=== PATIENT | male | born 1955 | race Caucasian/White ===

== ENCOUNTER → 2020-10-07 10:25 | Outpatient (CLI) | payer MEDICARE, MEDICAID, SELFPAY ==
--- NOTE | 2020-10-07 10:57 | EKG12_ITS ---
Test Reason : PRE OP Blood Pressure : / mmHG Vent. Rate : 069 BPM Atrial Rate : 069 BPM P-R Int : 198 ms QRS Dur : 078 ms QT Int : 382 ms P-R-T Axes : 086 017 048 degrees QTc Int : 409 ms Normal sinus rhythm Low voltage QRS Septal infarct , age undetermined Abnormal ECG Confirmed by LUIS ENRIQUE BLACKMON, STEPHANIE ([id number]), editorial cartoonist ISAC CADE ([id number]) on 10/08/2020 12:23:44 PM Referred By: [facility] Confirmed By:STEPHANIE DUDLEY MD
[2020-10-07 11:44] LABS: Absolute Lymphocyte Count 1.78 X10^3/uL (0.83-4.51); Absolute Neutrophil Count 5.6 X10^3/uL (2.0-7.7); Basophil# 0.03 X10^3/uL; Basophil% 0.4 % (0-1); Eosinophils% 1.2 % (0-5); Hematocrit 47.5 % (40-54); Hemoglobin 16.6 g/dL (13.0-16.5); Lymphocyte # 1.78 X10^3/ul (0.83-4.51); Lymphocyte % 21.5 % (19-41); Mean Corp Hgb Conc 34.9 g/dL (32-36); Mean Corpuscular Hgb 31.4 pg (27.0-32.0); Mean Platelet Vol. 10.4 fl (6.2-12.0); Monocyte# 0.73 X10^3/uL; Monocyte% 8.8 % (0-10); NRBC Flagged by Analyzer 0 % (0-5); Neutrophil % 67.7 % (47-70); Platelet Count 284 K/mm3 (150-450); RBC Distribution Width CV 12.6 % (11.6-14.6); RBC Distribution Width SD 41.2 fl (35.1-43.9); Red Blood Count 5.28 M/mm3 (4.6-6.2); White Blood Count 8.3 K/mm3 (4.4-11.0)
[2020-10-07 12:20] LABS: AST(SGOT) 21 U/L (15-37); Alanine Aminotransfer ALT/SGPT 33 U/L (16-61); Albumin, Serum 3.8 g/dL (3.2-5.0); Alkaline Phosphatase 101 U/L (45-117); Anion Gap 7 (5-15); BUN 19 mg/dL (7-18); BUN/Creat Ratio 16.5 RATIO (10-20); Calcium,Total 9.6 mg/dL (8.5-10.1); Chloride 103 mmol/L (98-107); Creatinine, Serum 1.15 mg/dL (0.70-1.30); EST Glomerular Filtration Rate 68 mL/min (>60); Est Glom Filt Rate - Afr Amer 82 mL/min (>60); Glucose 147 mg/dL (74-106); Potassium 4.3 mmol/L (3.5-5.1); Protein, Total 7.8 g/dL (6.4-8.2); Sodium Level 138 mmol/L (136-145)
== END ==
DX: I10 Essential (primary) hypertension (principal); E08.3293 Diabetes mellitus due to underlying condition with mild nonproliferative diabetic retinopathy without macular edema, bilateral; E78.2 Mixed hyperlipidemia
CPT/HCPCS: 36415; 80053; 85025; 93005

== ENCOUNTER → 2020-11-03 10:41 | Outpatient (CLI) | payer MEDICARE, SELFPAY ==
[2020-10-21 14:28] VITALS: BMI 34.8
--- NOTE | 2020-11-03 10:42 | ECHOCS_ITS ---
Reason For Study: PRE-OP Procedure This was a 2D Doppler, Color Flow transthoracic echocardiogram. The study was technically difficult. Contrast injection was performed. Exam performed in department. Left Ventricle Normal LV size. Left ventricular systolic function is normal. The estimated ejection fraction is 65 %. No evidence for diastolic dysfunction. No regional wall motion abnormalities noted. Right Ventricle Normal RV size. Normal systolic function. Atria Normal left atrium. Normal right atrium. No doppler evidence for ASD. Mitral Valve There is no mitral annular calcification. Normal mitral valve. Trivial mitral valve insufficiency. Tricuspid Valve Normal tricuspid valve. Trivial tricuspid valve insufficiency. Unable to estimate RV systolic pressure/pulmonary artery pressure due to technically difficult study. Aortic Valve Trisinus/trileaflet aortic valve. Mild focal aortic valve calcification. Pulmonic Valve The pulmonic valve is not well visualized. Trivial pulmonic valve insufficiency. Great Vessels Normal sized aortic root. Pericardium/Pleural No pericardial effusion. Medication 22 gauge I.V. with prn adaptor inserted into right arm. Diluted definity 3ml given slow IV push to enhance endocardial definition. MMode/2D Measurements & Calculations LVIDd: 4.9 cm IVSd: 0.90 cm Ao root diam: 3.3 cm LVIDs: 3.4 cm LVPWd: 0.90 cm RVDd: 3.3 cm FS: 31.0 % LAV(MOD-bp): 36.5 ml LVAd ap4: 38.6 cm2 SV(MOD-sp4): 88.6 ml LAV(MOD-bp) Indexed: 17.0 ml/m2 LVLd ap4: 8.5 cm LAV(MOD-sp2): 37.8 ml EDV(MOD-sp4): 141.8 ml LAV(MOD-sp4): 33.1 ml EDV(sp4-el): 149.4 ml LVAs ap4: 21.3 cm2 LVLs ap4: 7.0 cm ESV(MOD-sp4): 53.2 ml ESV(sp4-el): 55.3 ml EF(MOD-sp4): 62.5 % EF(sp4-el): 62.9 % SV(sp4-el): 94.0 ml LA A4 area: 14.3 cm2 LA dimension(2D): 3.9 cm RA A4 area: 11.0 cm2 Time Measurements MV dec time: 0.23 sec Doppler Measurements & Calculations MV E max scott: 106.9 cm/sec Lat Peak E' Scott: 13.3 cm/sec Med Peak E' Scott: 10.7 cm/sec MV A max scott: 96.7 cm/sec E/E' lat: 8.1 E/E' med: 10.0 MV E/A: 1.1 Ao V2 max: 136.3 cm/sec LV V1 max: 99.2 cm/sec PA V2 max: 114.0 cm/sec Ao max P.4 mmHg LV V1 max P.9 mmHg ECHO/Echo Complete W/ Contrast Interpretation Summary The study was technically difficult. Contrast injection was performed. Left ventricular systolic function is normal. The estimated ejection fraction is 65 %. Trivial mitral valve insufficiency. Trivial tricuspid valve insufficiency. Mild focal aortic valve calcification. Trivial pulmonic valve insufficiency. Unable to estimate RV systolic pressure/pulmonary artery pressure due to techni low difficult study. No evidence for diastolic dysfunction. Ordering Physician: Gerry Gaffney Referring Physician: GURINDER HASKINS Performed By: Chelle Peralta RDCS
== END ==
PROVIDERS: Referring Provider Internal Medicine Cardiovascular Disease; Visit Provider Internal Medicine Cardiovascular Disease
DX: R94.31 Abnormal electrocardiogram [ECG] [EKG] (principal)
CPT/HCPCS: 93306; Q9957; A4216; C8929; J3490

== ENCOUNTER 2021-10-05 11:28 | Emergency (ER) | payer MEDICARE, SELFPAY ==
[2021-10-05 11:29] VITALS: BP 155/75; PULSE 91; RESP 16; TEMP 37.1; O2SAT 97; BMI 31.8
[2021-10-05 11:39] VITALS: BP 155/75; PULSE 91; RESP 16; TEMP 37.1; O2SAT 97
[2021-10-05 11:56] LABS: Bedside Glucose 128 mg/dL (74-106)
--- NOTE | 2021-10-05 13:03 | EDS_ITS ---
HPI History of Present Illness HPI Narrative: Patient presents with pain to his right foot that has been getting worse over the past couple weeks. Patient states he was seen at the [facility] clinic today and was referred to the emergency department for further evaluation. Patient states his pain is constant and aching. Patient states it is worse with ambulation. Patient states it is better with rest. Patient denies any paresthesias or weakness. Patient denies any trauma or injury. Chief Complaint: Cellulitis Informant: patient Onset/Context/Timing Onset: Weeks (2) Context: Gradual Onset Timing: Continuous Quality of Pain: Aching Location: Right foot Worsened by: Ambulation Relieved by: Rest Associated Symptoms Associated Symptoms: Negative for Parasthesia, Weakness or Loss of Funtion PFSH [facility] Medical History Abnormal electrocardiogram Essential hypertension Pre-op evaluation Pure hypercholesterolemia Type 2 diabetes mellitus Home Medications amlodipine 5 mg tablet 5 mg PO DAILY 10/13/20 [History Last Taken Unknown] bimatoprost 0.01 % eye drops (Lumigan) 1 drp ophthalmic (eye) QPM #2.5 mL 10/13/20 [Rx Last Taken Unknown] brimonidine 0.2 %-timolol 0.5 % eye drops (Combigan) 1 drp ophthalmic (eye) TID #5 mL 10/13/20 [Rx Last Taken Unknown] glipizide 10 mg tablet 10 mg PO BID #1 TAB 10/13/20 [Rx Last Taken Unknown] losartan 50 mg tablet 50 mg PO DAILY #1 TAB 10/13/20 [Rx Last Taken Unknown] omega-3 fatty acids 1,000 mg capsule (Fish Oil Concentrate) 1,000 mg PO DAILY #1 cap 10/13/20 [Rx Last Taken Unknown] cephalexin 500 mg capsule 500 mg PO Q6 #40 CAPSULES 10/05/21 [Rx Last Taken Unknown] Allergy/AdvReac Type Severity Reaction Status Date / Time No Known Allergies Allergy Verified 10/05/21 11:29 Family History Mother Diabetes Surgical History History of bilateral cataract extraction Status post laser trabeculoplasty of eye Social History Smoking Status: Former smoker alcohol intake: never substance use type: does not use caffeine: No ROS ROS ED Constitutional Constitutional ED: Denies chills or fever(s) Eyes Eyes: Denies blurry vision or change in vision ENT ENT ED: Denies rhinorrhea or sore throat Cardiovascular Cardiovascular: Denies chest pain or palpitations Respiratory/Chest Respiratory/Chest: Denies cough or dyspnea Gastrointestinal Gastrointestinal: Denies nausea or vomiting Genitourinary Genitourinary ED: Denies dysuria or hematuria Musculoskeletal Musculoskeletal: Denies back pain or neck pain Integumentary Denies abscess or rash Neurologic Neurologic: Denies headache(s) or weakness Allergic/Immunologic Allergic/Immunologic ED: Denies mouth swelling or urticaria EXAM Physical Exam Const Vital Signs: 10/05/21 11:29 10/05/21 11:39 10/05/21 14:04 Temperature 98.7 F 98.7 F Temperature Source Temporal Temporal Pulse Rate 91 91 81 Respiratory Rate 16 16 15 Blood Pressure 155/75 H 155/75 H 146/76 H Blood Pressure Mean 101 99 Pulse Ox 97 97 97 Oxygen Delivery Method Room Air Room Air Room Air Positive well nourished and well developed General Appearance ED: well developed and NAD HEENT Reports moist mucous membranes Neck full ROM Extremity Extremity Narrative: There is tenderness over the lateral aspect of the right foot. There is a grade 2 ulceration on the plantar aspect of the distal fifth metatarsal area. There is no active bleeding. There is some mild surrounding erythema. There is no discharge or drainage. Sensation was intact to light touch in all digits. Capillary refill was less than 2 seconds in all digits. There is good range of motion. There is no bony crepitance or step-off. There is no deformity noted. Neuro oriented x3, CN's II-XII intact bilaterally, moves all extremities and no sensory deficits noted Sensorium / Orientation: alert Motor Exam: strength 5/5 throughout Psych mental status grossly normal MDM MDM MDM Narrative Medical decision making narrative: X-rays of the right foot were obtained. There are 3 views. On my interpretation, there is no acute fracture or evidence of osteomyelitis. There are some degenerative changes noted. Radiologist also interpreted the x-rays and agrees. CBC was within normal limits. Comprehensive metabolic profile was within normal limits. Patient was given a dose of Ancef here. Patient was given a prescription for Keflex. Patient was given a dressing for his wound. Patient was instructed to follow-up with his primary care physician in 5 to 7 days. Patient was also given a referral for podiatry for follow-up and was agreeable with the plan. All questions were answered. Lab Data Attestation: I reviewed the patient's lab results. Labs: Laboratory Results - last 24 hr 10/05/21 10/05/21 10/05/21 11:51 13:22 13:22 WBC 9.6 RBC 5.20 Hgb 15.8 Hct 45.8 MCV 88.1 MCH 30.4 MCHC 34.5 RDW Std Deviation 41.1 RDW Coeff of Mariella 12.7 Plt Count 287 MPV 9.6 Immature Gran % (Auto) 0.400 Neut % (Auto) 81.0 H Lymph % (Auto) 10.9 L [place] % (Auto) 7.3 Eos % (Auto) 0.2 Baso % (Auto) 0.2 Absolute Neuts (auto) 7.8 H Absolute Lymphs (auto) 1.05 Nucleated RBC % 0 Sodium 138 Potassium 4.0 Chloride 103 Carbon Dioxide 27.0 Anion Gap 8 BUN 16 Creatinine 1.13 Estim Creat Clear Calc 64.30 Est GFR (MDRD) Af Amer 83 Est GFR (MDRD) Non-Af 69 BUN/Creatinine Ratio 14.2 Glucose 112 H Calcium 9.6 Total Bilirubin 1.20 H AST 18 ALT 19 Alkaline Phosphatase 94 Total Protein 7.7 Albumin 3.5 Globulin 4.2 Albumin/Globulin Ratio 0.8 L POC Glucose 128 H Radiography Diagnostic Testing: Clinical Impression(s) from Imaging Studies Foot X-Ray 10/05/21 13:49 IMPRESSION: Degenerative changes of the tarsal articulations. Electronically Signed: Kishore Elias MD at 14:20 EDT , Discharge Plan Triage Chief Complaint: Cellulitis ED Provider: Thai Duran Dx/Rx/DC Orders Clinical Impression: Open wound of right foot, Cellulitis of right foot Instructions: ED Cellulitis Prescriptions: New cephalexin [cephalexin] 500 mg capsule 500 mg PO Q6 Qty: 40 0RF No Action amlodipine 5 mg tablet 5 mg PO DAILY Combigan 0.2-0.5 % drops 1 drp ophthalmic (eye) TID Qty: 5 0RF omega-3 fatty acids [Fish Oil Concentrate] 1,000 mg capsule 1,000 mg PO DAILY Qty: 1 0RF glipizide 10 mg tablet 10 mg PO BID Qty: 1 0RF losartan 50 mg tablet 50 mg PO DAILY Qty: 1 0RF Lumigan 0.01 % drops 1 drp ophthalmic (eye) QPM Qty: 2.5 0RF Primary Care Provider: [facility],Salena Escudero Referrals: Clem Jarquin DPM [STAFF PHYSICIAN] - 5-7 Days [facility]ud[facility] [Primary Care Provider] - 5-7 Days Disposition Disposition: Home, Self Care
[2021-10-05 13:29] LABS: Absolute Lymphocyte Count 1.05 X10^3/uL (0.83-4.51); Absolute Neutrophil Count 7.8 X10^3/uL (2.0-7.7); Basophil# 0.02 X10^3/uL; Basophil% 0.2 % (0-1); Eosinophil# 0.02 X10^3/uL; Eosinophils% 0.2 % (0-5); Hematocrit 45.8 % (40-54); Hemoglobin 15.8 g/dL (13.0-16.5); Lymphocyte # 1.05 X10^3/ul (0.83-4.51); Lymphocyte % 10.9 % (19-41); Mean Corp Hgb Conc 34.5 g/dL (32-36); Mean Corpuscular Hgb 30.4 pg (27.0-32.0); Mean Corpuscular Volume 88.1 fL (80-94); Mean Platelet Vol. 9.6 fl (6.2-12.0); Monocyte% 7.3 % (0-10); NRBC Flagged by Analyzer 0 % (0-5); Neutrophil # 7.78 X10^3/uL (2.7-7.7); Platelet Count 287 K/mm3 (150-450); RBC Distribution Width CV 12.7 % (11.6-14.6); RBC Distribution Width SD 41.1 fl (35.1-43.9); White Blood Count 9.6 K/mm3 (4.4-11.0)
[2021-10-05 13:44] LABS: ALB/GLOB Ratio 0.8 RATIO (0.9-2.4); AST(SGOT) 18 U/L (15-37); Alanine Aminotransfer ALT/SGPT 19 U/L (16-61); Albumin, Serum 3.5 g/dL (3.2-5.0); Alkaline Phosphatase 94 U/L (45-117); Anion Gap 8 (5-15); BUN 16 mg/dL (7-18); BUN/Creat Ratio 14.2 RATIO (10-20); Calcium,Total 9.6 mg/dL (8.5-10.1); Chloride 103 mmol/L (98-107); Creatinine, Serum 1.13 mg/dL (0.70-1.30); EST Glomerular Filtration Rate 69 mL/min (>60); Est Glom Filt Rate - Afr Amer 83 mL/min (>60); Globulin 4.2 g/dL (2.2-4.2); Glucose 112 mg/dL (74-106); Protein, Total 7.7 g/dL (6.4-8.2); Sodium Level 138 mmol/L (136-145)
--- NOTE | 2021-10-05 13:49 | RAD_ITS ---
EXAM: XR RIGHT FOOT COMPLETE, 3 OR MORE VIEWS CLINICAL INDICATION: Injury/Pain Technologist Notes WOUND ON RIGHT FOOT WITH SWELLING. TECHNIQUE: Frontal, lateral and oblique views of the right foot. This report was created using Abril report generation technology. COMPARISON: None. FINDINGS: BONES/JOINTS: Degenerative changes of the tarsal articulations. There is a calcaneal spur. There is an enthesophyte involving the posterior superior calcaneus at the site of insertion of the Achilles tendon. No acute fracture. No subluxation. Normal alignment. No sclerotic or destructive changes observed. SOFT TISSUES: Unremarkable. No soft tissue swelling or gas. No radiopaque foreign body. VASCULATURE: There are atherosclerotic vascular calcifications. RAD/Foot min 3 Views IMPRESSION: Degenerative changes of the tarsal articulations. Electronically Signed: Kishore Elias MD at 14:20 EDT Reading Location ID and State: [facility] / [place] , Service support ,
[2021-10-05] MEDS: Cefazolin 1 GM/50 ML BAG IV (13:51)
[2021-10-05 14:04] VITALS: BP 146/76; PULSE 81; RESP 15; O2SAT 97
[2021-10-05 15:05] VITALS: BP 141/78; O2SAT 97
== END 2021-10-05 15:16 | disposition home or self-care (01) ==
PROVIDERS: Emergency Provider Emergency Medicine; Visit Provider Emergency Medicine
DX: S91.301A Unspecified open wound, right foot, initial encounter (principal); L03.115 Cellulitis of right lower limb; Z87.891 Personal history of nicotine dependence; X58.XXXA Exposure to other specified factors, initial encounter
CPT/HCPCS: 73630; 80053; 82962; 85025; 87070; 87077; 87186; 87205; 96365; 99283; J7030; A4216

== ENCOUNTER 2022-12-28 06:21 | Day surgery (SDC) | payer MEDICARE, MEDICAID, SELFPAY ==
--- NOTE | 2022-12-28 | IMM_PTH ---
PATIENT: KRYSTA BRUNSON LOC: EN U#:[id number] AGE/SX: 67/M ROOM: RE12/28/[address]: Dr. Lindsey Ritchie MD : 1955 BED: DIS: 12/28/2022 SPEC #: [id number] RECD: 12/29/22 14:19 STATUS: LIZZY REQ #: [id number] DARRON: 12/28/22 00:[address]: Lindsey Ritchie DEPT: IMMUNOHISTOCHEMISTRY RECD BY: Taylor Parr ENTERED: 12/29/22 14:21 SP TYPE: IMMUNO OTHR DR: [facility] Tissues: B - Rectum, NOS Procedures: MSH2 (add) MLH-1 (add) MSH6 (add) Anti-PMS2 (add) HER2 DUSTIN (add) P53 (add) MOC-31 (add) KI-67 (initial) PHYSICIAN [facility] INSTIT[facility] [address] [address] SPECIMEN INFORMATION: Tissue Source: B - Rectum mass biopsy Clinical Info: Diarrhea, bright red blood per rectum Specimen Number: [id number] CPT code: 89709, 30132 x7 METHODOLOGY: Deparaffinized sections of prefer/formalin-fixed tissue or PAP/DQ stained slides are incubated with monoclonal/polyclonal antibodies/oligonucleotide probes. Localization is made via biotin free immunoperoxidase method. Appropriate controls are performed and reacted as expected. Results on target cell population are indicated in the following table: RESULTS: ANTIBODY / CLONE RESULT Block B Her-2neu (CB11) negative (0) MOC-31 (4561) positive MLH-1 (M1) positive MSH2 (25D12) positive MSH6 (44) positive PMS2 (LSC9324) positive Ki-67 (30-9) positive, high P53 (DO-7) positive, missense mutation pattern These tests were developed and their performance characteristics determined by [facility]. They may not have been cleared or approved by the U.S. Food and Drug Administration. The FDA has determined that such clearance or approval is not necessary. The above immunohistochemical/dualISH markers are ordered and reviewed by the Pathologist. INTERPRETATION: B. Rectum mass, biopsy: Invasive adenocarcinoma. Result of Microsatellite Instability Study: Negative (no loss of mismatch protein; no microsatellite instability detected). SJ:lyric 12/30/2022
--- NOTE | 2022-12-28 | COLBX_PTH ---
PATIENT: KRYSTA BRUNSON LOC: EN U#:[id number] AGE/SX: 67/M ROOM: RE12/28/[address]: Dr. Lindsey Ritchie MD : 1955 BED: DIS: 12/28/2022 SPEC #: [id number] RECD: 12/28/22 08:03 STATUS: LIZZY NEHEMIAS #: [id number] DARRON: 12/28/22 00:[address]: Lindsey Ritchie DEPT: SURGICAL PATHOLOGY RECD BY: Taylor Parr ENTERED: 12/28/22 09:17 SP TYPE: COLON BX OTHR DR: Sal[facility] Tissues: A - Rectum, NOS B - Rectum, NOS Procedures: Frozen Section (charge) Surgery Specimen Level IV HEADER OPERATION: Colonoscopy with biopsies PRE-OP DIAGNOSIS: Diarrhea, bright red blood per rectum TISSUE SUBMITTED: A - Rectum mass biopsy, frozen section, B - Rectum mass biopsy FROZEN SECTION DIAGNOSIS Rectal mass, biopsy: Invasive adenocarcinoma. SJ:lyric 12/28/2022 MICROSCOPIC DIAGNOSIS A. Rectal mass, biopsy: Invasive adenocarcinoma. B. 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 See comment. SJ:lyric 12/29/2022 COMMENT B. Immunohistochemistry ([id number]) for microsatellite instability (mismatch repair of protein) will be performed and the results will be reported separately. Case has been reviewed in consultation with Dr. Rhoades who concurs with the above diagnosis. IDC:AM MICROSCOPIC DESCRIPTION Slides are reviewed. GROSS DESCRIPTION A - Received fresh for frozen section diagnosis labeled with the patient's name is a specimen designated rectum mass biopsy. The specimen consists of multiple irregular fragments of light blunt soft tissue that in aggregate measure 0.5 x 0.25 x 0.25 cm. The specimen is totally submitted for frozen section diagnosis in one cassette. B - Received in fixative is one container labeled with the patient's name and designated rectum mass biopsy. The specimen consists of multiple irregular fragments of light blunt soft tissue that in aggregate measure 1.0 x 0.3 x 0.1 cm. The specimen is totally submitted in one cassette. / SJ:lyric 12/28/2022 TC:0 CPT: 54068 x2, 15742
--- NOTE | 2022-12-28 06:38 | HP.PCM_ITS ---
History and Physical Date of Admission: 12/28/22 Date of Service: 12/21/22 MR#: [id number] Acct: [id number] Name: KRYSTA BRUNSON Rep #: [id number] : 1955 Provider: Dr. Lindsey Ritchie MD Age/Sex: 67/M Location: [facility] Status: Signed Intake Vital Signs 10/05/2210:29 12/21/2308:27 Height 5 ft 9 in 5 ft 9 in Weight: 186 lb BMI 27.4 BP 182/100 H Blood Pressure Location Rt brachial Position Sitting Respiration 19 H Pulse 76 Pulse Source Monitor Pulse Oximetry (%) 98 Oxygen Delivery Method room air Intake Visit Reasons: DIARRHEA, MELENA, WEIGHT LOSS Chief Complaint: diarrhea,melena,weightloss Allergies No Known Allergies Allergy (Verified 12/21/22 09:28) Medications amlodipine 5 mg tablet 5 mg PO DAILY 10/13/20 [History Confirmed 12/21/22] glipizide 10 mg tablet 10 mg PO BID #1 TAB 10/13/20 [Rx Confirmed 12/21/22] losartan 50 mg tablet 50 mg PO DAILY #1 TAB 10/13/20 [Rx Confirmed 12/21/22] omega-3 fatty acids 1,000 mg capsule (Fish Oil Concentrate) 1,000 mg PO DAILY #1 cap 10/13/20 [Rx Confirmed 12/21/22] [facility] Medical History (Updated 12/21/22 @ 09:[address] Lindsey Ritchie MD) Abnormal electrocardiogram Diarrhea Essential hypertension Pre-op evaluation Pure hypercholesterolemia Type 2 diabetes mellitus Surgical History History of bilateral cataract extraction Status post laser trabeculoplasty of eye Family History Mother Diabetes Social History Smoking Status: Former smoker alcohol intake: never substance use type: does not use caffeine: No HPI HPI HPI: 67-year-old male presents due to bright red blood/dark or red blood per rectum. Patient states that he has had this for the last couple of years but is gotten worse. Patient states he has this daily. Denies any abdominal pain states he may have little discomfort with bowel movements occasionally. Denies any nausea vomiting or reflux. Patient does have issues with fecal incontinence occasionally after eating depending on the meal size about 2-3 times a week. Patient states he was trying to lose weight intentionally and was decreasing the amount of food that he ate he states years ago used to be over 300 pounds and lost maybe 30 pounds in the last year but does not think that it is excessive. Patient has no family history of colon cancer. Patient has never had a colonoscopy. ROS General General: Yes weight change; No appetite, fatigue, colon cancer, breast cancer or weakness HEENT HEENT: Yes eye injury and eye surgery; No difficulty swallowing, swollen glands or hoarseness Endo Endocrine: Yes diabetes mellitus; No thyroid disease, thyroid cancer, Hair loss, heat intolerance or cold intolerance Skin Skin: No rash or changing moles Breast Breast: No left breast lump, right breast lump, nipple discharge, breast pain, abnormal mammogram, abnormal US or breast enlargement Musc Musculoskeletal: No back problems, arthritis, rheumatoid arthritis, gout or joint pain Cardio Cardiovascular: No murmur, pacemaker, heart disease, atrial fibrillation, high blood pressure, heart attack, heart stent, palpitations, shortness of breat with exertion or chest pain Psych Psychiatric: No depression, anxiety or hearing voices Resp Respiratory: No shortness of breath, No sleep apnea, No cough, No COPD, No asthma, No emphysema and No wheezing Gastro Gastrointestinal: No abdominal pain, Yes diarrhea, Yes constipation, Yes blood in stool, No acid reflux, No hemorrhoids, No ulcers, No gallbladder problem and No black,tarry stools Justus Hematologic: No blood thinners, No blood disorders, No bleeding, No anemia and No blood clots Neuro Neurologic: No system reviewed and no additional complaints, except as documen steven, No as per HPI, No abnormal gait, No abnormal hearing, No abnormal movements, No abnormal speech, No behavioral changes, No burning sensations, No confusion, No convulsions, No disequilibrium, No dizziness, No localized weakness, No frequent falls, No headache(s), No lack of coordination, No loss of vision, No memory loss, No numbness, No other visual disturbances, No radicular pain, No restless legs, No sensory deficit, No syncope, No tingling, No tremor(s), No weakness and No other Exam Const General: cooperative and no acute distress [facility] Head: normocephalic and atraumatic Neck Neck: supple Resp Effort & Inspection: normal respiratory effort Cardio Rate: regular rate GI Inspection: non-distended Palpation: soft and nontender Other: BASHIR: No internal and external hemorrhoids on exam, no masses, liquid brown stool with blood tinge. Skin General: no rashes or lesions noted Neuro General: CN's II-XI intact bilaterally Extrem General: normal to inspection Psych Mental Status: mental status grossly normal Attitude: cooperative Assessment and Plan Assessment and Plan (1) Diarrhea: Status: Acute (2) BRBPR (bright red blood per rectum): Status: Acute Orders: Orders ENTERIC PATHOGEN PANEL STOOL Today K58.9 - Irritable bowel syndrome without diarrhea, R19.7 - Diarrhea, unspecified Ova and Parasites 8623 Today K58.9 - Irritable bowel syndrome without diarrhea Stool Occult Blood iFOB Today R19.7 - Diarrhea, unspecified Stool Lactoferrin/WBC Today K58.9 - Irritable bowel syndrome without diarrhea Colonoscopy Today Plan We will get stool studies patient's been having diarrhea mostly patient's of the best historian but that may be 80/20 mostly diarrhea versus formed stool. On exam patient had liquidy blunt stool blood tinge. Patient currently states his weight loss was intentional lost about 30 pounds last year but he has been trying to eat less. I have discussed the above with the patient. I have offered the patient colonoscopy for evaluation. I have explained the risks/benefits of the procedure and described the procedure. I have discussed the risks with the patient, including but not limited to: infection, bleeding, perforation of the GI tract requiring emergency surgery, inability to complete the procedure, injury to any internal organs, complications of anesthesia, etc. - the patient understands and agrees to proceed. I have answered all the patient's questions to the patient's satisfaction and the patient has no further questions. The patient has been given instructions for the colon cleansing preparation. 1 day clears, MiraLAX Dulcolax split prep. Lindsey Ritchie M.D. Pager: [phone] [facility] [address] [place] [address], [facility], [address] [place] [address] Office: [phone] Coding Level of Care Code Off vis,new,level 4 Diagnoses Diarrhea R19.7 BRBPR (bright red blood per rectum) K62.5 12/21/22 0959 <Electronically signed by Lindsey Ritchie MD> Date Lindsey Ritchie MD
[2022-12-28 07:02] VITALS: BP 160/85; PULSE 82; RESP 17; TEMP 36.8; O2SAT 99; BMI 28.1
[2022-12-28] MEDS: Lactated Ringers 1,000 ML 15 ML IV (07:02)
[2022-12-28 07:08] LABS: Bedside Glucose 65 mg/dL (74-106)
--- NOTE | 2022-12-28 08:11 | CT_ITS ---
STUDY: CT CHEST, ABDOMEN T PELVIS WITH CONTRAST REASON FOR EXAM: Male, 67 years old. Rectal mass -- cancer workup. Rectal bleeding. 30 pound weight loss. RADIATION DOSAGE (If Supplied By Facility): CTDIvol = ( 19.83 ) mGy, DLP = ( 1593.85 ) mGycm TECHNIQUE: Transaxial imaging was performed following intravenous administration of Oral and amp; IV Gastrografin and amp; 100mL Isovue-300. Multiplanar coronal and sagittal images were reformatted. Individualized dose optimization techniques were used for this CT. COMPARISON: No relevant priors. FINDINGS: CHEST There is elevation of the right hemidiaphragm. Mild degree of linear atelectasis at the lung bases. There is no demonstrated pleural abnormality. There are calcifications of the coronary arteries. Normal mediastinum. Normal hilar regions. Normal unenhanced pulmonary arteries. There is atherosclerotic calcification of the aortic arch with tortuosity and elongation of the aortic arch and descending thoracic aorta. There are multi-level degenerative changes of the thoracic spine. There is no demonstrated abnormality of the visualized upper abdomen. ABDOMEN The visualized lung bases are unremarkable. The visualized portions of the heart are within normal limits. Normal liver. Normal gallbladder and extrahepatic biliary system. Normal spleen. Normal pancreas. Normal bilateral adrenal glands. 3 mm nonobstructive calculus in the lower pole calyx of the right kidney. Punctate nonobstructive calculi in the midportion right kidney. There is also evidence of a 5.6 mm calculus in the upper pole calyx of the right kidney. There are 2 adjacent nonobstructive intrarenal calculi in the upper pole of the left kidney. The larger calculus measures 4.3 mm. There is also evidence of a 5.2 mm calculus in the lower pole calyx of the left kidney. Normal visualized stomach. Normal small intestine. Large circumferential soft tissue mass in the rectosigmoid colon with narrowing of the lumen. Increased markings are seen in the surrounding peritoneal fat. Several small pericolonic lymph nodes are seen at that site. Dilatation of the transverse colon. The appendix is visualized and appears normal. There is diffuse atherosclerotic calcification of the abdominal aorta and its major visceral branches, without a demonstrated aneurysm. Normal inferior vena cava. Normal retroperitoneum. Normal abdominal wall. There are degenerative changes of the visualized lumbar spine. Deformity of the superior endplate of the L3 vertebrae with spondylosis. This may be traumatic in nature. PELVIS Mild degree of diffuse bladder wall thickening. Prostatic enlargement. There is calcification of the vas deferens. There is no pelvic fluid. There is diffuse atherosclerotic calcification of the pelvic arteries. CT/CT Chest, Abd, Pel w/Contrast IMPRESSION: Large circumferential mass involving the rectosigmoid colon with small lymph nodes seen in the adjacent pelvic fat. Multiple small nonobstructive bilateral intrarenal calculi. Prostatic enlargement. Electronically Signed: Gray Mathew MD at 12:34 EDT ,
[2022-12-28 08:20] VITALS: BP 160/85; BP 72/43; PULSE 61; RESP 16; TEMP 36.4; O2SAT 93
[2022-12-28 08:25] VITALS: BP 160/85; BP 89/68; PULSE 61; RESP 16; O2SAT 98
--- NOTE | 2022-12-28 08:26 | OP.COLON_ITS ---
Patient Name: Claudio Mclaughlin Procedure Date: 12/28/2022 7:20 AM Date of : 1955 Age: 67 Procedure: Colonoscopy Indications: Rectal bleeding Providers: Lindsey Ritchie MD Referring MD: Salena Escudero [facility] Medicines: Monitored Anesthesia Care Patient Profile: This is a 67 year old male. Last Colonoscopy: none. The patient's first colonoscopy is today. Complications: No immediate complications. Procedure: Pre-Anesthesia Assessment: - Prior to the procedure, a History and Physical was performed, and patient medications and allergies were reviewed. The patient's tolerance of previous anesthesia was also reviewed. The risks and benefits of the procedure and the sedation options and risks were discussed with the patient. All questions were answered, and informed consent was obtained. Prior Anticoagulants: The patient has taken no anticoagulant or antiplatelet agents. ASA Grade Assessment: Per anesthesia. After reviewing the risks and benefits, the patient was deemed in satisfactory condition to undergo the procedure. After I obtained informed consent, the scope was passed under direct vision. Throughout the procedure, the patient's blood pressure, pulse, and oxygen saturations were monitored continuously. The Colonoscope was introduced through the anus and advanced to the transverse colon. The colonoscopy was technically difficult and complex due to poor bowel prep with stool present. The patient tolerated the procedure well. The quality of the bowel preparation was poor. Scope In: 7:51:30 AM Scope Withdrawal Time 0 hours 10 minutes 4 seconds Scope Out: 8:10:42 AM Total Procedure Duration Time 0 hours 19 minutes 12 seconds Findings: The perianal and digital rectal examinations were normal. A fungating partially obstructing large mass was found in the rectum. The mass was circumferential. The mass measured eight cm in length. Oozing was present. Biopsies were taken with a cold forceps for histology. scope advanced to transverse colon- unable to see small polyps due to stool and fibrous debris with continued to clog the scope Impression: - Preparation of the colon was poor. - Likely malignant partially obstructing tumor in the rectum. Biopsied. - The examination was suspicious for a malignant-appearing tumor. Biopsied. Recommendation: - Discharge patient to home. - Resume previous diet. - Continue present medications. - Await pathology results. - Repeat colonoscopy at appointment to be scheduled because the bowel preparation was poor. Procedure Code(s): --- Professional --- 38583, 52, Colonoscopy, flexible; with biopsy, single or multiple Diagnosis Code(s): --- Professional --- D49.0, Neoplasm of unspecified behavior of digestive system K56.690, Other partial intestinal obstruction K62.5, Hemorrhage of anus and rectum CPT copyright 2021 [employer]. All rights reserved. The codes documented in this report are preliminary and upon coat fitter review may be revised to meet current compliance requirements. MD Lindsey Dugan MD 12/28/2022 8:25:51 AM This report has been signed electronically. Number of Addenda: 0 Note Initiated On: 12/28/2022 7:20 AM
--- NOTE | 2022-12-28 08:26 | PCM.PN.BLA ---
Progress Note Frozen from rectal mass was consistent with adenocarcinoma.
--- NOTE | 2022-12-28 08:27 | OP.CCLET_ITS ---
12/28/2022 Salena Escudero [facility] Re : Colonoscopy procedure for Claudio Deleon [facility] This procedure was performed on Wednesday, December 28, 2022. My impressions and recommendations are as follows: Impressions : - Preparation of the colon was poor. - Likely malignant partially obstructing tumor in the rectum. Biopsied. - The examination was suspicious for a malignant-appearing tumor. Biopsied. Recommendations : - Discharge patient to home. - Resume previous diet. - Continue present medications. - Await pathology results. - Repeat colonoscopy at appointment to be scheduled because the bowel preparation was poor. My findings are described in the full procedure note, which is enclosed. If I can be of further assistance, please feel free to contact me at Doctor phone number(s): , Work: . Sincerely, MD Lindsey Dugan MD 12/28/2022 8:25:51 AM This report has been signed electronically.
[2022-12-28 08:30] VITALS: BP 160/85; BP 98/44; PULSE 67; RESP 16; O2SAT 100
--- NOTE | 2022-12-28 09:10 | SUR.PHASEI ---
UNABLE TO OBTAIN VITALS SIGNS AFTER 8:40, PT ON BEDSIDE COMMODE.
[2022-12-28 09:11] VITALS: BP 125/48; BP 160/85; PULSE 64; RESP 18; TEMP 36.1; O2SAT 97
[2022-12-28 09:29] LABS: Absolute Lymphocyte Count 1.31 X10^3/uL (0.83-4.51); Absolute Neutrophil Count 5.3 X10^3/uL (2.0-7.7); Basophil# 0.03 X10^3/uL; Basophil% 0.4 % (0-1); Eosinophil# 0.11 X10^3/uL; Eosinophils% 1.5 % (0-5); Hematocrit 42.4 % (40-54); Lymphocyte # 1.31 X10^3/ul (0.83-4.51); Lymphocyte % 17.4 % (19-41); Mean Corpuscular Hgb 30.6 pg (27.0-32.0); Mean Corpuscular Volume 92.6 fL (80-94); Mean Platelet Vol. 9.9 fl (6.2-12.0); Monocyte# 0.72 X10^3/uL; Monocyte% 9.6 % (0-10); NRBC Flagged by Analyzer 0 % (0-5); Neutrophil # 5.32 X10^3/uL (2.7-7.7); Neutrophil % 70.7 % (47-70); Platelet Count 277 K/mm3 (150-450); RBC Distribution Width CV 13.3 % (11.6-14.6); RBC Distribution Width SD 45.4 fl (35.1-43.9); Red Blood Count 4.58 M/mm3 (4.6-6.2); White Blood Count 7.5 K/mm3 (4.4-11.0)
[2022-12-28 10:07] LABS: AST(SGOT) 15 U/L (15-37); Alanine Aminotransfer ALT/SGPT 15 U/L (16-61); Alkaline Phosphatase 102 U/L (45-117); Bilirubin, Direct 0.33 mg/dL (0.00-0.30); Globulin 3.8 g/dL (2.2-4.2); Protein, Total 6.8 g/dL (6.4-8.2)
[2022-12-28 10:38] LABS: Anion Gap 4 (5-15); BUN 15 mg/dL (7-18); BUN/Creat Ratio 14.6 RATIO (10-20); Calcium,Total 8.8 mg/dL (8.5-10.1); Chloride 105 mmol/L (98-107); Creatinine, Serum 1.03 mg/dL (0.70-1.30); EST Glomerular Filtration Rate 76 mL/min (>60); Est Glom Filt Rate - Afr Amer 92 mL/min (>60); Estimated Creatinine Clearance 67.33 ml/min; Glucose 81 mg/dL (74-106); Potassium 4.2 mmol/L (3.5-5.1); Sodium Level 137 mmol/L (136-145)
[2022-12-28 11:31] VITALS: BP 160/85
[2022-12-29 04:07] LABS: Carcinoembryonic Antigen 1.9 ng/mL (0.0-4.7)
== END 2022-12-28 11:32 | disposition home or self-care (01) ==
LOC: EN 06:22 → AC 06:23
PROVIDERS: Visit Provider Surgery
PROC: 0DJD8ZZ Inspection of Lower Intestinal Tract, Via Natural or Artificial Opening Endoscopic (ICD-10-PCS; CPT 45378; principal; 2022-12-28 07:55)
DX: C20 Malignant neoplasm of rectum (principal); K56.690 Other partial intestinal obstruction; E11.9 Type 2 diabetes mellitus without complications; I10 Essential (primary) hypertension; Z79.899 Other long term (current) drug therapy; Z79.84 Long term (current) use of oral hypoglycemic drugs; Z87.891 Personal history of nicotine dependence
CPT/HCPCS: 45380; 71260; 74177; 80048; 80076; 81002; 82378; 82962; 85025; 88305; 88331; 88341; 88342; J7120; Q9967; J2405

== ENCOUNTER → 2023-12-26 | Outpatient (CLI) | payer MEDICARE, SELFPAY ==
[2023-12-26 12:06] LABS: ALB/GLOB Ratio 0.8 RATIO (0.9-2.4); AST(SGOT) 18 U/L (15-37); Alanine Aminotransfer ALT/SGPT 17 U/L (16-61); Albumin, Serum 3.5 g/dL (3.2-5.0); Alkaline Phosphatase 113 U/L (45-117); Anion Gap 5 (5-15); BUN 15 mg/dL (7-18); BUN/Creat Ratio 15.2 RATIO (10-20); Chloride 104 mmol/L (98-107); Cholesterol 145 mg/dL (200); Creatinine, Serum 0.98 mg/dL (0.70-1.30); EST Glomerular Filtration Rate 80 mL/min (>60); Est Glom Filt Rate - Afr Amer 97 mL/min (>60); Globulin 4.4 g/dL (2.2-4.2); Glucose 101 mg/dL (74-106); High Density Lipoprotein 73 mg/dL; Potassium 4.1 mmol/L (3.5-5.1); Protein, Total 7.9 g/dL (6.4-8.2); Sodium Level 137 mmol/L (136-145); Triglycerides 83 mg/dL; Very Low Density Lipoprotein 17 mg/dL (5-40)
[2023-12-26 12:22] LABS: Absolute Lymphocyte Count 2.04 X10^3/uL (0.83-4.51); Absolute Neutrophil Count 5.6 X10^3/uL (2.0-7.7); Basophil# 0.03 X10^3/uL; Basophil% 0.4 % (0-1); Eosinophil# 0.15 X10^3/uL; Eosinophils% 1.8 % (0-5); Hematocrit 42.5 % (40-54); Hemoglobin 13.7 g/dL (13.0-16.5); Lymphocyte # 2.04 X10^3/ul (0.83-4.51); Lymphocyte % 23.9 % (19-41); Mean Corp Hgb Conc 32.2 g/dL (32-36); Mean Corpuscular Hgb 29.2 pg (27.0-32.0); Mean Corpuscular Volume 90.6 fL (80-94); Mean Platelet Vol. 10.1 fl (6.2-12.0); Monocyte% 8.2 % (0-10); NRBC Flagged by Analyzer 0 % (0-5); Neutrophil # 5.58 X10^3/uL (2.7-7.7); Neutrophil % 65.3 % (47-70); Platelet Count 341 K/mm3 (150-450); RBC Distribution Width CV 13.6 % (11.6-14.6); RBC Distribution Width SD 44.8 fl (35.1-43.9); Red Blood Count 4.69 M/mm3 (4.6-6.2); White Blood Count 8.5 K/mm3 (4.4-11.0)
[2023-12-26 14:07] LABS: Color, Urine Yellow (Yellow); Glucose, Dipstick Normal (Normal); Ketone-Dipstick Negative (Negative); Leukocyte Esterase-Dipstick 25 /ul (Negative); Nitrite-Dipstick Negative (Negative); Occult Blood-Urine 10 /ul (Negative); Protein-Dipstick 30 mg/dl (Negative); Urine Bilirubin Dipstick Negative (Negative); Urine Clarity Turbid (Clear); Urine Urobilinogen 1 mg/dl (Normal)
== END | disposition home or self-care (01) ==
LOC: VSLAB 10:42
PROVIDERS: PCP Nurse Practitioner Family; Visit Provider Nurse Practitioner Family
DX: E11.9 Type 2 diabetes mellitus without complications (principal); E78.2 Mixed hyperlipidemia; E55.9 Vitamin D deficiency, unspecified; F44.89 Other dissociative and conversion disorders; R30.0 Dysuria
CPT/HCPCS: 36415; 80053; 80061; 81002; 82306; 85025; 87086; 87088

== ENCOUNTER → 2024-03-26 | Outpatient (CLI) | payer MEDICARE, SELFPAY ==
[2024-03-26 12:52] LABS: Absolute Lymphocyte Count 1.52 X10^3/uL (0.83-4.51); Absolute Neutrophil Count 4.8 X10^3/uL (2.0-7.7); Basophil# 0.04 X10^3/uL; Basophil% 0.5 % (0-1); Eosinophil# 0.11 X10^3/uL; Eosinophils% 1.5 % (0-5); Hematocrit 39.2 % (40-54); Hemoglobin 12.8 g/dL (13.0-16.5); Lymphocyte # 1.52 X10^3/ul (0.83-4.51); Lymphocyte % 20.6 % (19-41); Mean Corp Hgb Conc 32.7 g/dL (32-36); Mean Corpuscular Volume 88.9 fL (80-94); Mean Platelet Vol. 9.4 fl (6.2-12.0); Monocyte# 0.91 X10^3/uL; Monocyte% 12.3 % (0-10); NRBC Flagged by Analyzer 0 % (0-5); Neutrophil # 4.78 X10^3/uL (2.7-7.7); Neutrophil % 64.8 % (47-70); Platelet Count 312 K/mm3 (150-450); RBC Distribution Width CV 13.2 % (11.6-14.6); RBC Distribution Width SD 43.3 fl (35.1-43.9); Red Blood Count 4.41 M/mm3 (4.6-6.2); White Blood Count 7.4 K/mm3 (4.4-11.0)
[2024-03-26 13:18] LABS: ALB/GLOB Ratio 0.7 RATIO (0.9-2.4); AST(SGOT) 17 U/L (15-37); Alanine Aminotransfer ALT/SGPT 19 U/L (16-61); Albumin, Serum 3.2 g/dL (3.2-5.0); Alkaline Phosphatase 105 U/L (45-117); Anion Gap 4 (5-15); BUN 22 mg/dL (7-18); BUN/Creat Ratio 20.8 RATIO (10-20); Calcium,Total 9.6 mg/dL (8.5-10.1); Chloride 103 mmol/L (98-107); Creatinine, Serum 1.06 mg/dL (0.70-1.30); EST Glomerular Filtration Rate 74 mL/min (>60); Est Glom Filt Rate - Afr Amer 89 mL/min (>60); Globulin 4.5 g/dL (2.2-4.2); Glucose 86 mg/dL (74-106); Potassium 4.1 mmol/L (3.5-5.1); Protein, Total 7.7 g/dL (6.4-8.2); Sodium Level 137 mmol/L (136-145)
== END | disposition home or self-care (01) ==
LOC: VSLAB 10:38
PROVIDERS: PCP Nurse Practitioner Family; Visit Provider Nurse Practitioner Family
DX: C18.9 Malignant neoplasm of colon, unspecified (principal)
CPT/HCPCS: 36415; 80053; 85025

== ENCOUNTER 2024-04-08 16:13 | Inpatient (IN) | payer MEDICARE, SELFPAY ==
[2024-04-08] VITALS (31 sets, daily range): BP systolic 64–127; BP diastolic 19–81; PULSE 71–83; RESP 13–56; TEMP 36.6–36.9; O2SAT 95–99; BMI 27.4
--- NOTE | 2024-04-08 16:33 | EKG12_ITS ---
Test Reason : GENERAL Blood Pressure : */* mmHG Vent. Rate : 75 BPM Atrial Rate : 75 BPM P-R Int : 184 ms QRS Dur : 78 ms QT Int : 352 ms P-R-T Axes : -4 46 11 degrees QTcB Int : 393 ms Normal sinus rhythm Normal ECG Confirmed by ALLEGRA BLACKMON, MUNDO ([id number]), assistant editor ISAC CADE ([id number]) on 04/11/2024 2:25:03 PM Referred By: Confirmed By: MUNDO DINH MD
--- NOTE | 2024-04-08 17:01 | CT_ITS ---
STUDY: CT CERVICAL SPINE WITHOUT CONTRAST REASON FOR EXAM: Male, 69 years old. Trauma RADIATION DOSAGE (If Supplied By Facility): CTDIvol = ( 22.18 ) mGy, DLP = ( 441.74 ) mGycm TECHNIQUE: High resolution transaxial imaging was performed without contrast material. Sagittal and coronal images were reconstructed. Individualized dose optimization techniques were used for this CT. COMPARISON: None FINDINGS: Normal craniovertebral junction. There are degenerative changes of the anterior atlantoaxial articulation. Normal odontoid process. There is reversal of the normal cervical lordosis. There is no acute fracture. There is demineralization of the vertebral bodies and posterior osseous elements. C2-3: Mild spurring. Mild facet spurring. No canal stenosis. Neural foramina are patent. C3-4: Disc space narrowing. Spurring. Facet spurring. Mild canal stenosis. Left foraminal narrowing. C4-5: Disc space narrowing. Spurring and disc bulge. Mild facet spurring. Moderate canal stenosis. Mild foraminal narrowing. C5-6: Disc space narrowing with endplate change. Spurring. Mild facet spurring. Severe canal stenosis. Bilateral foraminal narrowing. C6-7: Disc space narrowing. Spurring asymmetric to the left. Facet spurring. Moderate canal stenosis. Right greater than left foraminal narrowing. C7-T1: Disc space narrowing. Spurring is noted to the left. No canal stenosis. Left foraminal narrowing. Normal visualized soft tissue structures. There are atherosclerotic calcifications. CT/Spine Cervical without Contras IMPRESSION: Multilevel degenerative changes, as described above. Electronically Signed: Reed Delgado MD at 19:48 EST ,
--- NOTE | 2024-04-08 17:01 | CT_ITS ---
STUDY: CT BRAIN WITHOUT CONTRAST REASON FOR EXAM: Male, 69 years old. Fall, trauma RADIATION DOSAGE (If Supplied By Facility): CTDIvol = ( 44.99 ) mGy, DLP = ( 829.85 ) mGycm TECHNIQUE: Transaxial CT imaging of the brain was performed without administration of intravenous contrast material. Individualized dose optimization techniques were used for this CT. COMPARISON: No relevant priors. FINDINGS: Normal soft tissue structures. Normal calvarium. There is moderate cerebral atrophy with widening of the extra-axial spaces and ventricular dilatation. Normal white matter tracts of the cerebral hemispheres. Normal basal ganglia and thalami. Normal brainstem. There is mild cerebellar atrophy. 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 There is no intracranial hemorrhage. There are no findings of an acute ischemic infarction. Normal visualized paranasal sinuses. CT/Brain/Head without Contrast IMPRESSION: Chronic involutional changes of the brain. Electronically Signed: Reed Delgado MD at 19:32 EST ,
[2024-04-08 17:02] LABS: Eosinophil# 0.16 X10^3/uL; Hematocrit 35.3 % (40-54); Hemoglobin 11.8 g/dL (13.0-16.5); Lymphocyte # 0.79 X10^3/ul (0.83-4.51); Mean Corp Hgb Conc 33.4 g/dL (32-36); Mean Corpuscular Hgb 29.2 pg (27.0-32.0); Mean Corpuscular Volume 87.4 fL (80-94); Mean Platelet Vol. 9.6 fl (6.2-12.0); Monocyte# 0.79 X10^3/uL; NRBC Flagged by Analyzer 0 % (0-5); Neutrophil # 22.63 X10^3/uL (2.7-7.7); POSITIVE DIFFERENTIAL YES; Platelet Count 227 K/mm3 (150-450); RBC Distribution Width CV 13.4 % (11.6-14.6); RBC Distribution Width SD 42.9 fl (35.1-43.9); Red Blood Count 4.04 M/mm3 (4.6-6.2); White Blood Count 24.8 K/mm3 (4.4-11.0)
[2024-04-08 17:08] LABS: Differential Indicated SCAN CRITERIA MET
[2024-04-08] MEDS: 0.9% Normal Saline (1000mL) 1,000 ML 1000 ML IV (17:20)
[2024-04-08 17:21] LABS: Lactic Acid 1.7 mmol/L (0.4-1.9)
[2024-04-08 17:23] LABS: ALB/GLOB Ratio 0.7 RATIO (0.9-2.4); AST(SGOT) 68 U/L (15-37); Alanine Aminotransfer ALT/SGPT 28 U/L (16-61); Albumin, Serum 2.9 g/dL (3.2-5.0); Alkaline Phosphatase 82 U/L (45-117); Anion Gap 6 (5-15); BUN 33 mg/dL (7-18); BUN/Creat Ratio 21.9 RATIO (10-20); Calcium,Total 8.9 mg/dL (8.5-10.1); Chloride 99 mmol/L (98-107); Creatinine, Serum 1.51 mg/dL (0.70-1.30); EST Glomerular Filtration Rate 49 mL/min (>60); Est Glom Filt Rate - Afr Amer 59 mL/min (>60); Estimated Creatinine Clearance 44.67 ml/min; Glucose 58 mg/dL (74-106); Potassium 4.6 mmol/L (3.5-5.1); Protein, Total 6.9 g/dL (6.4-8.2); Sodium Level 134 mmol/L (136-145); Troponin-I HS (w/2H Reflex) 26 pg/mL (3.0-78.0)
--- NOTE | 2024-04-08 17:30 | CT_ITS ---
STUDY: CT ABDOMEN AND PELVIS WITH CONTRAST REASON FOR EXAM: Male, 69 years old. Diarrhea, rectal mass RADIATION DOSAGE (If Supplied By Facility): CTDIvol = ( 18.14 ) mGy, DLP = ( 1790.46 ) mGycm TECHNIQUE: Transaxial images were obtained from the dome of the diaphragm to the symphysis pubis without oral contrast. IV 100mL Isovue-370 was administered. Sagittal and coronal images were reconstructed. Individualized dose optimization techniques were used for this CT. COMPARISON: December 28, 2022 FINDINGS: The visualized lung bases are unremarkable. There are coronary artery calcifications. Normal liver. Normal gallbladder and extrahepatic biliary system. Normal spleen. Normal pancreas. Normal bilateral adrenal glands. There are at least 3 stones in each kidney measuring up to 0.5 cm . No hydronephrosis. Normal visualized stomach. Normal small intestine. There is wall thickening and mass in the rectum. There are infiltrative changes and lymph nodes in the perirectal space. There is moderate stool in the colon. The appendix is visualized and appears normal. There is diffuse atherosclerotic calcification of the abdominal aorta, without a demonstrated aneurysm. Normal inferior vena cava. Normal retroperitoneum. Normal urinary bladder. There is no free fluid in the abdomen or pelvis. Normal abdominal wall. There are diffuse degenerative changes of the visualized lumbar spine. CT/Abdomen/Pelvis W IV Cont ONLY IMPRESSION: Rectal wall thickening and mass with perirectal lymph nodes consistent with rectal carcinoma. Moderate stool. No obstruction. Bilateral renal stones. No hydronephrosis. Electronically Signed: Reed Delgado MD at 19:44 EST ,
--- NOTE | 2024-04-08 17:30 | CT_ITS ---
STUDY: CTA CHEST REASON FOR EXAM: Male, 69 years old. Dizziness, fall, concern for pe RADIATION DOSAGE (If Supplied By Facility): CTDIvol = ( 18.14 ) mGy, DLP = ( 1790.46 ) mGycm TECHNIQUE: The examination was performed with the intravenous administration of IV 100mL Isovue-370. Post-processing of the angiographic images was performed, with multiplanar reformation and 3D reconstruction. Individualized dose optimization techniques were used for this CT. COMPARISON: CT December 28, 2022 FINDINGS: Normal enhancement of the main pulmonary artery and right and left pulmonary arteries. Normal enhancement of the bilateral peripheral pulmonary arteries. There is no demonstrated pulmonary embolism. There is atherosclerotic calcification of the aortic arch with tortuosity. There is no demonstrated aortic dissection. There are calcifications of the coronary arteries. Normal mediastinum. Normal hilar regions. Normal visualized trachea and bronchi. Stable elevation of the right hemidiaphragm. Normal pulmonary parenchyma. Normal pleura. Normal chest wall structures. There are degenerative changes of thoracic spine. Normal visualized upper abdomen. CT/CTA Chest W/WO Contrast IMPRESSION: CTA chest examination, without a demonstrated pulmonary embolism or arterial dissection. No focal infiltrate or edema. Electronically Signed: Reed Delgado MD at 19:19 EST ,
[2024-04-08 17:31] LABS: D-Dimer Quantitative (DVT/PE) 6.07 FEU/ug/m (0.27-0.49)
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
[2024-04-08 17:50] LABS: CPK Total, Creatine Kinase 1737 U/L (39-308); Magnesium 1.8 mg/dL (1.6-2.6)
[2024-04-08 17:57] LABS: Atypical Lymphocyte 1+ %; Hypersegmented Neutrophils RARE; Lymphocyte 1 % (19-41); Metamyelocyte 1 % (0-1); Monocyte 1 % (0-10); Neutrophil-Segmented 97 % (47-70); Platelet Morphology LARGE; Total Cells Counted 100 (MANUAL DIFF)
[2024-04-08 17:58] LABS: Burr Cells RARE; Platelet Estimate ADEQUATE (ADEQ)
[2024-04-08 17:59] LABS: Scan Smear per Review Criteria MANUAL DIFF
[2024-04-08 18:01] LABS: Absolute Lymphocyte Count 0.25 X10^3/uL (0.83-4.51); Absolute Neutrophil Count 24.1 X10^3/uL (2.0-7.7)
--- NOTE | 2024-04-08 18:11 | ED.RN ---
blood sugar noted to be 58 in the lab results. sandwich, juice and cookies given per ok by Dr. Adams
[2024-04-08 18:19] LABS: BNP,B-Type NATRIURETIC PEPTIDE 87.2 pg/mL (0-100)
--- NOTE | 2024-04-08 18:21 | ED.RN ---
brother Art called per pt request
[2024-04-08] MEDS: Dextrose 10%-Water 250 ML 999 ML IV (18:31)
[2024-04-08] MEDS: 0.9% Normal Saline (1000mL) 1,000 ML 999 ML IV ×2 (18:31→21:35)
[2024-04-08 18:58] LABS: Reflex Troponin-HS? (from REC) Y
[2024-04-08] MEDS: Vancomycin HCl 2,000 MG in 0.9% Normal Saline (500mL Bag) 500 ML 250 MG IV (19:14)
[2024-04-08 20:18] LABS: Troponin-I HS 24 pg/mL (3.0-78.0)
--- NOTE | 2024-04-08 21:11 | PCM.HP.STD ---
[facility] - General General Date of Admission: 04/08/24 Date of Service: 04/08/24 Chief Complaint: Generalized Weakness, Fall and Chronic Diarrhea. HPI Narrative KRYSTA MCLAUGHLIN, is a 69 M with a past medical history of essential hypertension; on losartan, hyperlipidemia, overweight; with BMI of 27.5 this admission, DM-2; of unknown control on glipizide, history of glaucoma; s/p laser trabeculoplasty on timolol drops, history of cataracts; s/p extraction, history of tobacco abuse, OA; with chronic back pain, history of BRBPR and chronic diarrhea for the past year with known rectal adenocarcinoma diagnosed a year ago on colonoscopy by Dr. Ritchie - but patient never followed up because he was scared who now presents to [facility] ER complaining of generalized weakness, fall and chronic diarrhea. Mr. Mclaughlin reports his symptoms began about an hour prior to arrival with the abrupt-onset of dizziness while he was walking out to his mailbox with patient then falling forward and unable to get up so a bystander activated EMS. Upon further questioning he also admitted to feeling generally weak with difficulty getting up off the couch. He admits to a reddish color of his stools with frequent BM's and fecal incontinence with intermittent moderate lower abdominal pain but he denies associated fever, chills, nausea, vomiting, chest pain or dysuria. In the ER he was diagnosed with suspected Sepsis with Septic Shock; with severe hypotension refractory to treatment with fluid boluses requiring Levophed along with Leukocytosis of 24.8K with Left-shift with Chronic Diarrhea in the setting of known and chronically untreated Rectal Adenocarcinoma and Rhabdomyolysis of 1,737 mg/dL present on admission complicated by a highly elevated d-dimer of 6.07 present on admission and Hypoglycemia of 58 mg/dL present on admission suspected to be due to an Adverse Drug Reaction to glipizide and he was then admitted to the ICU for treatment under the Sepsis protocol for a stay that is expected to extend beyond 2 midnights. [facility] Medical History Wears glasses Diabetes Back pain Injury of head and neck Former smoker History of echocardiogram Hypertension Cardiology follow-up encounter Diarrhea Pre-op evaluation Abnormal electrocardiogram Type 2 diabetes mellitus Pure hypercholesterolemia Essential hypertension Home Medications ?Medication ?Instructions ?Recorded ?Last Taken ?Type losartan 50 mg tablet 50 mg PO DAILY #1 TAB 10/13/20 Unknown Rx glipizide 5 mg tablet, extended 5 mg PO DAILY 04/08/24 Unknown History release 24 hr timolol maleate 0.5 % eye drops 1 drp ophthalmic (eye) BID 04/08/24 Unknown History Allergy/AdvReac Type Severity Reaction Status Date / Time No Known Allergies Allergy Verified 04/08/24 16:14 Family History Mother Diabetes Surgical History History of bilateral cataract extraction Status post laser trabeculoplasty of eye Social History Smoking Status: Former smoker alcohol intake: never substance use type: does not use caffeine: No ROS ROS Narrative Review of Systems: Constitutional: Patient admits to lightheadedness and generalized weakness but he denies fever or chills. Eyes: Patient denies changes in vision or discharge from eyes. ENT: Patient denies runny nose, sore throat or ear pain. Resp: Patient denies SOB or cough. CV: Patient admits to lightheadedness with fall and inability to get up as per HPI. GI: Patient admits to reddish discoloration of stools with chronic diarrhea and fecal incontinence with intermittent lower abdominal pain as per HPI. : Patient denies dysuria or hematuria. MSK: Patient denies arthralgias or myalgias. Skin: Patient denies rash, abscess or jaundice. Psych: Patient denies symptoms of uncontrolled depression or anxiety. Neuro: Patient admits to lightheadedness with fall but he denies headache or paresthesias. Allergy: Patient denies lip swelling, tongue swelling or urticaria. Hematology: Patient admits to reddish discoloration of his stools. Endocrinology: Patient denies polyuria, polydipsia or polyphagia. 14 point ROS otherwise negative except for positives noted above in HPI. Vital Signs Vital Signs Vital Signs: 04/08/24 16:14 04/08/24 16:15 04/08/24 16:24 Temperature 98.2 F 98.2 F Temperature Source Oral Oral Pulse Rate 75 72 Respiratory Rate 18 16 Respiratory Effort Normal Non-Labored Respiratory Depth Normal Respiratory Pattern Normal Blood Pressure 99/40 L 99/40 L Blood Pressure Mean 59 59 Pulse Ox 95 95 Oxygen Delivery Method Room Air Room Air Room Air 04/08/24 17:20 04/08/24 17:24 04/08/24 17:30 Temperature 98.5 F Temperature Source Oral Pulse Rate 74 79 77 Respiratory Rate 13 16 18 Respiratory Effort Respiratory Depth Respiratory Pattern Blood Pressure 93/46 L Blood Pressure Mean 61 Pulse Ox 96 97 96 Oxygen Delivery Method Room Air 04/08/24 17:31 04/08/24 17:45 04/08/24 17:47 Temperature Temperature Source Pulse Rate 77 81 Respiratory Rate 16 19 H Respiratory Effort Respiratory Depth Respiratory Pattern Blood Pressure 113/35 L 114/77 Blood Pressure Mean 55 86 Pulse Ox 96 Oxygen Delivery Method 04/08/24 18:00 04/08/24 18:00 04/08/24 18:15 Temperature 98.4 F Temperature Source Oral Pulse Rate 81 78 Respiratory Rate 19 H 26 H Respiratory Effort Respiratory Depth Respiratory Pattern Blood Pressure 105/38 L 105/38 L 107/72 Blood Pressure Mean 60 56 83 Pulse Ox 98 96 Oxygen Delivery Method Room Air 04/08/24 18:30 04/08/24 18:45 04/08/24 19:00 Temperature Temperature Source Pulse Rate 81 82 Respiratory Rate 26 H 23 H 15 Respiratory Effort Respiratory Depth Respiratory Pattern Blood Pressure 127/44 H 112/52 L 89/40 L Blood Pressure Mean 68 65 47 Pulse Ox 97 98 98 Oxygen Delivery Method 04/08/24 19:15 04/08/24 19:16 04/08/24 20:17 Temperature Temperature Source Pulse Rate 83 73 Respiratory Rate 48 H 26 H 18 Respiratory Effort Respiratory Depth Respiratory Pattern Blood Pressure 100/19 L 106/81 H 86/49 L Blood Pressure Mean 41 90 61 Pulse Ox 97 97 Oxygen Delivery Method Room Air Weight Weight: 180 lb 8.937 oz Body Mass Index (BMI) 27.4 Physical Exam Const alert, oriented x3, no apparent distress and average body habitus Constitutional Narrative: Patient appears anxious and acutely ill. General Appearance: cooperative HEENT normocephalic, head/scalp atraumatic, hearing grossly normal bilaterally and moist oral mucous membranes Eyes PERRL and EOMs intact bilaterally Neck no lymphadenopathy and supple Resp normal respiratory effort, no retractions, no use of accessory muscles and clear to auscultation bilaterally Cardio regular rate and regular rhythm GI normal to inspection, nondistended, normoactive bowel sounds, soft to palpation, non-tender and non-distended Extremity normal to inspection, full ROM and no clubbing, cyanosis or edema Skin Skin Narrative: Patient has no evidence of rash, abscess or jaundice. Neuro oriented x3, CN's II-XII intact bilaterally, moves all extremities and no focal motor deficits Sensorium / Orientation: awake, alert, oriented to person, oriented to place and oriented to time Speech: speech normal Psych Mood & Affect: anxious Results Medical Records Data Attestation: I reviewed the patient's medical records Lab / Micro Data Attestation: I reviewed the patient's lab results. 04/08/24 16:50 04/08/24 16:50 Labs: Laboratory Results - last 24 hr 04/08/24 16:50: WBC 24.8 H, RBC 4.04 L, Hgb 11.8 L, Hct 35.3 L, MCV 87.4, MCH 29.2, MCHC 33.4, RDW Std Deviation 42.9, RDW Coeff of Mariella 13.4, Plt Count 227, MPV 9.6, Immature Gran % (Auto) [employer]P [employer], Neut % (Auto) PULP MILL OPERATOR, Lymph % (Auto) PULP MILL OPERATOR, [place]berry % (Auto) PULP MILL OPERATOR, Eos % (Auto) PULP MILL OPERATOR, Baso % (Auto) P[employer] MILL OPERATOR, Absolute Neuts (auto) 24.1 H, Absolute Lymphs (auto) 0.25 L, Total Counted 100, Neutrophils % (Manual) 97 H, Lymphocytes % (Manual) 1 L, Monocytes % (Manual) 1, Metamyelocytes % 1, Nucleated RBC % 0, Diff Path Review May foll, Hypersegmented Neuts RARE H, Atypical Lymphocytes 1+, Platelet Estimate ADEQUATE, Plt Morphology Comment LARGE, Sofia Cells RARE, D-Dimer Quant (PE/DVT) 6.07 H*, Sodium 134 L, Potassium 4.6, Chloride 99, Carbon Dioxide 28.0, Anion Gap 6, BUN 33 H, Creatinine 1.51 H, Estim Creat Clear Calc 44.67, Est GFR (MDRD) Af Amer 59 L, Est GFR (MDRD) Non-Af 49 L, BUN/Creatinine Ratio 21.9 H, Glucose 58 L, Lactic Acid 1.7, Calcium 8.9, Magnesium 1.8, Total Bilirubin 1.00, AST 68 H, ALT 28, Alkaline Phosphatase 82, Total Creatine Kinase 1737 H, Troponin I High Sens 26, B-Natriuretic Peptide 87.2, Total Protein 6.9, Albumin 2.9 L, Globulin 4.0, Albumin/Globulin Ratio 0.7 L 04/08/24 19:43: Troponin I High Sens 24 Micro: Microbiology 04/08/24 17:58 Mucosa - Nose SARS-CoV-2, Influenza & RSV (PCR) - Final Imaging Radiology Impression Brain CT 04/08/24 17:01 IMPRESSION: Chronic involutional changes of the brain. Electronically Signed: Reed Delgado MD at 19:32 EST Reading Location ID and State: [facility] / [place] , Service support , Cervical Spine CT 04/08/24 17:01 IMPRESSION: Multilevel degenerative changes, as described above. Electronically Signed: Reed Delgado MD at 19:48 EST Reading Location ID and State: [address] [place] [address] , Service support , Abdomen/Pelvis CT 04/08/24 17:30 IMPRESSION: Rectal wall thickening and mass with perirectal lymph nodes consistent with rectal carcinoma. Moderate stool. No obstruction. Bilateral renal stones. No hydronephrosis. Electronically Signed: Reed Delgado MD at 19:44 EST Reading Location ID and State: [facility] / [place] , Service support , Chest CTA 04/08/24 17:30 IMPRESSION: CTA chest examination, without a demonstrated pulmonary embolism or arterial dissection. No focal infiltrate or edema. Electronically Signed: Reed Delgado MD at 19:19 EST , Assessment & Plan Assessment/Plan (1) Sepsis: QUALIFIERS: Sepsis type: sepsis due to unspecified organism Sepsis acute organ dysfunction status: with acute organ dysfunction Severe sepsis shock status: with septic shock Severe sepsis acute organ dysfunction type: unspecified Qualified Code(s): A41.9 - Sepsis, unspecified organism; R65.21 - Severe sepsis with septic shock (2) Diarrhea: QUALIFIERS: Diarrhea type: unspecified type Qualified Code(s): R19.7 - Diarrhea, unspecified (3) Adenocarcinoma: (4) Rectal mass: (5) Rhabdomyolysis: QUALIFIERS: Rhabdomyolysis type: traumatic Encounter type: initial encounter Qualified Code(s): T79.6XXA - Traumatic ischemia of muscle, initial encounter (6) Hypoglycemia: (7) Overweight (BMI 25.0-29.9): (8) D-dimer, elevated: PLAN: Plan 1. Sepsis with Septic Shock; with severe hypotension refractory to treatment with fluid boluses requiring Levophed along with Leukocytosis of 24.8K with Left-shift with Chronic Diarrhea in the setting of known and chronically untreated Rectal Adenocarcinoma - Admit to ICU for treatment under the Sepsis protocol with Levophed drip to keep MAP > 65 mmHg with PICC ordered in AM. Continue IV Vancomycin and IV Zosyn begun in the ER and await culture and sensitivity data. Give Tylenol prn for pain or fever. Give IV Zofran prn nausea. Keep NPO until surgical consultation. Finally, we will consult Dr. Ritchie of general surgery to see this patient on-rounds in the AM for further recommendations with help appreciated in advance. 2. Rhabdomyolysis of 1,737 mg/dL present on admission after recent Fall complicating #1 - Aggressively volume resuscitate and recheck CPK in AM to follow trend. 3. Hypoglycemia of 58 mg/dL present on admission suspected to be due to an Adverse Drug Reaction to glipizide compounding #1 & #2 in the setting of known DM-2 - Give D5 NS @ 125 cc/hr to prevent hypoglycemia. Check HgA1c to assess quality of diabetic control. Keep NPO for now. Check FSBS q. 6 hours. 4. Overweight; with BMI of 27.5 this admission adding to the medical complexity of #1 - #3 - Weight loss will be recommended. Check TSH. This complicates his case and may hamper recovery. 5. Elevated d-dimer of 6.07 present on admission - Check LE dopplers given heightened possibility of paraneoplastic DVT. 6. Essential hypertension; on losartan - Hold scheduled antihypertensives until infection outlined in #1 has been neutralized. 7. Hyperlipidemia - Hold statin for now and check Lipid Profile. 8. History of glaucoma; s/p laser trabeculoplasty on timolol drops - Resume timolol drops as previous. 9. History of cataracts; s/p extraction - Noted. 10. History of tobacco abuse - Tobacco Cessation was strongly encouraged. 11. OA; with chronic back pain - Stable. 12. History of BRBPR - Noted with patient denying recent obvious gross bleeding. 13. DVT prophylaxis - Lovenox 30 mg sq daily plus SCD's. Stop LMWH if bleeding ensues. Total time: Approximately (but not less than) 75 minutes. Sepsis Attestation Sepsis Alert: Yes Sepsis Attestation: Agree w/Sepsis Date exam was performed: 04/08/24 Time exam was performed: 23:30 Possible Source of Sepsis: GI tract/intra-abdominal Sepsis Organ Dysfunction Criteria Present: SBP < 90 mmHg or MAP < 65 mmHg and SBP decrease of more than 40 mmHg Fluid Resuscitation Fluid resuscitation indicated?: Yes Fluid Resuscitation ordered: 30 ml/kg fluid bolus ordered Amount of fluid ordered: 2 Sepsis Note Date exam was performed: 04/09/24 Time exam was performed: 03:30 Sepsis Attestation: Sepsis re-evaluation was performed Response to fluids: Non Fluid responsive hypotension and Vasopressors started Charges/Coding Visit Charges Inpatient E&M: 02134 Init Hosp L3
[2024-04-08 21:34] LABS: Bacteria 0 SEEN /hpf (None Seen); Mucous, Urine 0 SEEN /hpf (<or=2+); Squamous Epithelial Cells - UA 0 SEEN /hpf (0-5); White Blood Cells 0 SEEN /hpf (0-5)
[2024-04-08] MEDS: Piperacil/Tazobactam 3.375 GM in 0.9% Normal Saline (50mL MB+) 50 ML IV (21:35)
[2024-04-08 22:03] LABS: Color, Urine Yellow (Yellow); Glucose, Dipstick Normal (Normal); Ketone-Dipstick Negative (Negative); Leukocyte Esterase-Dipstick Negative /ul (Negative); Nitrite-Dipstick Negative (Negative); Occult Blood-Urine 150 /ul (Negative); Protein-Dipstick 15 mg/dl (Negative); Urine Bilirubin Dipstick Negative (Negative); Urine Clarity Clear (Clear); Urine Urobilinogen Normal (Normal)
[2024-04-08 22:09] LABS: Red Blood Cells-Urine 0-5 SEEN /hpf (0-5)
[2024-04-08 22:53] LABS: Hemoglobin A1c 5.8 % (3.8-5.6)
[2024-04-08] MEDS: Dextrose 5%/0.9% NaCl 1,000 ML 125 ML IV (23:00)
[2024-04-08] MEDS: Pantoprazole Sodium 40 MG in 0.9% Normal Saline (100mL MB+) 100 ML 330 MG IV (23:22)
[2024-04-08] MEDS: Timolol 0.5% 5ML OPTH.BTL 1 DRP OPHTHALMIC (23:23)
[2024-04-08] MEDS: Lactobacillis Acidophilus 1 CAP PO (23:23)
--- NOTE | 2024-04-08 23:41 | PCM.RX.CS ---
Consult Antibiotic Management Pharmacy has been consulted to manage selected antibiotic: Vancomycin Type of Intervention Type of Consult: New start Suspected Infection Suspected Infection: Sepsis Labs Labs: Sodium 134 mmol/L (136-145) L 04/08/24 16:50 Potassium 4.6 mmol/L (3.5-5.1) 04/08/24 16:50 Chloride 99 mmol/L (98-107) 04/08/24 16:50 Carbon Dioxide 28.0 mmol/L (21.0-32.0) 04/08/24 16:50 Anion Gap 6 (5-15) 04/08/24 16:50 BUN 33 mg/dL (7-18) H 04/08/24 16:50 Creatinine 1.51 mg/dL (0.70-1.30) H 04/08/24 16:50 Est GFR (MDRD) Af Amer 59 mL/min (>60) L 04/08/24 16:50 Est GFR (MDRD) Non-Af 49 mL/min (>60) L 04/08/24 16:50 BUN/Creatinine Ratio 21.9 RATIO (10-20) H 04/08/24 16:50 Glucose 58 mg/dL (74-106) L 04/08/24 16:50 Microbiology Microbiology: Microbiology 04/08/24 22:12 Stool Stool Lactoferrin - Final 04/08/24 17:58 Mucosa - Nose SARS-CoV-2, Influenza & RSV (PCR) - Final Dosing Weight Weight used for dosin kg Estimated Creatinine Clearance Estimated Creatinine Clearance: 45 Goal Trough Goal Trough: 15-20 mcg/mL Pharmacy Plan for Drug Dosing Pharmacy Plan for Drug Dosing: Pharmacy Service will continue to monitor and adjust dosing as required. Follow-Up Labs Follow-Up Labs: Trough: Vancomycin Date/Time Labs Ordered Labs to be done on [date and time ordered]: 04/10/24 @[id number]
[2024-04-08 23:48] LABS: Bedside Glucose 60 mg/dL (74-106)
[2024-04-08 23:48] LABS: Bedside Glucose 81 mg/dL (74-106)
[2024-04-09] VITALS (52 sets, daily range): BP systolic 70–176; BP diastolic 34–123; PULSE 55–78; RESP 13–20; TEMP 36.4–36.8; O2SAT 94–99; BMI 27.3
[2024-04-09] MEDS: 0.9% Normal Saline (1000mL) 1,000 ML 999 ML IV (00:15)
[2024-04-09] MEDS: Norepinephrine 8 MG in 0.9% Normal Saline (250mL Bag) 242 ML 9.4 MG CONT INF (01:45)
[2024-04-09] MEDS: TITRATION PARAMETER CHANGE 1 EACH IV (02:57)
[2024-04-09] MEDS: Piperacil/Tazobactam 3.375 GM in 0.9% Normal Saline (50mL MB+) 50 ML IV ×3 (05:10→20:40)
[2024-04-09] MEDS: Vancomycin IV 500 MG/100 ML BAG 100 MG IV ×2 (06:07→17:58)
[2024-04-09] MEDS: 0.9% Saline Lock 10 ML Syringe IV (06:13)
[2024-04-09 06:52] LABS: CPK Total, Creatine Kinase 1410 U/L (39-308)
[2024-04-09] MEDS: Timolol 0.5% 5ML OPTH.BTL 1 DRP OPHTHALMIC ×2 (07:43→20:40)
[2024-04-09] MEDS: Lactobacillis Acidophilus 1 CAP PO ×4 (07:43→20:41)
[2024-04-09] MEDS: Enoxaparin 30 MG/0.3 ML Syringe SC (07:43)
[2024-04-09] MEDS: Dextrose 5%/0.9% NaCl 1,000 ML 125 ML IV (07:50)
--- NOTE | 2024-04-09 07:53 | VDLE_ITS ---
Reason For Study: Elevated D Dimer RIGHT LEFT GSV is normal. GSV is normal. CFV is compressible, spontaneous, phasic, CFV is compressible, spontaneous, phasic, competent and demonstrates normal competent, and demonstrates normal augmentation. augmentation. FV is compressible, spontaneous, phasic, FV is compressible, spontaneous, phasic, competent and demonstrates normal competent and demonstrates normal augmentation. augmentation. POP V is compressible, spontaneous, phasic, POP V is compressible, spontaneous, phasic, competent and demonstrates normal competent and demonstrates normal augmentation. augmentation. T/P Trunk is compressible. T/P Trunk is compressible. PTV is compressible. PTV is compressible. RT PerV is compressible. LT PerV is compressible. Procedure This is a venous duplex using B-mode, color flow and spectral Doppler. Exam performed portable in ICU/CCU. The exam was diagnostic. A preliminary report was called and/or faxed to Dr. Willis. VL/Venous Duplex US - Fernando Extrem Interpretation Summary Deep veins of the lower extremities are bilaterally patent and compressible seg mentally. There is no evidence of deep vein thrombosis on either side. Valvular competence appears in tact within the proximal deep venous systems bilaterally. The great saphenous veins appear bila terally patent and compressible segmentally. Ordering Physician: Stephan Aleman Referring Physician: Carrie Broussard Performed By: Hugh Burns, RVT
--- NOTE | 2024-04-09 08:09 | EX.PCM.CONCC ---
Assessment & Plan Assessment/Plan (1) Hypotension: (2) JEN (acute kidney injury): PLAN: Plan RECOMMENDATIONS: 1. Continue gentle IV fluid hydration. Wean Levophed off. 2. If culture data remains negative over the next 24 to 48 hours, antimicrobials can be discontinued. 3. Continue appropriate DVT prophylaxis. 4. Encourage incentive spirometer use and mobilize patient as tolerated. IMPRESSIONS: 1. Hypotension/dizziness/lightheadedness The patient presented with generalized weakness along with dizziness and lightheadedness, in the setting of hypoglycemia and hypotension. While sepsis was a consideration, no discernible source of infection has yet to be identified. Rather, I think it is far more feasible that the patient was intravascular volume depleted, especially in light of his history of chronic diarrhea over the course of the last year. Nevertheless, antimicrobials have been initiated. It is reasonable to continue for the next 24 hours. If cultures are negative, antibiotics can be discontinued from my perspective. The patient is nearly weaned off of Levophed in light of ongoing volume resuscitation. 2. Acute kidney injury Most likely prerenal in etiology, as the patient's creatinine has normalized with volume expansion. Continue to monitor urine output. No current indication for renal replacement therapy. The patient's CK elevation was not consistent with rhabdomyolysis. 3. History of hypertension/hyperlipidemia/diabetes mellitus Complicates care, management, recovery and prognosis. Continue to hold home medications for now. This note was generated with [employer] dictation software. It may contain incorrect words, spelling, and punctuation that were not noted in checking the note before signing. HPI Consult Data Date of Consult: 04/09/24 HPI Narrative Reason for Consultation: Sepsis HPI Narrative: The patient is a 69-year-old male, with a history as outlined below, who presented to the emergency department on April 08 with generalized weakness, dizziness and fall. The patient reported that he was previously diagnosed with rectal CA, but elected not to pursue treatment. He does endorse the presence of chronic diarrhea for approximately 1 years duration. His medical history is also significant for diabetes mellitus and hypertension. On presentation to the emergency department, the patient was documented to be afebrile with a presenting blood pressure of 99/40 mmHg. Laboratory evaluation revealed a white blood cell count of 25,000. D-dimer was elevated at 6.07. Chemistry profile was notable for a creatinine of 1.5. Lactate was within normal limits. CK level was elevated at 1737. Troponin and BNP were unremarkable. TSH was within normal limits. Urine analysis was unremarkable. CT head revealed chronic involutional changes of the brain. CT abdomen/pelvis demonstrated rectal wall thickening with a mass along with perirectal lymph nodes consistent with rectal carcinoma. CTA chest was unremarkable, without any evidence of pulmonary embolism or infiltrate. The patient was ordered to receive supplemental IV fluids and was placed on antimicrobials over concerns for sepsis. He was ultimately transferred to the medical intensive care unit, where he was placed on low-dose Levophed to maintain hemodynamic stability. [facility] Medical History Wears glasses Diabetes Back pain Injury of head and neck Former smoker History of echocardiogram Hypertension Cardiology follow-up encounter Diarrhea Pre-op evaluation Abnormal electrocardiogram Type 2 diabetes mellitus Pure hypercholesterolemia Essential hypertension Home Medications ?Medication ?Instructions ?Recorded ?Last Taken ?Type losartan 50 mg tablet 50 mg PO DAILY #1 TAB 10/13/20 Unknown Rx glipizide 5 mg tablet, extended 5 mg PO DAILY 04/08/24 Unknown History release 24 hr timolol maleate 0.5 % eye drops 1 drp ophthalmic (eye) BID 04/08/24 Unknown History Allergy/AdvReac Type Severity Reaction Status Date / Time No Known Allergies Allergy Verified 04/08/24 16:14 Family History Mother Diabetes Surgical History History of bilateral cataract extraction Status post laser trabeculoplasty of eye Social History Smoking Status: Former smoker alcohol intake: never substance use type: does not use caffeine: No ROS ROS Narrative 10 systems were reviewed with pertinent positives as noted in the HPI above. Physical Exam Const alert and no apparent distress General Appearance: cooperative HEENT normocephalic and head/scalp atraumatic Eyes PERRL, EOMs intact bilaterally and conjunctivae normal Neck supple General: trachea midline Chest inspection of chest normal Resp normal respiratory effort Auscultation: Negative for rales, rhonchi or wheezes Cardio regular rate and regular rhythm GI normal to inspection, nondistended, normoactive bowel sounds Extremity no clubbing, cyanosis or edema Skin no rashes or lesions noted Neuro CN's II-XII intact bilaterally and moves all extremities Neuro Narrative: Upper extremity resting tremor Psych Mood & Affect: flat affect Lab / Micro Data 04/08/24 16:50 04/09/24 06:10 Labs: Laboratory Results - last 24 hr 04/08/24 16:50: WBC 24.8 H, RBC 4.04 L, Hgb 11.8 L, Hct 35.3 L, MCV 87.4, MCH 29.2, MCHC 33.4, RDW Std Deviation 42.9, RDW Coeff of Mariella 13.4, Plt Count 227, MPV 9.6, Immature Gran % (Auto) [employer] STORE MANAGER, Neut % (Auto) [employer] STORE MANAGER, Lymph % (Auto) JEW[employer] STORE MANAGER, [place] % (Auto) JEW[employer] STORE MANAGER, Eos % (Auto) J[employer] STORE MANAGER, Baso % (Auto) [employer] STORE MA[employer]GER, Absolute Neuts (auto) 24.1 H, Absolute Lymphs (auto) 0.25 L, Total Counted 100, Neutrophils % (Manual) 97 H, Lymphocytes % (Manual) 1 L, Monocytes % (Manual) 1, Metamyelocytes % 1, Nucleated RBC % 0, Diff Path Review May foll, Hypersegmented Neuts RARE H, Atypical Lymphocytes 1+, Platelet Estimate ADEQUATE, Plt Morphology Comment LARGE, [place] Cells RARE, D-Dimer Quant (PE/DVT) 6.07 H*, Sodium 134 L, Potassium 4.6, Chloride 99, Carbon Dioxide 28.0, Anion Gap 6, BUN 33 H, Creatinine 1.51 H, Estim Creat Clear Calc 44.67, Est GFR (MDRD) Af Amer 59 L, Est GFR (MDRD) Non-Af 49 L, BUN/Creatinine Ratio 21.9 H, Glucose 58 L, Lactic Acid 1.7, Calcium 8.9, Magnesium 1.8, Total Bilirubin 1.00, AST 68 H, ALT 28, Alkaline Phosphatase 82, Total Creatine Kinase 1737 H, Troponin I High Sens 26, B-Natriuretic Peptide 87.2, Total Protein 6.9, Albumin 2.9 L, Globulin 4.0, Albumin/Globulin Ratio 0.7 L 04/08/24 19:43: Troponin I High Sens 24 04/08/24 21:30: Urine Color Yellow, Urine Clarity Clear, Urine pH 6.0, Ur Specific [place] 1.010, Urine Protein 15 H, Urine Glucose (UA) Normal, Urine Ketones Negative, Urine Occult Blood 150 H, Urine Nitrite Negative, Urine Bilirubin Negative, Urine Urobilinogen Normal, Ur Leukocyte Esterase Negative, Urine RBC 0-5 SEEN, Urine WBC 0 SEEN, Ur Squamous Epith Cells 0 SEEN, Urine Bacteria 0 SEEN, Urine Mucus 0 SEEN 04/08/24 22:15: Hemoglobin A1c 5.8 H, Lactic Acid 1.0, TSH 1.470 04/08/24 22:46: POC Glucose 60 L 04/08/24 23:31: POC Glucose 81 04/09/24 06:10: Total Creatine Kinase 1410 H Micro: Microbiology 04/08/24 22:12 Stool Stool Lactoferrin - Final 04/08/24 22:12 Stool Clostridioides difficile (PCR) - Final 04/08/24 17:58 Mucosa - Nose SARS-CoV-2, Influenza & RSV (PCR) - Final Rhythm Strip Rhythm Strip: Sinus Rhythm Rate: 75 Ectopy: None Imaging Radiology Impression Brain CT 04/08/24 17:01 IMPRESSION: Chronic involutional changes of the brain. Electronically Signed: Reed Delgado MD at 19:32 EST Reading Location ID and State: [facility] / [place] , Service support , Cervical Spine CT 04/08/24 17:01 IMPRESSION: Multilevel degenerative changes, as described above. Electronically Signed: Reed Delgado MD at 19:48 EST Reading Location ID and State: [facility] / [place] , Service support , Abdomen/Pelvis CT 04/08/24 17:30 IMPRESSION: Rectal wall thickening and mass with perirectal lymph nodes consistent with rectal carcinoma. Moderate stool. No obstruction. Bilateral renal stones. No hydronephrosis. Electronically Signed: Reed Delgado MD at 19:44 EST Reading Location ID and State: [facility] / [place] , Service support , Chest CTA 04/08/24 17:30 IMPRESSION: CTA chest examination, without a demonstrated pulmonary embolism or arterial dissection. No focal infiltrate or edema. Electronically Signed: Reed Delgado MD at 19:19 EST , Charges/Coding Visit Charges Inpatient E&M: 14585 Init Hosp L3
[2024-04-09 08:39] LABS: Anion Gap 4 (5-15); BUN 23 mg/dL (7-18); BUN/Creat Ratio 21.3 RATIO (10-20); Calcium,Total 7.9 mg/dL (8.5-10.1); Chloride 109 mmol/L (98-107); Creatinine, Serum 1.08 mg/dL (0.70-1.30); EST Glomerular Filtration Rate 72 mL/min (>60); Est Glom Filt Rate - Afr Amer 87 mL/min (>60); Estimated Creatinine Clearance 62.45 ml/min; Glucose 108 mg/dL (74-106); Potassium 3.5 mmol/L (3.5-5.1); Sodium Level 137 mmol/L (136-145)
--- NOTE | 2024-04-09 09:15 | CASEMGMT ---
JERAMIE WAY Assessment Face to Face with patient for initial transition planning/care coordination assessment. RN CM introduced self and role at [facility], pt voices understanding. Pt is A&Ox4 and is resting comfortably in bed and is calm. Care providers, pharmacy, and demographics verified. Admitting dx: Sepsis, Rhabdo, Fall, Hypoglycemia LACE Strata: 2 PCP: Carrie Broussard Specialists: Denies Preferred Pharmacy: [facility] Insurance: AARP MCR ADV Prescription Benefit: Yes LNOK: Art (Brother), Rajinder (Brother) Living Arrangements: Pt lives alone on the second floor of an apartment complex with a flight of steps to manage with no elevator. Reports there are handrails for the steps. ADLs/IADLs: Pt is currently weak and requiring assistance. However, pt is ind at baseline. Pt fell outside of his home prior to arrival. Medical alert information provided. Transportation: Self, brothers DME: Functioning BGM with sufficient supplies. BP Monitor. Denies further uses at this time. CM to follow. HHC/SNF: Denies history or needs. 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 Anticipate SNF vs HH due to the pt current weakness and living at home alone. There is no 6-Click score currently. PT and OT are ordered and evaluations are pending. Pt states that he would prefer to return home at time of DC but may stay open to the idea of further therapy at a SNF if warranted. Pt states that it is too early to tell what he will need or want at time of DC. Care Management to follow. Pt denies further questions or concerns at this time. Barry Benitez RN, CM
--- NOTE | 2024-04-09 09:21 | CON.PCM.SX_ITS ---
Assessment & Plan Assessment/Plan (1) Adenocarcinoma of rectum: PLAN: Plan Did discuss with patient that it is located she is under treatment for the rectal cancer however I want to make sure he is informed that doing so would likely result in obstruction in the future as well as the need for a colostomy as well. Patient states he was scared about getting sick on chemotherapy. Did discuss with patient that he would need to at least meet with oncology we will plan to consult them to meet with him. Did also talk with patient's brother Von?heart states that Krysta has been refusing treatment. Discussed with the patient that he can make which ever informed decision he would like as long as I would like him to have an informed decision and actually meet with oncology prior to making this decision. Patient did state that he did not have any pain which is why I think patient is less concerned he is not aware of how rectal cancer progresses and that initially it is painless until there is an obstruction. Did try to convey this to the patient. Patient will likely need an MRI of his pelvis prior to starting any treatment. As this was recommended back in December 2022 by the colorectal surgeon and never completed. No plans for any acute surgical intervention but will be available for port placement as an outpatient --please call with questions. Lindsey Ritchie M.D. Pager: [phone] [facility] [address] [place] [address], [facility], [address] [place] [address] Office: [phone] HPI Consult Data Date of Consult: 04/09/24 HPI Narrative HPI Narrative: KRYSTA BRUNSON, is a 69 M who presents to the ER due to sepsis, hypotension, rhabdomyolysis. Patient does have rectal adenocarcinoma diagnosed in December 2022. Patient did meet with the colorectal surgeon Karrie however he never met with oncology even other referral was placed. Patient stated that he was scared. Patient did allow me to talk to his brother Von as well who states that patient has been refusing treatment of this. When talking with the patient he states that he is not having any pain so I think that makes him less concern currently. Patient was initially on pressors which have been decreasing and likely will be able to get removed. Patient states that he fell in a parking lot and his neighbor was able to help him up. And he has been having more issues falling recently. [facility] Medical History Wears glasses Diabetes Back pain Injury of head and neck Former smoker History of echocardiogram Hypertension Cardiology follow-up encounter Diarrhea Pre-op evaluation Abnormal electrocardiogram Type 2 diabetes mellitus Pure hypercholesterolemia Essential hypertension Home Medications ?Medication ?Instructions ?Recorded ?Last Taken ?Type losartan 50 mg tablet 50 mg PO DAILY #1 TAB 10/13/20 Unknown Rx glipizide 5 mg tablet, extended 5 mg PO DAILY 04/08/24 Unknown History release 24 hr timolol maleate 0.5 % eye drops 1 drp ophthalmic (eye) BID 04/08/24 Unknown History Allergy/AdvReac Type Severity Reaction Status Date / Time No Known Allergies Allergy Verified 04/08/24 16:14 Family History Mother Diabetes Surgical History History of bilateral cataract extraction Status post laser trabeculoplasty of eye Social History Smoking Status: Former smoker alcohol intake: never substance use type: does not use caffeine: No ROS Constitutional Constitutional: Denies anorexia ENT HEENT: Denies dysphagia Cardiovascular Cardiovascular: Denies chest pain Respiratory/Chest Respiratory/Chest: Denies cough Gastrointestinal Gastrointestinal: Reports rectal bleeding; Denies abdominal pain, nausea or vomiting Genitourinary Genitourinary: Denies dysuria Musculoskeletal Musculoskeletal: Reports muscle weakness Integumentary Integumentary: Denies jaundice Physical Exam Const alert, oriented x3 and no apparent distress HEENT normocephalic and head/scalp atraumatic Resp normal respiratory effort Cardio regular rate GI soft to palpation and non-tender; Negative for non-distended Palpation: Negative for guarding Extremity no clubbing, cyanosis or edema Skin no jaundice Neuro CN's II-XII intact bilaterally Psych mental status grossly normal Lab / Micro Data 04/08/24 16:50 04/09/24 06:10 Labs: Laboratory Results - last 24 hr 04/08/24 16:50: WBC 24.8 H, RBC 4.04 L, Hgb 11.8 L, Hct 35.3 L, MCV 87.4, MCH 29.2, MCHC 33.4, RDW Std Deviation 42.9, RDW Coeff of Mariella 13.4, Plt Count 227, MPV 9.6, Immature Gran % (Auto) PRINTED CIRCUIT BOARDS STRIPPER ETCHER, Neut % (Auto) PRINTED CIRCUIT BOARDS STRIPPER ETCHER, Lymph % (Auto) PRINTED CIRCUIT BOARDS STRIPPER ETCHER, [place] % (Auto) PRINTED CIRCUIT BOARDS STRIPPER ETCHER, Eos % (Auto) PRINTED CIRCUIT BOARDS STRIPPER ETCHER, Baso % (Auto) PRINTED CIRCUIT BOARDS STRIPPER ETCHER, Absolute Neuts (auto) 24.1 H, A bsolute Lymphs (auto) 0.25 L, Total Counted 100, Neutrophils % (Manual) 97 H, L ymphocytes % (Manual) 1 L, Monocytes % (Manual) 1, Metamyelocytes % 1, Nucleated RBC % 0, Diff Path Review May foll, Hypersegmented Neuts RARE H, Atypical Lymphocytes 1+, Platelet Estimate ADEQUATE, Plt Morphology Comment LARGE, [place] Cells RARE, D-Dimer Quant (PE/DVT) 6.07 H*, Sodium 134 L, Potassium 4.6, Chloride 99, Carbon Dioxide 28.0, Anion Gap 6, BUN 33 H, Creatinine 1.51 H, Estim Creat Clear Calc 44.67, Est GFR (MDRD) Af Amer 59 L, Est GFR (MDRD) Non-Af 49 L, BUN/Creatinine Ratio 21.9 H, Glucose 58 L, Lactic Acid 1.7, Calcium 8.9, Magnesium 1.8, Total Bilirubin 1.00, AST 68 H, ALT 28, Alkaline Phosphatase 82, Total Creatine Kinase 1737 H, Troponin I High Sens 26, B-Natriuretic Peptide 87.2, Total Protein 6.9, Albumin 2.9 L, Globulin 4.0, Albumin/Globulin Ratio 0.7 L 04/08/24 19:43: Troponin I High Sens 24 04/08/24 21:30: Urine Color Yellow, Urine Clarity Clear, Urine pH 6.0, Ur Specific [place] 1.010, Urine Protein 15 H, Urine Glucose (UA) Normal, Urine Ketones Negative, Urine Occult Blood 150 H, Urine Nitrite Negative, Urine Bilirubin Negative, Urine Urobilinogen Normal, Ur Leukocyte Esterase Negative, Urine RBC 0-5 SEEN, Urine WBC 0 SEEN, Ur Squamous Epith Cells 0 SEEN, Urine Bacteria 0 SEEN, Urine Mucus 0 SEEN 04/08/24 22:15: Hemoglobin A1c 5.8 H, Lactic Acid 1.0, TSH 1.470 04/08/24 22:46: POC Glucose 60 L 04/08/24 23:31: POC Glucose 81 04/09/24 06:10: Sodium 137, Potassium 3.5, Chloride 109 H, Carbon Dioxide 24.0, Anion Gap 4 L, BUN 23 H, Creatinine 1.08, Estim Creat Clear Calc 62.45, Est GFR (MDRD) Af Amer 87, Est GFR (MDRD) Non-Af 72, BUN/Creatinine Ratio 21.3 H, G lucose 108 H, Calcium 7.9 L, Total Creatine Kinase 1410 H Micro: Microbiology 04/08/24 22:12 Stool Stool Lactoferrin - Final 04/08/24 22:12 Stool Enteric Bacteriology - Final 04/08/24 22:12 Stool Clostridioides difficile (PCR) - Final 04/08/24 21:30 Urine, Catheterized Urine Culture - Preliminary Culture exhibits no growth. 04/08/24 17:58 Mucosa - Nose SARS-CoV-2, Influenza & RSV (PCR) - Final Rhythm Strip Rhythm Strip: Sinus Rhythm Rate: 75 Ectopy: None Imaging Radiology Impression Brain CT 04/08/24 17:01 IMPRESSION: Chronic involutional changes of the brain. Electronically Signed: Reed Delgado MD at 19:32 EST Reading Location ID and State: [facility] / [place] , Service support , Cervical Spine CT 04/08/24 17:01 IMPRESSION: Multilevel degenerative changes, as described above. Electronically Signed: Reed Delgado MD at 19:48 EST Reading Location ID and State: [facility] / [place] , Service support , Abdomen/Pelvis CT 04/08/24 17:30 IMPRESSION: Rectal wall thickening and mass with perirectal lymph nodes consistent with rectal carcinoma. Moderate stool. No obstruction. Bilateral renal stones. No hydronephrosis. Electronically Signed: Reed Delgado MD at 19:44 EST Reading Location ID and State: [facility] / [place] , Service support , Chest CTA 04/08/24 17:30 IMPRESSION: CTA chest examination, without a demonstrated pulmonary embolism or arterial dissection. No focal infiltrate or edema. Electronically Signed: Reed Delgado MD at 19:19 EST , Charges/Coding Visit Charges Inpatient E&M: 74144 Init Hosp L3
--- NOTE | 2024-04-09 10:11 | PCM.PN.HOSP ---
Reason for Visit Reason for Visit: Diagnoses Sepsis, unspecified organism (04/08/24) Malignant neoplasm of rectum (04/08/24) Malignant (primary) neoplasm, unspecified (04/08/24) Hypoglycemia, unspecified (04/08/24) Overweight (04/08/24) Hypotension, unspecified (04/08/24) Other specified diseases of anus and rectum (04/08/24) Acute kidney failure, unspecified (04/08/24) Diarrhea, unspecified (04/08/24) Severe sepsis with septic shock (04/08/24) Other specified abnormal findings of blood chemistry (04/08/24) Traumatic ischemia of muscle, initial encounter (04/08/24) Objective Data Objective Data Vital Signs: Vital Signs Temp Pulse Resp BP Pulse Ox O2 Del Method 98.2 F 64 19 H 121/60 H 97 Room Air 04/09/24 04:00 04/09/24 07:00 04/09/24 07:00 04/09/24 07:30 04/09/24 07:00 04/09/24 07:00 Oxygen Delivery Method Room Air Weight: 180 lb 12.465 oz Body Mass Index (BMI) 27.3 Intake & Output: Intake and Output for Last 24 Hours 04/07/24 04/08/24 04/09/24 23:59 23:59 23:59 Intake Total 3174.65 / 3174.65 2219.51 / 2219.51 Output Total 1200 / 1200 Balance 3174.65 / 3174.65 1019.51 / 1019.51 Lab / Micro Data 04/08/24 16:50 04/09/24 06:10 Labs: Laboratory Results - last 24 hr 04/08/24 16:50: WBC 24.8 H, RBC 4.04 L, Hgb 11.8 L, Hct 35.3 L, MCV 87.4, MCH 29.2, MCHC 33.4, RDW Std Deviation 42.9, RDW Coeff of Mariella 13.4, Plt Count 227, MPV 9.6, Immature Gran % (Auto) TRANSIT SURVEY WORKER, Neut % (Auto) TRANSIT SURVEY WORKER, Lymph % (Auto) TRANSIT SURVEY WORKER, [place] % (Auto) TRANSIT SURVEY WORKER, Eos % (Auto) TRANSIT SURVEY WORKER, Baso % (Auto) TRANSIT SURVEY WORKER, Absolute Neuts (auto) 24.1 H, Absolute Lymphs (auto) 0.25 L, Total Counted 100, Neutrophils % (Manual) 97 H, Lymphocytes % (Manual) 1 L, Monocytes % (Manual) 1, Metamyelocytes % 1, Nucleated RBC % 0, Diff Path Review May foll, Hypersegmented Neuts RARE H, Atypical Lymphocytes 1+, Platelet Estimate ADEQUATE, Plt Morphology Comment LARGE, [place] Cells RARE, D-Dimer Quant (PE/DVT) 6.07 H*, Sodium 134 L, Potassium 4.6, Chloride 99, Carbon Dioxide 28.0, Anion Gap 6, BUN 33 H, Creatinine 1.51 H, Estim Creat Clear Calc 44.67, Est GFR (MDRD) Af Amer 59 L, Est GFR (MDRD) Non-Af 49 L, BUN/Creatinine Ratio 21.9 H, Glucose 58 L, Lactic Acid 1.7, Calcium 8.9, Magnesium 1.8, Total Bilirubin 1.00, AST 68 H, ALT 28, Alkaline Phosphatase 82, Total Creatine Kinase 1737 H, Troponin I High Sens 26, B-Natriuretic Peptide 87.2, Total Protein 6.9, Albumin 2.9 L, Globulin 4.0, Albumin/Globulin Ratio 0.7 L 04/08/24 19:43: Troponin I High Sens 24 04/08/24 21:30: Urine Color Yellow, Urine Clarity Clear, Urine pH 6.0, Ur Specific [place] 1.010, Urine Protein 15 H, Urine Glucose (UA) Normal, Urine Ketones Negative, Urine Occult Blood 150 H, Urine Nitrite Negative, Urine Bilirubin Negative, Urine Urobilinogen Normal, Ur Leukocyte Esterase Negative, Urine RBC 0-5 SEEN, Urine WBC 0 SEEN, Ur Squamous Epith Cells 0 SEEN, Urine Bacteria 0 SEEN, Urine Mucus 0 SEEN 04/08/24 22:15: Hemoglobin A1c 5.8 H, Lactic Acid 1.0, TSH 1.470 04/08/24 22:46: POC Glucose 60 L 04/08/24 23:31: POC Glucose 81 04/09/24 06:10: Sodium 137, Potassium 3.5, Chloride 109 H, Carbon Dioxide 24.0, Anion Gap 4 L, BUN 23 H, Creatinine 1.08, Estim Creat Clear Calc 62.45, Est GFR (MDRD) Af Amer 87, Est GFR (MDRD) Non-Af 72, BUN/Creatinine Ratio 21.3 H, Glucose 108 H, Calcium 7.9 L, Total Creatine Kinase 1410 H Micro: Microbiology 04/08/24 22:12 Stool Stool Lactoferrin - Final 04/08/24 22:12 Stool Enteric Bacteriology - Final 04/08/24 22:12 Stool Clostridioides difficile (PCR) - Final 04/08/24 21:30 Urine, Catheterized Urine Culture - Preliminary Culture exhibits no growth. 04/08/24 17:58 Mucosa - Nose SARS-CoV-2, Influenza & RSV (PCR) - Final Radiography Diagnostic Testing: Radiology Impression Brain CT 04/08/24 17:01 IMPRESSION: Chronic involutional changes of the brain. Electronically Signed: Reed Delgado MD at 19:32 EST Reading Location ID and State: [facility] / [place] , Service support , Cervical Spine CT 04/08/24 17:01 IMPRESSION: Multilevel degenerative changes, as described above. Electronically Signed: Reed Delgado MD at 19:48 EST Reading Location ID and State: [address] [place] [address] , Service support , Abdomen/Pelvis CT 04/08/24 17:30 IMPRESSION: Rectal wall thickening and mass with perirectal lymph nodes consistent with rectal carcinoma. Moderate stool. No obstruction. Bilateral renal stones. No hydronephrosis. Electronically Signed: Reed Delgado MD at 19:44 EST Reading Location ID and State: [address] [place] [address] , Service support , Chest CTA 04/08/24 17:30 IMPRESSION: CTA chest examination, without a demonstrated pulmonary embolism or arterial dissection. No focal infiltrate or edema. Electronically Signed: Reed Delgado MD at 19:19 EST Reading Location ID and State: [facility] / [place] , Service support , Rhythm Strip Rhythm Strip: Sinus Rhythm Rate: 75 Ectopy: None Physical Exam Narrative Seen and examined Patient came with dizziness lightheadedness and hypotension with history of chronic diarrhea and rectal cancer.On Levophed drip in ICU. No fever. Patient states usually he gets semisolid to liquid BM 3 to 6/day. Sometimes he wipes blood after BM. Physical exam General: Alert, Oriented x3, Cooperative. BMI 27.5 kg/m? HEENT: Atraumatic, PERRLA, EOMI, Normocephalic Oral: No Gingival or Mucosal Lesions/ Ulcerations Neck: Supple, No JVD, Negative Carotid Bruits Chest wall/Lungs: Air entry diminished in bilateral lung bases. No crepitation/rhonchi Cardiovascular: Regular rate, Regular Rhythm, Normal S1, Normal S2, No M/G/R Abdomen: Bowel Sounds Present, Soft, Non Tender, Non-Distended. Rectal exam was not done : No dysuria. No renal angle tenderness. No suprapubic tenderness. Extremities: No edema, Capillary Refill Less than 3 Seconds Skin: No rashes, No breakdown Musculoskeletal: No Tenderness to Palpation of Joints or Extremities Neurological: Cranial nerves II-XII grossly intact, DTR 2+/4. No acute focal neurological deficit. Psych/Mental Status: Normal Affect, Appropriate. Assessment & Plan Assessment/Plan (1) Diarrhea: QUALIFIERS: Diarrhea type: unspecified type Qualified Code(s): R19.7 - Diarrhea, unspecified (2) Rhabdomyolysis: QUALIFIERS: Rhabdomyolysis type: traumatic Encounter type: initial encounter Qualified Code(s): T79.6XXA - Traumatic ischemia of muscle, initial encounter (3) Hypoglycemia: (4) Overweight (BMI 25.0-29.9): PLAN: Plan 69-year-old gentleman was admitted with generalized weakness dizziness and fall. History of rectal cancer, decided not for treatment 1. Hypovolemic shock may be due to prolonged diarrhea: Patient is being admitted in ICU. Sepsis was consideration but no discernible source of infection. Stool for C. difficile, enteric pathogen panel negative. Sepsis ruled out. Will discontinue the antibiotic. Currently patient on 1 mcg/min Levophed and is being slowly tapered off. Patient has leukocytosis 24.8 with left side probably inflammatory from diarrhea with untreated rectal adenocarcinoma. Lactic acid normal. UA was negative for WBC 0, bacteria 0 LE and nitrite negative. 2. Rectal adenocarcinoma: Patient was seen by surgeon Dr. Rowan. At this time patient has been refusing treatment. Advised to see oncologist and will need pelvic MRI as an outpatient prior to pursuing any treatment. Currently patient does not have rectal pain. Consequences of untreated rectal cancer might result into infection, hemorrhage or rectal obstruction. 3. JEN with rhabdomyolysis of 1,737 mg/dL present on admission after recent Fall - aggressive IV fluid resuscitation. Repeat CK 1410. Admitting BUNs/creatinine 33/1.51. Creatinine improved to 1.08. JEN resolved. Patient also had mild hyponatremia, sodium 134 which is 137 now. Serum magnesium 1.8. 3. Hypoglycemia of 58 mg/dL present on admission suspected to be due to glipizide with DM-2 - Give D5 NS @ 125 cc/hr to prevent hypoglycemia. A1c 5.8. 4. Overweight; with BMI of 27.5 TSH normal. 5. Elevated d-dimer of 6.07 present on admission - lower extremity DVT study presumably negative as per printing technician 6. Essential hypertension; on losartan - Hold scheduled antihypertensives as patient is hypotensive on Levophed drip 7. Hyperlipidemia - Hold statin for now and check Lipid Profile. 8. Other chronic comorbidities include history of tobacco use, chronic Ex-smoker. Osteoarthritis chronic back pain DVT prophylaxis - Lovenox 30 mg sq daily plus SCD's. Stop LMWH if bleeding ensues. Charges/Coding Visit Charges Inpatient E&M: 49931 [facility] Hosp L3
[2024-04-09] MEDS: Pantoprazole Sodium 40 MG in 0.9% Normal Saline (100mL MB+) 100 ML 330 MG IV (10:44)
--- NOTE | 2024-04-09 12:37 | CON.PCM.ON_ITS ---
Assessment & Plan Assessment/Plan (1) Diarrhea: Status: Acute Code(s): R19.7 - Diarrhea, unspecified Qualifiers: Diarrhea type: unspecified type Qualified Code(s): R19.7 - Diarrhea, unspecified (2) Rhabdomyolysis: Status: Acute Code(s): M62.82 - Rhabdomyolysis Qualifiers: Rhabdomyolysis type: traumatic Encounter type: initial encounter Qu alified Code(s): T79.6XXA - Traumatic ischemia of muscle, initial encounter (3) Hypoglycemia: Status: Acute Code(s): E16.2 - Hypoglycemia, unspecified (4) Overweight (BMI 25.0-29.9): Status: Acute Code(s): E66.3 - Overweight HPI Consult Data Date of Service:: 04/09/24 PCP / Referring Provider: MICHELE Lyons, MANAGER FINE DINING-C Attending: Dr. Juan Willis MD Chief Complaint Chief Complaint: Rectal cancer Advanced Directives Power of Gardening Instructor: No Living Will: No PFSH Medical History Wears glasses Diabetes Back pain Injury of head and neck Former smoker History of echocardiogram Hypertension Cardiology follow-up encounter Diarrhea Pre-op evaluation Abnormal electrocardiogram Type 2 diabetes mellitus Pure hypercholesterolemia Essential hypertension Home Medications ?Medication ?Instructions ?Recorded ?Last Taken ?Type losartan 50 mg tablet 50 mg PO DAILY #1 TAB 10/13/20 Unknown Rx glipizide 5 mg tablet, extended 5 mg PO DAILY 04/08/24 Unknown History release 24 hr timolol maleate 0.5 % eye drops 1 drp ophthalmic (eye) BID 04/08/24 Unknown History Allergy/AdvReac Type Severity Reaction Status Date / Time No Known Allergies Allergy Verified 04/08/24 16:14 Family History Mother Diabetes Surgical History History of bilateral cataract extraction Status post laser trabeculoplasty of eye Social History Smoking Status: Former smoker alcohol intake: never substance use type: does not use caffeine: No Vital Signs Temperature 98.2 F 04/09/24 04:00 Temperature Source Temporal 12/24/24 04:00 Pulse Rate 71 04/09/24 11:00 Pulse Strength Normal (2+) 04/09/24 08:12 Respiratory Rate 19 H 04/09/24 11:00 Respiratory Effort Normal, Non-Labored 04/09/24 04:00 Respiratory Depth Normal 04/09/24 04:00 Respiratory Pattern Normal 04/09/24 04:00 Blood Pressure 126/49 H 04/09/24 11:00 Blood Pressure Mean 74 04/09/24 11:00 Blood Pressure Source Monitor 04/09/24 07:00 Blood Pressure Position Semi-Fowlers 04/08/24 22:27 Blood Pressure Location Right Arm 04/08/24 22:27 Pulse Ox 98 04/09/24 11:00 Oxygen Delivery Method Room Air 04/09/24 11:00 Laboratory Results - last 24 hr 04/08/24 16:50: WBC 24.8 H, RBC 4.04 L, Hgb 11.8 L, Hct 35.3 L, MCV 87.4, MCH 29.2, MCHC 33.4, RDW Std Deviation 42.9, RDW Coeff of Mariella 13.4, Plt Count 227, MPV 9.6, Immature Gran % (Auto) MANAGER FINE DINING, Neut % (Auto) MANAGER FINE DINING, Lymph % (Auto) MANAGER FINE DINING, [place] % (Auto) MANAGER FINE DINING, Eos % (Auto) MANAGER FINE DINING, Baso % (Auto) MANAGER FINE DINING, Absolute Neuts (auto) 24.1 H, Abs olute Lymphs (auto) 0.25 L, Total Counted 100, Neutrophils % (Manual) 97 H, Lymphocytes % (Manual) 1 L, Monocytes % (Manual) 1, Metamyelocytes % 1, Nucleated RBC % 0, Hypersegmented Neuts RARE H, Atypical Lymphocytes 1+, Platelet Estimate ADEQUATE, Plt Morphology Comment LARGE, [place] Cells RARE, D- Dimer Quant (PE/DVT) 6.07 H*, Sodium 134 L, Potassium 4.6, Chloride 99, Carbon Dioxide 28.0, Anion Gap 6, BUN 33 H, Creatinine 1.51 H, Estim Creat Clear Calc 44.67, Est GFR (MDRD) Af Amer 59 L, Est GFR (MDRD) Non-Af 49 L, BUN/Creatinine Ratio 21.9 H, Glucose 58 L, Lactic Acid 1.7, Calcium 8.9, Magnesium 1.8, Total Bilirubin 1.00, AST 68 H, ALT 28, Alkaline Phosphatase 82, Total Creatine Kinase 1737 H, Troponin I High Sens 26, B-Natriuretic Peptide 87.2, Total Protein 6.9, Albumin 2.9 L, Globulin 4.0, Albumin/Globulin Ratio 0.7 L 04/08/24 19:43: Troponin I High Sens 24 04/08/24 21:30: Urine Color Yellow, Urine Clarity Clear, Urine pH 6.0, Ur Specific [place] 1.010, Urine Protein 15 H, Urine Glucose (UA) Normal, Urine Ketones Negative, Urine Occult Blood 150 H, Urine Nitrite Negative, Urine Bilirubin Negative, Urine Urobilinogen Normal, Ur Leukocyte Esterase Negative, Urine RBC 0-5 SEEN, Urine WBC 0 SEEN, Ur Squamous Epith Cells 0 SEEN, Urine Bacteria 0 SEEN, Urine Mucus 0 SEEN 04/08/24 22:15: Hemoglobin A1c 5.8 H, Lactic Acid 1.0, TSH 1.470 04/08/24 22:46: POC Glucose 60 L 04/08/24 23:31: POC Glucose 81 04/09/24 06:10: Sodium 137, Potassium 3.5, Chloride 109 H, Carbon Dioxide 24.0, Anion Gap 4 L, BUN 23 H, Creatinine 1.08, Estim Creat Clear Calc 62.45, Est GFR (MDRD) Af Amer 87, Est GFR (MDRD) Non-Af 72, BUN/Creatinine Ratio 21.3 H, Glucose 108 H, Calcium 7.9 L, Total Creatine Kinase 1410 H Microbiology 04/08/24 22:12 Stool Stool Lactoferrin - Final 04/08/24 22:12 Stool Enteric Bacteriology - Final 04/08/24 22:12 Stool Clostridioides difficile (PCR) - Final 04/08/24 21:30 Urine, Catheterized Urine Culture - Preliminary Culture exhibits no growth. 04/08/24 17:58 Mucosa - Nose SARS-CoV-2, Influenza & RSV (PCR) - Final Diagnostic Data Brain CT 04/08/24 17:01 IMPRESSION: Chronic involutional changes of the brain. Electronically Signed: Reed Delgado MD at 19:32 EST , Cervical Spine CT 04/08/24 17:01 IMPRESSION: Multilevel degenerative changes, as described above. Electronically Signed: Reed Delgado MD at 19:48 EST , Abdomen/Pelvis CT 04/08/24 17:30 IMPRESSION: Rectal wall thickening and mass with perirectal lymph nodes consistent with rectal carcinoma. Moderate stool. No obstruction. Bilateral renal stones. No hydronephrosis. Electronically Signed: Reed Delgado MD at 19:44 EST , Chest CTA 04/08/24 17:30 IMPRESSION: CTA chest examination, without a demonstrated pulmonary embolism or arterial dissection. No focal infiltrate or edema. Electronically Signed: Reed Delgado MD at 19:19 EST ,
--- NOTE | 2024-04-09 12:37 | ONC.CONSULT ---
Assessment & Plan Assessment/Plan (1) Adenocarcinoma of rectum: Status: Acute Code(s): C20 - Malignant neoplasm of rectum Plan: Mr. Mclaughlin is a 69-year-old gentleman diagnosed with adenocarcinoma of the rectum December 2022 who initially declined treatment. We discussed logistics and potential side effects of concurrent chemoradiation and the expected natural progression of the disease and potential complications including obstruction if he elects to decline treatment. We also discussed need for MRI pelvis for proper staging and treatment planning. At this time, he does not consent to imaging but is willing to come to clinic for consultation. Advise follow-up with [facility] upon discharge. HPI Consult Data Date of Service:: 04/09/24 PCP / Referring Provider: MICHELE Lyons, AMUSEMENT OR RECREATION CARD CHECKER-C Attending: Dr. Juan Willis MD Chief Complaint Chief Complaint: Rectal cancer History of Present Illness History of Present Illness: Mr. Claudio Mclaughlin is a 69 year old gentleman with a past medical history positive for hypertension, hyperlipidemia, DM?2, and rectal cancer who presented to [facility] via squad on 04/08/2024 after a fall outside of his home. Lab assessment significant for white blood cell count 24.8, mild anemia as evidenced by hemoglobin 11.8, elevated creatinine, elevated D-dimer, and albumin. Imaging included CTA chest, CT brain, CT abdomen and pelvis. CTA chest was negative for pulmonary embolism, infiltrates and edema. CT brain showed chronic involutional changes only. CT abdomen and pelvis with IV contrast demonstrated rectal wall thickening and mass with perirectal lymph nodes consistent with rectal carcinoma, moderate stool, no obstruction, bilateral renal stones, and no hydronephrosis. He was diagnosed with suspected sepsis and shock; with severe hypotension refractory to treatment with fluid boluses requiring pressors and was subsequently admitted to ICU. Mr. Mclaughlin was found to have pathologically confirmed adenocarcinoma of the rectum December 2022 after presenting to general surgery with complaints of bright red blood per rectum. He was evaluated by colorectal surgeon, Dr. Purvis at [facility] who recommended pelvic MRI, patient declined treatment. An oncology consultation has been requested this admission to discuss recommended follow-up as imaging of chest, abdomen, and pelvis do not indicate any evidence of gross metastatic disease at this time. Advanced Directives Power of Pull Through Hooker: No Living Will: No [facility] Medical History Wears glasses Diabetes Back pain Injury of head and neck Former smoker History of echocardiogram Hypertension Cardiology follow-up encounter Diarrhea Pre-op evaluation Abnormal electrocardiogram Type 2 diabetes mellitus Pure hypercholesterolemia Essential hypertension Home Medications ?Medication ?Instructions ?Recorded ?Last Taken ?Type losartan 50 mg tablet 50 mg PO DAILY #1 TAB 10/13/20 Unknown Rx glipizide 5 mg tablet, extended 5 mg PO DAILY 04/08/24 Unknown History release 24 hr timolol maleate 0.5 % eye drops 1 drp ophthalmic (eye) BID 04/08/24 Unknown History Allergy/AdvReac Type Severity Reaction Status Date / Time No Known Allergies Allergy Verified 04/08/24 16:14 Family History Mother Diabetes Surgical History History of bilateral cataract extraction Status post laser trabeculoplasty of eye Social History Smoking Status: Former smoker alcohol intake: never substance use type: does not use caffeine: No ROS Constitutional Constitutional: Denies anorexia ENT HEENT: Denies dysphagia Cardiovascular Cardiovascular: Denies chest pain Respiratory/Chest Respiratory/Chest: Denies cough Gastrointestinal Gastrointestinal: Reports diarrhea, rectal bleeding and other Details: incontinence of stool ; Denies abdominal pain, nausea or vomiting Genitourinary Genitourinary: Denies dysuria Musculoskeletal Musculoskeletal: Reports muscle weakness Integumentary Integumentary: Denies jaundice Physical Exam Const alert, oriented x3 and no apparent distress HEENT normocephalic and head/scalp atraumatic Eyes General Eye: normal appearance of both eyes Resp normal respiratory effort Cardio regular rate GI soft to palpation and non-tender; Negative for non-distended or hepatosplenomegaly Extremity no clubbing, cyanosis or edema Skin no jaundice Neuro oriented x3 and moves all extremities Speech: speech abnormal Details: Positive for other (slow) Psych mental status grossly normal Vital Signs Temperature 98.2 F 04/09/24 04:00 Temperature Source Temporal 04/09/24 04:00 Pulse Rate 71 04/09/24 11:00 Pulse Strength Normal (2+) 04/09/24 08:12 Respiratory Rate 19 H 04/09/24 11:00 Respiratory Effort Normal, Non-Labored 04/09/24 04:00 Respiratory Depth Normal 04/09/24 04:00 Respiratory Pattern Normal 04/09/24 04:00 Blood Pressure 126/49 H 04/09/24 11:00 Blood Pressure Mean 74 04/09/24 11:00 Blood Pressure Source Monitor 04/09/24 07:00 Blood Pressure Position Semi-Fowlers 04/08/24 22:27 Blood Pressure Location Right Arm 04/08/24 22:27 Pulse Ox 98 04/09/24 11:00 Oxygen Delivery Method Room Air 04/09/24 11:00 Laboratory Results - last 24 hr 04/08/24 16:50: WBC 24.8 H, RBC 4.04 L, Hgb 11.8 L, Hct 35.3 L, MCV 87.4, MCH 29.2, MCHC 33.4, RDW Std Deviation 42.9, RDW Coeff of Mariella 13.4, Plt Count 227, MPV 9.6, Immature Gran % (Auto) AMUSEMENT OR RECREATION CARD CHECKER, Neut % (Auto) AMUSEMENT OR RECREATION CARD CHECKER, Lymph % (Auto) AMUSEMENT OR RECREATION CARD CHECKER, [place] % (Auto) AMUSEMENT OR RECREATION CARD CHECKER, Eos % (Auto) AMUSEMENT OR RECREATION CARD CHECKER, Baso % (Auto) AMUSEMENT OR RECREATION CARD CHECKER, Absolute Neuts (auto) 24.1 H, Absolute Lymphs (auto) 0.25 L, Total Counted 100, Neutrophils % (Manual) 97 H, Lymphocytes % (Manual) 1 L, Monocytes % (Manual) 1, Metamyelocytes % 1, Nucleated RBC % 0, Hypersegmented Neuts RARE H, Atypical Lymphocytes 1+, Platelet Estimate ADEQUATE, Plt Morphology Comment LARGE, [place] Cells RARE, D-Dimer Quant (PE/DVT) 6.07 H*, Sodium 134 L, Potassium 4.6, Chloride 99, Carbon Dioxide 28.0, Anion Gap 6, BUN 33 H, Creatinine 1.51 H, Estim Creat Clear Calc 44.67, Est GFR (MDRD) Af Amer 59 L, Est GFR (MDRD) Non-Af 49 L, BUN/Creatinine Ratio 21.9 H, Glucose 58 L, Lactic Acid 1.7, Calcium 8.9, Magnesium 1.8, Total Bilirubin 1.00, AST 68 H, ALT 28, Alkaline Phosphatase 82, Total Creatine Kinase 1737 H, Troponin I High Sens 26, B-Natriuretic Peptide 87.2, Total Protein 6.9, Albumin 2.9 L, Globulin 4.0, Albumin/Globulin Ratio 0.7 L 04/08/24 19:43: Troponin I High Sens 24 04/08/24 21:30: Urine Color Yellow, Urine Clarity Clear, Urine pH 6.0, Ur Specific [place] 1.010, Urine Protein 15 H, Urine Glucose (UA) Normal, Urine Ketones Negative, Urine Occult Blood 150 H, Urine Nitrite Negative, Urine Bilirubin Negative, Urine Urobilinogen Normal, Ur Leukocyte Esterase Negative, Urine RBC 0-5 SEEN, Urine WBC 0 SEEN, Ur Squamous Epith Cells 0 SEEN, Urine Bacteria 0 SEEN, Urine Mucus 0 SEEN 04/08/24 22:15: Hemoglobin A1c 5.8 H, Lactic Acid 1.0, TSH 1.470 04/08/24 22:46: POC Glucose 60 L 04/08/24 23:31: POC Glucose 81 04/09/24 06:10: Sodium 137, Potassium 3.5, Chloride 109 H, Carbon Dioxide 24.0, Anion Gap 4 L, BUN 23 H, Creatinine 1.08, Estim Creat Clear Calc 62.45, Est GFR (MDRD) Af Amer 87, Est GFR (MDRD) Non-Af 72, BUN/Creatinine Ratio 21.3 H, Glucose 108 H, Calcium 7.9 L, Total Creatine Kinase 1410 H Microbiology 04/08/24 22:12 Stool Stool Lactoferrin - Final 04/08/24 22:12 Stool Enteric Bacteriology - Final 04/08/24 22:12 Stool Clostridioides difficile (PCR) - Final 04/08/24 21:30 Urine, Catheterized Urine Culture - Preliminary Culture exhibits no growth. 04/08/24 17:58 Mucosa - Nose SARS-CoV-2, Influenza & RSV (PCR) - Final Diagnostic Data Brain CT 04/08/24 17:01 IMPRESSION: Chronic involutional changes of the brain. Electronically Signed: Reed Delgado MD at 19:32 EST , Cervical Spine CT 04/08/24 17:01 IMPRESSION: Multilevel degenerative changes, as described above. Electronically Signed: Reed Delgado MD at 19:48 EST , Abdomen/Pelvis CT 04/08/24 17:30 IMPRESSION: Rectal wall thickening and mass with perirectal lymph nodes consistent with rectal carcinoma. Moderate stool. No obstruction. Bilateral renal stones. No hydronephrosis. Electronically Signed: Reed Delgado MD at 19:44 EST Reading Location ID and State: [facility] / [place] , Service support , Chest CTA 04/08/24 17:30 IMPRESSION: CTA chest examination, without a demonstrated pulmonary embolism or arterial dissection. No focal infiltrate or edema. Electronically Signed: Reed Delgado MD at 19:19 EST ,
[2024-04-09 13:19] LABS: Procalcitonin > 50.00 ng/mL (0.00-0.09)
[2024-04-09] MEDS: Glucerna Shake 120 ML LIQUID PO (16:32)
[2024-04-09 21:05] LABS: Bedside Glucose 113 mg/dL (74-106)
[2024-04-09 21:29] LABS: Pathologist Review Reviewed
[2024-04-10] VITALS (16 sets, daily range): BP systolic 101–132; BP diastolic 40–115; PULSE 48–66; RESP 16–20; TEMP 36.3–36.7; O2SAT 97–100; BMI 28.0
[2024-04-10] MEDS: Piperacil/Tazobactam 3.375 GM in 0.9% Normal Saline (50mL MB+) 50 ML IV (05:11)
[2024-04-10] MEDS: Vancomycin Trough/Random Due 1 LAB MC (05:12)
[2024-04-10] MEDS: 0.9% Saline Lock 10 ML Syringe IV ×2 (05:12→08:13)
[2024-04-10 07:00] LABS: Vancomycin, Trough Level 12.9 ug/mL (5.0-15.0)
[2024-04-10] MEDS: Vancomycin HCl 750 MG in 0.9% Normal Saline (250mL Bag) 250 ML 250 MG IV (08:12)
[2024-04-10] MEDS: Glucerna Shake 120 ML LIQUID PO ×3 (08:15→17:35)
[2024-04-10 08:29] LABS: Absolute Lymphocyte Count 1.23 X10^3/uL (0.83-4.51); Basophil# 0.03 X10^3/uL; Basophil% 0.4 % (0-1); Eosinophils% 2.4 % (0-5); Hematocrit 30.2 % (40-54); Lymphocyte # 1.23 X10^3/ul (0.83-4.51); Lymphocyte % 14.8 % (19-41); Mean Corp Hgb Conc 33.1 g/dL (32-36); Mean Corpuscular Hgb 29.1 pg (27.0-32.0); Mean Corpuscular Volume 87.8 fL (80-94); Mean Platelet Vol. 10.6 fl (6.2-12.0); Monocyte# 0.78 X10^3/uL; Monocyte% 9.4 % (0-10); NRBC Flagged by Analyzer 0 % (0-5); Neutrophil # 6.01 X10^3/uL (2.7-7.7); Neutrophil % 72.4 % (47-70); Platelet Count 174 K/mm3 (150-450); RBC Distribution Width CV 13.2 % (11.6-14.6); RBC Distribution Width SD 42.7 fl (35.1-43.9); Red Blood Count 3.44 M/mm3 (4.6-6.2); White Blood Count 8.3 K/mm3 (4.4-11.0)
--- NOTE | 2024-04-10 08:41 | PN.HOSP_ITS ---
Reason for Visit Reason for Visit: Diagnoses Sepsis, unspecified organism (04/08/24) Malignant neoplasm of rectum (04/08/24) Malignant (primary) neoplasm, unspecified (04/08/24) Hypoglycemia, unspecified (04/08/24) Overweight (04/08/24) Hypotension, unspecified (04/08/24) Other specified diseases of anus and rectum (04/08/24) Acute kidney failure, unspecified (04/08/24) Diarrhea, unspecified (04/08/24) Severe sepsis with septic shock (04/08/24) Other specified abnormal findings of blood chemistry (04/08/24) Traumatic ischemia of muscle, initial encounter (04/08/24) Objective Data Objective Data Vital Signs: Vital Signs Temp Pulse Resp BP Pulse Ox O2 Del Method 97.4 F L 60 16 122/50 H 100 Room Air 04/10/24 08:00 04/10/24 08:00 04/10/24 08:00 04/10/24 08:00 04/10/24 08:00 04/10/24 08:00 Oxygen Delivery Method Room Air Weight: 184 lb 11.958 oz Body Mass Index (BMI) 28.0 Intake & Output: Intake and Output for Last 24 Hours 04/08/24 04/09/24 04/10/24 23:59 23:59 23:59 Intake Total 3174.65 / 3174.65 3725.07 / 3726.97 51.9 / 51.9 Output Total 1700 / 2400 1950 / 1950 Balance 3174.65 / 3174.65 2025.07 / 1326.97 -1898.1 / -1898.1 Lab / Micro Data 04/10/24 06:35 04/10/24 06:35 Labs: Laboratory Results - last 24 hr 04/08/24 16:50: Diff Path Review Reviewed 04/09/24 10:20: Procalcitonin > 50.00 H 04/09/24 20:44: POC Glucose 113 H 04/10/24 06:35: WBC 8.3, RBC 3.44 L, Hgb 10.0 L, Hct 30.2 L, MCV 87.8, MCH 29.1, MCHC 33.1, RDW Std Deviation 42.7, RDW Coeff of Mariella 13.2, Plt Count 174, MPV 10.6, Immature Gran % (Auto) 0.600, Neut % (Auto) 72.4 H, Lymph % (Auto) 14.8 L, Ritchie % (Auto) 9.4, Eos % (Auto) 2.4, Baso % (Auto) 0.4, Absolute Neuts (auto) 6.0, Absolute Lymphs (auto) 1.23, Nucleated RBC % 0, Vancomycin Trough 12.9 Micro: Microbiology 04/08/24 22:12 Stool Stool Lactoferrin - Final 04/08/24 22:12 Stool Enteric Bacteriology - Final 04/08/24 22:12 Stool Clostridioides difficile (PCR) - Final 04/08/24 21:30 Urine, Catheterized Urine Culture - Preliminary Culture exhibits no growth. 04/08/24 17:58 Mucosa - Nose SARS-CoV-2, Influenza & RSV (PCR) - Final Radiography Diagnostic Testing: Radiology Impression Venous Doppler Study 04/09/24 07:53 Interpretation Summary Deep veins of the lower extremities are bilaterally patent and compressible segmentally. There is no evidence of deep vein thrombosis on either side. Valvular competence appears intact within the proximal deep venous systems bilaterally. The great saphenous veins appear bilaterally patent and compressible segmentally. Rhythm Strip Rhythm Strip: Sinus Rhythm Rate: 75 Ectopy: None Physical Exam Narrative Seen and examined Patient sometimes has blank look, flat face with shaking. Denies history of Parkinson disease or other neurological disease. Off Levophed since yesterday. Patient came with dizziness lightheadedness and hypotension with history of chronic diarrhea and rectal cancer. No fever. Patient states usually he gets semisolid to liquid BM 3 to 6/day. Sometimes he wipes blood after BM. Physical exam General: Alert, Oriented x3, Cooperative. BMI 27.5 kg/m? HEENT: Atraumatic, PERRLA, EOMI, Normocephalic Oral: No Gingival or Mucosal Lesions/ Ulcerations Neck: Supple, No JVD, Negative Carotid Bruits Chest wall/Lungs: Air entry diminished in bilateral lung bases. No crepitation/rhonchi Cardiovascular: Regular rate, Regular Rhythm, Normal S1, Normal S2, No M/G/R Abdomen: Bowel Sounds Present, Soft, Non Tender, Non-Distended. Rectal exam was not done : No dysuria. No renal angle tenderness. No suprapubic tenderness. Extremities: No edema, Capillary Refill Less than 3 Seconds Skin: No rashes, No breakdown Musculoskeletal: No Tenderness to Palpation of Joints or Extremities Neurological: Cranial nerves II-XII grossly intact, DTR 2+/4. No acute focal neurological deficit. Psych/Mental Status: Normal Affect, Appropriate. Assessment & Plan Assessment/Plan (1) Diarrhea: QUALIFIERS: Diarrhea type: unspecified type Qualified Code(s): R 19.7 - Diarrhea, unspecified (2) Rhabdomyolysis: QUALIFIERS: Encounter type: initial encounter Rhabdomyolysis type: traumatic Qualified Code(s): T79.6XXA - Traumatic ischemia of muscle, initial encounter (3) Hypoglycemia: (4) Overweight (BMI 25.0-29.9): PLAN: Plan 69-year-old gentleman was admitted with generalized weakness dizziness and fall. History of rectal cancer, decided not for treatment 1. Hypovolemic shock may be due to prolonged diarrhea: Patient is being admitted in ICU. Sepsis was consideration but no discernible source of infection. Stool for C. difficile, enteric pathogen panel negative. Sepsis ruled out. Will discontinue the antibiotic. Currently patient on 1 mcg/min Levophed and is being slowly tapered off. Patient has leukocytosis 24.8 with left side probably inflammatory from diarrhea with untreated rectal adenocarcinoma. Lactic acid normal. UA was negative for WBC 0, bacteria 0 LE and nitrite negative. 04/10: Sepsis ruled out. Patient off Levophed drip. BP stable around 122/50. 2. Rectal adenocarcinoma: Patient was seen by surgeon Dr. Rowan. At this time patient has been refusing treatment. Advised to see oncologist and will need pelvic MRI as an outpatient prior to pursuing any treatment. Currently patient does not have rectal pain. Consequences of untreated rectal cancer might result into infection, hemorrhage or rectal obstruction. 3. JEN with rhabdomyolysis of 1,737 mg/dL present on admission after recent Fall - aggressive IV fluid resuscitation. Repeat CK 1410. Admitting BUNs/creatinine 33/1.51. Creatinine improved to 1.08. JEN resolved. Patient also had mild hyponatremia, sodium 134 which is 137 now. Serum magnesium 1.8. 3. Hypoglycemia of 58 mg/dL present on admission suspected to be due to glipizide with DM-2 - Give D5 NS @ 125 cc/hr to prevent hypoglycemia. A1c 5.8. 4. Overweight; with BMI of 27.5 TSH normal. 5. Elevated d-dimer of 6.07 present on admission - lower extremity DVT study presumably negative as per insulation technician 6. Essential hypertension; on losartan - Hold scheduled antihypertensives as patient is hypotensive on Levophed drip 7. Hyperlipidemia - Hold statin for now and check Lipid Profile. 8. Other chronic comorbidities include history of tobacco use, chronic Ex- smoker. Osteoarthritis chronic back pain DVT prophylaxis - Lovenox 30 mg sq daily plus SCD's. Stop LMWH if bleeding ensues. Charges/Coding Visit Charges Inpatient E&M: 55710 Subs Hosp L2
[2024-04-10 08:43] LABS: ALB/GLOB Ratio 0.7 RATIO (0.9-2.4); AST(SGOT) 43 U/L (15-37); Alanine Aminotransfer ALT/SGPT 22 U/L (16-61); Albumin, Serum 2.3 g/dL (3.2-5.0); Alkaline Phosphatase 65 U/L (45-117); Anion Gap 2 (5-15); BUN 14 mg/dL (7-18); BUN/Creat Ratio 14.4 RATIO (10-20); CPK Total, Creatine Kinase 542 U/L (39-308); Calcium,Total 7.9 mg/dL (8.5-10.1); Chloride 111 mmol/L (98-107); Creatinine, Serum 0.97 mg/dL (0.70-1.30); EST Glomerular Filtration Rate 81 mL/min (>60); Est Glom Filt Rate - Afr Amer 99 mL/min (>60); Globulin 3.2 g/dL (2.2-4.2); Glucose 85 mg/dL (74-106); Potassium 3.6 mmol/L (3.5-5.1); Protein, Total 5.5 g/dL (6.4-8.2); Sodium Level 140 mmol/L (136-145)
[2024-04-10] MEDS: Enoxaparin 30 MG/0.3 ML Syringe SC (09:48)
[2024-04-10] MEDS: Pantoprazole Sodium 40 MG in 0.9% Normal Saline (100mL MB+) 100 ML 330 MG IV (09:48)
[2024-04-10] MEDS: Timolol 0.5% 5ML OPTH.BTL 1 DRP OPHTHALMIC ×2 (09:48→21:31)
[2024-04-10] MEDS: Lactobacillis Acidophilus 1 CAP PO ×4 (09:48→21:31)
[2024-04-10 22:32] LABS: Bedside Glucose 169 mg/dL (74-106)
[2024-04-11 03:00] VITALS: BP 129/54; PULSE 69; RESP 16; TEMP 36.4; O2SAT 98
[2024-04-11] MEDS: Menthol/Lanolin/Calamine/Znox 113 GM Tube 1 APPLIC TOPICAL ×3 (03:05→21:03)
[2024-04-11 03:50] VITALS: BMI 28.0
[2024-04-11 09:00] VITALS: BP 138/84; PULSE 63; RESP 16; TEMP 36.9; O2SAT 96
[2024-04-11] MEDS: Lactobacillis Acidophilus 1 CAP PO ×4 (10:07→21:02)
[2024-04-11] MEDS: Timolol 0.5% 5ML OPTH.BTL 1 DRP OPHTHALMIC ×2 (10:07→21:02)
[2024-04-11] MEDS: Enoxaparin 30 MG/0.3 ML Syringe SC (10:07)
[2024-04-11] MEDS: Pantoprazole Sodium 40 MG in 0.9% Normal Saline (100mL MB+) 100 ML 330 MG IV (10:18)
[2024-04-11] MEDS: Glucerna Shake 120 ML LIQUID PO ×3 (10:20→17:18)
--- NOTE | 2024-04-11 11:18 | PCM.PN.HOSP ---
Reason for Visit Reason for Visit: Diagnoses Sepsis, unspecified organism (04/08/24) Malignant neoplasm of rectum (04/08/24) Malignant (primary) neoplasm, unspecified (04/08/24) Hypoglycemia, unspecified (04/08/24) Overweight (04/08/24) Hypotension, unspecified (04/08/24) Other specified diseases of anus and rectum (04/08/24) Acute kidney failure, unspecified (04/08/24) Diarrhea, unspecified (04/08/24) Severe sepsis with septic shock (04/08/24) Other specified abnormal findings of blood chemistry (04/08/24) Traumatic ischemia of muscle, initial encounter (04/08/24) Objective Data Objective Data Vital Signs: Vital Signs Temp Pulse Resp BP Pulse Ox O2 Del Method 98.5 F 63 16 138/84 H 96 Room Air 04/11/24 09:00 04/11/24 09:00 04/11/24 09:00 04/11/24 09:00 04/11/24 09:00 04/11/24 10:00 Oxygen Delivery Method Room Air Weight: 184 lb 11.958 oz Body Mass Index (BMI) 28.0 Intake & Output: Intake and Output for Last 24 Hours 04/09/24 04/10/24 04/11/24 23:59 23:59 23:59 Intake Total 3725.07 / 3726.97 1353.57 / 1353.57 310 / 310 Output Total 1700 / 2400 3150 / 3150 300 / 300 Balance 2025.07 / 1326.97 -1796.43 / -1796.43 Lab / Micro Data 04/10/24 06:35 04/10/24 06:35 Labs: Laboratory Results - last 24 hr 04/10/24 21:27: POC Glucose 169 H Micro: Microbiology 04/08/24 21:30 Urine, Catheterized Urine Culture - Preliminary Gram positive sarah 04/08/24 22:12 Stool Stool Lactoferrin - Final 04/08/24 22:12 Stool Enteric Bacteriology - Final 04/08/24 22:12 Stool Clostridioides difficile (PCR) - Final 04/08/24 17:58 Mucosa - Nose SARS-CoV-2, Influenza & RSV (PCR) - Final Rhythm Strip Rhythm Strip: Sinus Rhythm Rate: 75 Ectopy: None Physical Exam Narrative Seen and examined Patient still feels very weak, not able to sit up or move himself. Needs support. Patient sometimes has blank look, flat face with shaking. Denies history of Parkinson disease or other neurological disease. Patient was admitted with dizziness lightheadedness and hypotension with history of chronic diarrhea and rectal cancer. No fever. Patient states usually he gets semisolid to liquid BM 3 to 6/day. Sometimes he wipes blood after BM. Physical exam General: Alert, Oriented x3, Cooperative. BMI 27.5 kg/m? HEENT: Atraumatic, PERRLA, EOMI, Normocephalic Oral: No Gingival or Mucosal Lesions/ Ulcerations Neck: Supple, No JVD, Negative Carotid Bruits Chest wall/Lungs: Air entry diminished in bilateral lung bases. No crepitation/rhonchi Cardiovascular: Regular rate, Regular Rhythm, Normal S1, Normal S2, No M/G/R Abdomen: Bowel Sounds Present, Soft, Non Tender, Non-Distended. Rectal exam was not done : No dysuria. No renal angle tenderness. No suprapubic tenderness. Extremities: No edema, Capillary Refill Less than 3 Seconds Skin: No rashes, No breakdown Musculoskeletal: No Tenderness to Palpation of Joints or Extremities Neurological: Cranial nerves II-XII grossly intact, DTR 2+/4. Tremors in hand. Increased stiffness of knees and hip joints. Posterior instability. No acute focal neurological deficit. Psych/Mental Status: Normal Affect, Appropriate. Assessment & Plan Assessment/Plan (1) Diarrhea: QUALIFIERS: Diarrhea type: unspecified type Qualified Code(s): R19.7 - Diarrhea, unspecified (2) Rhabdomyolysis: QUALIFIERS: Rhabdomyolysis type: traumatic Encounter type: initial encounter Qualified Code(s): T79.6XXA - Traumatic ischemia of muscle, initial encounter (3) Hypoglycemia: (4) Overweight (BMI 25.0-29.9): PLAN: Plan 69-year-old gentleman was admitted with generalized weakness dizziness and fall. History of rectal cancer, decided not for treatment 1. Hypovolemic shock may be due to prolonged diarrhea: Patient is being admitted in ICU. Sepsis was consideration but no discernible source of infection. Stool for C. difficile, enteric pathogen panel negative. Sepsis ruled out. Will discontinue the antibiotic. Currently patient on 1 mcg/min Levophed and is being slowly tapered off. Patient has leukocytosis 24.8 with left side probably inflammatory from diarrhea with untreated rectal adenocarcinoma. Lactic acid normal. UA was negative for WBC 0, bacteria 0 LE and nitrite negative. 04/10: Sepsis ruled out. Patient off Levophed drip. BP stable around 122/50. 04/11: Patient is maintaining his blood pressure good. 2. Rectal adenocarcinoma: Patient was seen by surgeon Dr. Rowan. At this time patient has been refusing treatment. Advised to see oncologist and will need pelvic MRI as an outpatient prior to pursuing any treatment. Currently patient does not have rectal pain. Consequences of untreated rectal cancer might result into infection, hemorrhage or rectal obstruction. 3. JEN with rhabdomyolysis of 1,737 mg/dL present on admission after recent Fall - aggressive IV fluid resuscitation. Repeat CK 1410. Admitting BUNs/creatinine 33/1.51. Creatinine improved to 1.08. JEN resolved. Patient also had mild hyponatremia, sodium 134 which is 137 now. Serum magnesium 1.8. 04/11: Repeat CK5 142. 3. Hypoglycemia of 58 mg/dL present on admission suspected to be due to glipizide with DM-2 - Give D5 NS @ 125 cc/hr to prevent hypoglycemia. A1c 5.8. 4. Overweight; with BMI of 27.5 TSH normal. 5. Elevated d-dimer of 6.07 present on admission - lower extremity DVT study presumably negative as per automotive exhaust emissions technician 6. Essential hypertension; on losartan - Hold scheduled antihypertensives as patient is hypotensive on Levophed drip 7. Hyperlipidemia - Hold statin for now and check Lipid Profile. 8. Physical debility due to decreased musculoskeletal strength, tremors, postural instability with clinical suspicion of Parkinson disease. Needs to follow neurologist as an outpatient. Other chronic comorbidities include history of tobacco use, chronic Ex-smoker. Osteoarthritis chronic back pain DVT prophylaxis - Lovenox 30 mg sq daily plus SCD's. Stop LMWH if bleeding ensues. Charges/Coding Visit Charges Inpatient E&M: 56996 Subs Hosp L2
--- NOTE | 2024-04-11 12:18 | CASEMGMT ---
Social Work SW met w/pt in regard to discharge plan. SW spoke w/pt about going somewhere short term for rehab. Pt is not sure yet what he wants to do, though does state he thinks he may be too weak to go home, is worried he may fall and lives alone. Pt states he keeps hoping he is just going to snap out of it. SW gave pt a list from [facility] of [facility] facilities in network with pt's insurance, in pt's preferred geographic area and complete w/quality and resource use data. Pt asked if there are any facilities in [place]. SW reviewed the list w/pt and pointed out all of the facilities in [place]. Pt states he is not ready to make a decision today. He states his brother Art is coming to visit pt later today and he will discuss it with him. Pt has never been to SNF before. SW inquired if staying w/one of his brothers may be an option, he states it may be. SW explained will follow up w/him again later today or tomorrow once he has spoken w/his brother, for further discussion regarding discharge plan. Plan: TBD, home vs SNF. SANTOS Cline
[2024-04-11 15:00] VITALS: BP 119/50; PULSE 56; RESP 17; TEMP 36.7; O2SAT 98
[2024-04-11] MEDS: 0.9% Saline Lock 10 ML Syringe IV (21:03)
[2024-04-11 21:15] VITALS: BP 138/84; PULSE 64; RESP 18; TEMP 36.8; O2SAT 98
[2024-04-12 03:30] VITALS: BP 149/48; PULSE 59; RESP 18; TEMP 36.7; O2SAT 98
[2024-04-12 05:45] VITALS: BP 120/50; PULSE 58; RESP 16; TEMP 36.8; O2SAT 96
[2024-04-12 05:50] VITALS: BMI 28.3
[2024-04-12] MEDS: Lactobacillis Acidophilus 1 CAP PO ×2 (08:37→13:08)
[2024-04-12] MEDS: Menthol/Lanolin/Calamine/Znox 113 GM Tube 1 APPLIC TOPICAL (08:37)
[2024-04-12] MEDS: Enoxaparin 30 MG/0.3 ML Syringe SC (08:37)
[2024-04-12] MEDS: Timolol 0.5% 5ML OPTH.BTL 1 DRP OPHTHALMIC (08:38)
[2024-04-12] MEDS: Glucerna Shake 120 ML LIQUID PO ×2 (08:38→13:08)
[2024-04-12] MEDS: Pantoprazole Sodium 40 MG in 0.9% Normal Saline (100mL MB+) 100 ML 330 MG IV (08:52)
--- NOTE | 2024-04-12 09:10 | PCM.DC ---
Discharge Instructions Diet Discharge Diet: Low fat / Low cholesterol and 1800 Calorie Control Diet DC O2, CPAP, BIPAP needs Home O2 Discharge instructions: No Dressing / Incision Discharge Activity: Return to Normal Activity Weight Bearing Status: Weight bearing as tolerated Dressing / Incision Call your doctor if you observe: Fever of 101 or Higher, Coldness, Increased Pain, Numbness or Tingling, Change in Color, Inability to urinate, Inability to have a bowel movement, Shortness of breath, Dizziness, Fainting spells, Swelling in the ankles, Chest pain, Prolonged hiccupping, Increased palpitations (irregular heartbeat) and Calf discomfort Follow Up Care When: IN 2 WEEKS Test Results: Test results from this visit will be discussed in further detail at your follow-up appointment, if applicable. Discharge Plan Admission Admit Date/Time: 04/08/24 21:23 Attending Provider: Jaun Willis Primary Care Provider: Carrie Broussard [facility] Consulting Providers: Stephan Aleman; Lindsey Ritchie; Ron Grande; Mc Hernandez; Keron Yan; Zen Ventura; Stephan Hermosillo; Farhan Kidd; Conor Eastman; Tasha Reyes; Wayne Escudero; Bethel Mcintosh; Nelson Mills; Kaylene Tapia; Sandra Han; Stanley Zheng; Zac Medina; Austin Mijares; Booker Benson; Parth Vazquez; Michael Judd; Cholo Contreras; Polo Rodriguez; Stephan Cash; Bill Biggs; Jesse Jimenez; Alessandro Alfaro; Claudio Daniels; Jasper Hendrickson; Hemal Douglas; Dale Linares; Irene Moe [employer] Discharge Orders/Prescriptions Prescriptions: Continued timolol maleate 0.5 % drops 1 drp ophthalmic (eye) BID Changed losartan 50 mg tablet 25 mg PO DAILY Qty: 1 0RF Rx Instructions: Start with the lower dose. Held glipizide 5 mg tablet extended release 24hr 5 mg PO DAILY Hold Instructions: Hold it until follows PCP. Might need to be discontinued as A1c is 5.8%, glucose 126. Referrals / Follow Up: Polo Crane MD [Non-Staff] - Within 1 Month (Concern for parkinsonism as the patient has postural instability tremors and mild rigidity.) Carrie Broussard [place], [employer]-C [Primary Care Provider] - Disposition Disposition (needs filled in before D/C Order can be placed): Home, Self Care
[2024-04-12 09:53] LABS: Anion Gap 5 (5-15); BUN 18 mg/dL (7-18); BUN/Creat Ratio 21.3 RATIO (10-20); Calcium,Total 8.9 mg/dL (8.5-10.1); Chloride 106 mmol/L (98-107); Creatinine, Serum 0.85 mg/dL (0.70-1.30); EST Glomerular Filtration Rate 96 mL/min (>60); Est Glom Filt Rate - Afr Amer 116 mL/min (>60); Estimated Creatinine Clearance 86.87 ml/min; Glucose 126 mg/dL (74-106); Potassium 3.8 mmol/L (3.5-5.1); Sodium Level 139 mmol/L (136-145)
--- NOTE | 2024-04-12 10:01 | CASEMGMT ---
Social Work SW spoke w/pt in room in regard to discharge plan. Pt is still indecisive about what he wants to do. SW did inform him that the physician plans to discharge him today. Pt agreeable to SNF referral, but would like to see how he does with therapy today to see if he can still go home. Pt agreeable to referrals to 1. [facility]. [facility] and [facility]. SW spoke with naval surface fire support planner Indy, she will start the referrals, SW will follow up once pt has had PT/OT. SANTOS Cline
--- NOTE | 2024-04-12 10:04 | CASEMGMT ---
Addendum entered by Indy Schmid 04/12/24 12:15: [facility] has declined. SW updated. Indy Schmid DC Planning Asst. Addendum entered by Indy Schmid 04/12/24 10:40: [facility] has accepted. Indy Schmid DC Planning Asst. Original Note: Discharge Planning Referral sent to CC and CC. Indy Schmid DC Planning Asst.
[2024-04-12 10:47] VITALS: BP 142/66; PULSE 62; RESP 16; TEMP 36.6; O2SAT 98
--- NOTE | 2024-04-12 11:15 | PN.HOSP_ITS ---
Reason for Visit Reason for Visit: Diagnoses Sepsis, unspecified organism (04/08/24) Malignant neoplasm of rectum (04/08/24) Malignant (primary) neoplasm, unspecified (04/08/24) Hypoglycemia, unspecified (04/08/24) Overweight (04/08/24) Hypotension, unspecified (04/08/24) Other specified diseases of anus and rectum (04/08/24) Acute kidney failure, unspecified (04/08/24) Diarrhea, unspecified (04/08/24) Severe sepsis with septic shock (04/08/24) Other specified abnormal findings of blood chemistry (04/08/24) Traumatic ischemia of muscle, initial encounter (04/08/24) Objective Data Objective Data Vital Signs: Vital Signs Temp Pulse Resp BP Pulse Ox O2 Del Method 97.9 F 62 16 142/66 H 98 Room Air 04/12/24 10:47 04/12/24 10:47 04/12/24 10:47 04/12/24 10:47 04/12/24 10:47 04/12/24 10:47 Oxygen Delivery Method Room Air Weight: 186 lb 8.177 oz Body Mass Index (BMI) 28.3 Intake & Output: Intake and Output for Last 24 Hours 04/10/24 04/11/24 04/12/24 23:59 23:59 23:59 Intake Total 1353.57 / 1353.57 1110 / 1110 185 / 185 Output Total 3150 / 3150 1700 / 1700 825 / 825 Balance -1796.43 / -1796.43 -590 / -590 -640 / -640 Lab / Micro Data 04/10/24 06:35 04/12/24 09:12 Labs: Laboratory Results - last 24 hr 04/12/24 09:12: Sodium 139, Potassium 3.8, Chloride 106, Carbon Dioxide 29.0, Anion Gap 5, BUN 18, Creatinine 0.85, Estim Creat Clear Calc 86.87, Est GFR (MDRD) Af Amer 116, Est GFR (MDRD) Non-Af 96, BUN/Creatinine Ratio 21.3 H, G lucose 126 H, Calcium 8.9 Micro: Microbiology 04/08/24 21:30 Urine, Catheterized Urine Culture - Final Corynebacterium amycolatum 04/08/24 19:06 Blood Culture (Wb) - Right Hand Blood Culture - Preliminary No growth in 48 hours. 04/08/24 19:05 Blood Culture (Wb) - Left Forearm Blood Culture - Preliminary No growth in 48 hours. 04/08/24 22:12 Stool Stool Lactoferrin - Final 04/08/24 22:12 Stool Enteric Bacteriology - Final 04/08/24 22:12 Stool Clostridioides difficile (PCR) - Final 04/08/24 17:58 Mucosa - Nose SARS-CoV-2, Influenza & RSV (PCR) - Final Rhythm Strip Rhythm Strip: Sinus Rhythm Rate: 75 Ectopy: None Physical Exam Narrative Seen and examined Patient had some blood in the stool, not unyielding. Generalized weakness with limited ADL and needs support. Patient sometimes has blank look, flat face with shaking. Denies history of Parkinson disease or other neurological disease. Patient was admitted with dizziness lightheadedness and hypotension with history of chronic diarrhea and rectal cancer. No fever. Patient states usually he gets semisolid to liquid BM 3 to 6/day. Sometimes he wipes blood after BM. Physical exam General: Alert, Oriented x3, Cooperative. BMI 27.5 kg/m? HEENT: Atraumatic, PERRLA, EOMI, Normocephalic Oral: No Gingival or Mucosal Lesions/ Ulcerations Neck: Supple, No JVD, Negative Carotid Bruits Chest wall/Lungs: Air entry diminished in bilateral lung bases. No crepitation/rhonchi Cardiovascular: Regular rate, Regular Rhythm, Normal S1, Normal S2, No M/G/R Abdomen: Bowel Sounds Present, Soft, Non Tender, Non-Distended. Rectal exam was not done : No dysuria. No renal angle tenderness. No suprapubic tenderness. Extremities: No edema, Capillary Refill Less than 3 Seconds Skin: No rashes, No breakdown Musculoskeletal: No Tenderness to Palpation of Joints or Extremities Neurological: Cranial nerves II-XII grossly intact, DTR 2+/4. Tremors in hand. Increased stiffness of knees and hip joints. Posterior instability. No acute focal neurological deficit. Psych/Mental Status: Normal Affect, Appropriate. Assessment & Plan Assessment/Plan (1) Diarrhea: QUALIFIERS: Diarrhea type: unspecified type Qualified Code(s): R 19.7 - Diarrhea, unspecified (2) Rhabdomyolysis: QUALIFIERS: Rhabdomyolysis type: traumatic Encounter type: i nitial encounter Qualified Code(s): T79.6XXA - Traumatic ischemia of muscle, initial encounter (3) Hypoglycemia: (4) Overweight (BMI 25.0-29.9): PLAN: Plan 69-year-old gentleman was admitted with generalized weakness dizziness and fall. History of rectal cancer, decided not for treatment 1. Hypovolemic shock may be due to prolonged diarrhea: Patient is being admitted in ICU. Sepsis was consideration but no discernible source of infection. Stool for C. difficile, enteric pathogen panel negative. Sepsis ruled out. Will discontinue the antibiotic. Currently patient on 1 mcg/min Levophed and is being slowly tapered off. Patient has leukocytosis 24.8 with left side probably inflammatory from diarrhea with untreated rectal adenocarcinoma. Lactic acid normal. UA was negative for WBC 0, bacteria 0 LE and nitrite negative. 04/10: Sepsis ruled out. Patient off Levophed drip. BP stable around 122/50. 04/11: Patient is maintaining his blood pressure good. 04/12: Heart rate and blood pressure are good. manager of hospital working on pre-CERT and penitent[facility]. 2. Rectal adenocarcinoma: Patient was seen by surgeon Dr. Rowan. At this time patient has been refusing treatment. Advised to see oncologist and will need pelvic MRI as an outpatient prior to pursuing any treatment. Currently patient does not have rectal pain. Consequences of untreated rectal cancer might result into infection, hemorrhage or rectal obstruction. 04/12: Patient had colonoscopy in December 2022 which reported likely malignant partially obstructing tumor in the rectum. Pathology reported invasive adenocarcinoma with negative microsatellite instability study. Since then it seems patient has seen KARLI Serrato, [facility] but it is not clear. Advised to follow-up with [facility]. 3. JEN with rhabdomyolysis of 1,737 mg/dL present on admission after recent Fall - aggressive IV fluid resuscitation. Repeat CK 1410. Admitting BUNs/creatinine 33/1.51. Creatinine improved to 1.08. JEN resolved. Patient also had mild hyponatremia, sodium 134 which is 137 now. Serum magnesium 1.8. 04/11: Repeat CK5 142. 04/12 creatinine 0.85. 3. Hypoglycemia of 58 mg/dL present on admission suspected to be due to glipizide with DM-2 - Give D5 NS @ 125 cc/hr to prevent hypoglycemia. A1c 5.8. 4. Overweight; with BMI of 27.5 TSH normal. 5. Elevated d-dimer of 6.07 present on admission - lower extremity DVT study presumably negative as per liquified natural gas technician 6. Essential hypertension; on losartan - Hold scheduled antihypertensives as patient is hypotensive on Levophed drip 7. Hyperlipidemia - Hold statin for now and check Lipid Profile. 8. Physical debility due to decreased musculoskeletal strength, tremors, postural instability with clinical suspicion of Parkinson disease. Needs to follow neurologist as an outpatient. Other chronic comorbidities include history of tobacco use, chronic Ex-smoker. Osteoarthritis chronic back pain DVT prophylaxis - Lovenox 30 mg sq daily plus SCD's. Stop LMWH if bleeding ensues. Charges/Coding Visit Charges Inpatient E&M: 36439 Subs Hosp L2
--- NOTE | 2024-04-12 12:22 | CASEMGMT ---
Social Work SW spoke w/PT, pt was able to climb 17 stairs. PT recommending a straight cane for pt. OT also had stated pt managed well. SW spoke w/pt, he is agreeable to go home. SW spoke w/pt about home health, pt declined referral. SW spoke w/pt about getting a straight cane, explained insurance does not cover so he would need to purchase one, explained most drug stores carry them. Pt states he goes to [facility] all the time. Pt was going to call his nephew to see if he can pharmacy picking tech pt, as he has pt's keys. No further social service needs, SW did notify the physician that pt is able to go home. SANTOS Cline
--- NOTE | 2024-04-12 12:33 | CASEMGMT ---
[employer] [facility] and [facility] both accepted pt, [facility] declined. SW called son Yung, informed him that [facility] and [facility] accepted and [facility] declined. Son has visits scheduled tomorrow at 10 and 12 for [facility] and [facility], does not want to make a decision until he has visited the facilities. SW gave him the SW on the weekend, Telma's number to call once he has made a decision. SW sent messages via [employer] to both facilities asking if they would be able to take pt on the weekend. SW awaiting a response. SANTOS Cline
--- NOTE | 2024-04-12 14:10 | DS.PCM_ITS ---
Providers Date of Admission: 04/08/24 Date of Discharge: 04/12/24 Primary Care Physician: MICHELE Lyons, ASSISTANT COUNSEL-C Consultations 04/08/24 21:33 Consult: General Surgery Routine Consulting Provider: Lindsey Ritchie Reason for Consult: Sepsis with known Rectal CA. EMERGENT Consult: No MD Notified: Yes Date Notified: 04/08/24 Time Notified: 21:33 Method of Notification: ED Physician Initiated 04/08/24 22:34 Consult: Sedimentationist / Pulmonary Medicine Routine Consulting Provider: Intensivists/Pulmonary Med Reason for Consult: Sepsis EMERGENT Consult: No MD Notified: Yes Date Notified: 04/08/24 Time Notified: 21:27 Method of Notification: Text 04/09/24 10:01 Consult: Oncology/Hematology Routine Consulting Provider: [facility] Reason for Consult: rectal cancer dx 12/2022 EMERGENT Consult: No MD Notified: Yes Date Notified: 04/09/24 Time Notified: 10:01 Method of Notification: Text Reason For Visit: SEPSIS RHABDOMYOLYSIS FALL HYPOGLYCEMIA & CHRONIC Diagnosis Discharge Diagnosis (1) Diarrhea: Status: Acute Code(s): R19.7 - Diarrhea, unspecified Qualifiers: Diarrhea type: unspecified type Qualified Code(s): R19.7 - Diarrhea, unspecified (2) Rhabdomyolysis: Status: Acute Code(s): M62.82 - Rhabdomyolysis Qualifiers: Rhabdomyolysis type: traumatic Encounter type: initial encounter Q ualified Code(s): T79.6XXA - Traumatic ischemia of muscle, initial encounter (3) Hypoglycemia: Status: Acute Code(s): E16.2 - Hypoglycemia, unspecified (4) Overweight (BMI 25.0-29.9): Status: Acute Code(s): E66.3 - Overweight Plan 69-year-old gentleman was admitted with generalized weakness dizziness and fall. History of rectal cancer, decided not for treatment 1. Hypovolemic shock may be due to prolonged diarrhea: Patient is being admitted in ICU. Sepsis was consideration but no discernible source of infection. Stool for C. difficile, enteric pathogen panel negative. Sepsis ruled out. Will discontinue the antibiotic. Currently patient on 1 mcg/min Levophed and is being slowly tapered off. Patient has leukocytosis 24.8 with left side probably inflammatory from diarrhea with untreated rectal adenocarcinoma. Lactic acid normal. UA was negative for WBC 0, bacteria 0 LE and nitrite negative. 04/10: Sepsis ruled out. Patient off Levophed drip. BP stable around 122/50. 04/11: Patient is maintaining his blood pressure good. 04/12: Heart rate and blood pressure are good. medical records manager working on pre-[facility] [place] and group home. 2. Rectal adenocarcinoma: Patient was seen by surgeon Dr. Ritchie. At this time patient has been refusing treatment. Advised to see oncologist and will need pelvic MRI as an outpatient prior to pursuing any treatment. Currently patient does not have rectal pain. Consequences of untreated rectal cancer might result into infection, hemorrhage or rectal obstruction. 04/12: Patient had colonoscopy in December 2022 which reported likely malignant partially obstructing tumor in the rectum. Pathology reported invasive adenocarcinoma with negative microsatellite instability study. Since then it seems patient has seen KARLI Serrato, [facility] but it is not clear. Advised to follow-up with [facility], Dr. Alessandro Alfaro. 3. JEN with rhabdomyolysis of 1,737 mg/dL present on admission after recent Fall - aggressive IV fluid resuscitation. Repeat CK 1410. Admitting BUNs/creatinine 33/1.51. Creatinine improved to 1.08. JEN resolved. Patient also had mild hyponatremia, sodium 134 which is 137 now. Serum magnesium 1.8. 04/11: Repeat CK5 142. 04/12 creatinine 0.85. 3. Hypoglycemia of 58 mg/dL present on admission suspected to be due to glipizide with DM-2 - Give D5 NS @ 125 cc/hr to prevent hypoglycemia. A1c 5.8. 04/12: Discontinue Glipizide as patient was admitted with hypoglycemia. 4. Overweight; with BMI of 27.5 TSH normal. 5. Elevated d-dimer of 6.07 present on admission - lower extremity DVT study presumably negative as per topography technician 6. Essential hypertension; on losartan - Hold scheduled antihypertensives as patient is hypotensive on Levophed drip 04/12: Discharged on lower dose of losartan 25 mg daily. 7. Hyperlipidemia -statin resumed. 8. Physical debility due to decreased musculoskeletal strength, tremors, postural instability with clinical suspicion of Parkinson disease. Needs to follow neurologist as an outpatient. Other chronic comorbidities include history of tobacco use, chronic Ex-smoker. Osteoarthritis chronic back pain DVT prophylaxis - Lovenox 30 mg sq daily plus SCD's. Stop LMWH if bleeding ensues. Discharge medication reconciliation done. Discharge follow-up instructions completed. Discharge process discussed with the patient and all questions were answered to patient's satisfaction. Follow with PCP in 1 to 2 weeks Total time spent, exact 35 minutes on discharge meds reconciliation, examination, coordination of care with nurses and ancillary staff, review of imaging and blood test and discussion with the patient on follow-up instructions. Medications at Discharge Home Medications timolol maleate 0.5 % eye drops 1 drp ophthalmic (eye) BID 04/08/24 losartan 50 mg tablet 25 mg (1/2 x 50 mg) PO DAILY #1 TAB 04/12/24 Physical Exam Narrative Please see physical exam on the same date of progress note. Weight / BMI Weight Weight: 186 lb 8.177 oz Body Mass Index (BMI) 28.3 ABG / Lab / Microbiology Data 04/10/24 06:35 04/12/24 09:12 Laboratory: Laboratory Results - last 24 hr 04/12/24 09:12: Sodium 139, Potassium 3.8, Chloride 106, Carbon Dioxide 29.0, Anion Gap 5, BUN 18, Creatinine 0.85, Estim Creat Clear Calc 86.87, Est GFR (MDRD) Af Amer 116, Est GFR (MDRD) Non-Af 96, BUN/Creatinine Ratio 21.3 H, G lucose 126 H, Calcium 8.9 Microbiology: Microbiology 04/08/24 21:30 Urine, Catheterized Urine Culture - Final Corynebacterium amycolatum 04/08/24 19:06 Blood Culture (Wb) - Right Hand Blood Culture - Preliminary No growth in 48 hours. 04/08/24 19:05 Blood Culture (Wb) - Left Forearm Blood Culture - Preliminary No growth in 48 hours. 04/08/24 22:12 Stool Stool Lactoferrin - Final 04/08/24 22:12 Stool Enteric Bacteriology - Final 04/08/24 22:12 Stool Clostridioides difficile (PCR) - Final 04/08/24 17:58 Mucosa - Nose SARS-CoV-2, Influenza & RSV (PCR) - Final D/C Instructions Discharge Diet: Low fat / Low cholesterol and 1800 Calorie Control Diet Weight Bearing Status: Weight bearing as tolerated Call your doctor if you observe: Fever of 101 or Higher, Coldness, Increased Pain, Numbness or Tingling, Change in Color, Inability to urinate, Inability to have a bowel movement, Shortness of breath, Dizziness, Fainting spells, Swelling in the ankles, Chest pain, Prolonged hiccupping, Increased palpitations (irregular heartbeat) and Calf discomfort DC O2, CPAP, BIPAP Needs Home O2 Discharge instructions: No When: IN 2 WEEKS Meaningful Use Info Meaningful Use Meaningful Use Diagnoses (Choose all that apply): None applicable Ischemic Stroke Statin Dosing Therapy Reference: STATIN DOSE THERAPY REFERENCE: * Patients > 75 years receive moderate or high dose statin therapy. * Patients 75 years or YOUNGER should receive HIGH intensity statin dose unless contraindicated. You will be required to document reason for non-treatment if statin daily dose does not meet guidelines. HIGH DOSE STATIN THERAPY DAILY Atorvastatin > than or = to 40 mg Rosuvastatin > than or = to 20 mg Amlodipine + Atorvastatin > than or = to 2.5/40 mg Ezetimibe + Simvastatin 10/80 mg Simvastatin 80mg Discharge Plan Admission Admit Date/Time: 04/08/24 21:23 Primary Reason for Your Visit: Hypovolemic shock, diarrhea, rectal adenocarcinoma. Attending Provider: Juan Willis Primary Care Provider: Carrie Broussard [facility] Consulting Providers: Stephan Aleman; Lindsey Ritchie; Ron Grande; Mc Hernandez; Keron Yan; Zen Ventura; Stephan Hermosillo; Farhan Kidd; Conor Eastman; Tasha Reyes; Wayne Escudero; Bethel Mcintosh; Nelson Mills; Kaylene Tapia; Sandra Han; Norm,Stanley; Carol,Zac; Austin Mijares; Booker Benson; Parth Vazquez; Michael Judd; Cholo Contreras; Polo Rodriguez; Stephan Cash; Bill Biggs; Jesse Jimenez; Alessandro Alfaro; Claudio Daniels; Jasper Hendrickson; Hemal Douglas; Dale Linares; Irene Moe ASSISTANT COUNSEL Discharge Orders/Prescriptions Prescriptions: Continued timolol maleate 0.5 % drops 1 drp ophthalmic (eye) BID Changed losartan 50 mg tablet 25 mg PO DAILY Qty: 1 0RF Rx Instructions: Start with the lower dose. Discontinued glipizide 5 mg tablet extended release 24hr 5 mg PO DAILY Referrals / Follow Up: Alessandro Alfaro MD [Med Staff - Active Staff] - Within 2 Weeks Polo Crane MD [Non-Staff] - Within 1 Month (Concern for parkinsonism as the patient has postural instability tremors and mild rigidity.) Carrie Broussard [facility], ASSISTANT COUNSEL-C [Primary Care Provider] - Disposition Disposition (needs filled in before D/C Order can be placed): Home, Self Care Charges/Coding Addendum Addendum: Cancel the billing charge for the progress note. Visit Charges Inpatient E&M: 93025 Disch Hosp >30min
[2024-04-12 16:34] VITALS: BP 134/76; PULSE 66; RESP 16; TEMP 36.6; O2SAT 98
== END 2024-04-12 17:00 | disposition home or self-care (01) | DRG 391 ==
LOC: ED 21:27 → ICU 21:30 → PCU 04-10 10:37
PROVIDERS: Internal Medicine Critical Care Medicine; Admitting Provider Internal Medicine; Emergency Provider Emergency Medicine; PCP Nurse Practitioner Family; Visit Provider Internal Medicine
DX: K52.9 Noninfective gastroenteritis and colitis, unspecified (principal); R57.1 Hypovolemic shock; E87.1 Hypo-osmolality and hyponatremia; C20 Malignant neoplasm of rectum; N17.9 Acute kidney failure, unspecified; T79.6XXA Traumatic ischemia of muscle, initial encounter; E11.649 Type 2 diabetes mellitus with hypoglycemia without coma; D64.9 Anemia, unspecified; G20.A1 Parkinson's disease without dyskinesia, without mention of fluctuations; I10 Essential (primary) hypertension; I95.9 Hypotension, unspecified; E78.00 Pure hypercholesterolemia, unspecified; M19.90 Unspecified osteoarthritis, unspecified site; M54.50 Low back pain, unspecified; W19.XXXA Unspecified fall, initial encounter; E66.3 Overweight; T38.3X5A Adverse effect of insulin and oral hypoglycemic [antidiabetic] drugs, initial encounter; R79.1 Abnormal coagulation profile; H40.9 Unspecified glaucoma; G89.29 Other chronic pain; Z53.29 Procedure and treatment not carried out because of patient's decision for other reasons; Z79.84 Long term (current) use of oral hypoglycemic drugs; Z79.899 Other long term (current) drug therapy; Z68.27 Body mass index [BMI] 27.0-27.9, adult; Z98.42 Cataract extraction status, left eye; Z98.890 Other specified postprocedural states; Z91.198 Patient's noncompliance with other medical treatment and regimen for other reason; Z87.891 Personal history of nicotine dependence; Z87.19 Personal history of other diseases of the digestive system; Z98.41 Cataract extraction status, right eye
CPT/HCPCS: 70450; 71275; 72125; 74177; 80048; 80053; 80202; 81001; 82550; 82962; 83036; 83605; 83630; 83735; 83880; 84145; 84443; 84484; 85025; 85379; 87040; 87077; 87086; 87088; 87177; 87209; 87493; 87506; 87631; 93005; 93970; 97116; 97162; 97166; 97530; 97535; 97802; 97803; 99285; Q9967; A4216

== ENCOUNTER 2024-04-15 14:04 | Observation (INO) | payer MEDICARE, SELFPAY ==
[2024-04-15 14:07] VITALS: BP 111/63; PULSE 73; RESP 18; TEMP 36.3; O2SAT 100
[2024-04-15 15:21] VITALS: BMI 27.8
--- NOTE | 2024-04-15 15:41 | ED.RN ---
Spoke with Victorina Mclaughlin , patient's niece. Patient currently doesn't have a POA and they are working on the paperwork for Victorina to become the POA. The niece has been in contact with [facility] for rehab. Fax number [phone].
[2024-04-15 16:30] VITALS: BP 114/95; PULSE 64; RESP 16; O2SAT 96
--- NOTE | 2024-04-15 16:36 | EKG12_ITS ---
Test Reason : WEAKNESS Blood Pressure : */* mmHG Vent. Rate : 71 BPM Atrial Rate : * BPM P-R Int : * ms QRS Dur : 84 ms QT Int : 384 ms P-R-T Axes : * 29 -8 degrees QTcB Int : 417 ms Normal sinus rhythm Abnormal ECG Confirmed by ALLEGRA BLACKMON, MUNDO ([id number]), visual effects editor LEON CASTANON ([id number]) on 04/16/2024 8:00:10 AM Referred By: Confirmed By: MUNDO DINH MD
--- NOTE | 2024-04-15 16:37 | EX.ED.DYSGE1 ---
HPI History of Present Illness Chief Complaint: Weakness Narrative Narrative: Patient is a 69-year-old male with a past medical history of colorectal cancer not actively getting treatment he states he is scared of chemotherapy heard horror stories, hypertension, type 2 diabetes who presents to the emergency department chief complaint of inability to get up off his couch. According to the patient he states that he does live alone and needs to be placed in a facility secondary to his generalized weakness. Patient states that he was diagnosed with colorectal cancer about a year ago and states that he has not started treatment as he is scared of chemotherapy since he started war stories. Patient states that he was here recently and was discharged home. According to triage notes originally patient was refusing recommended treatments at discharge however family member has not gotten accepted to a rehab facility but notes that they are require admission in order to take the patient. [facility] Medical History GI bleed Wears glasses Diabetes Back pain Injury of head and neck Former smoker History of echocardiogram Hypertension Cardiology follow-up encounter Diarrhea Pre-op evaluation Abnormal electrocardiogram Type 2 diabetes mellitus Pure hypercholesterolemia Essential hypertension Home Medications ?Medication ?Instructions ?Recorded ?Last Taken ?Type timolol maleate 0.5 % eye drops 1 drp ophthalmic (eye) BID 04/08/24 04/14/24 History losartan 50 mg tablet 25 mg PO DAILY 04/15/24 04/14/24 History Allergy/AdvReac Type Severity Reaction Status Date / Time No Known Allergies Allergy Verified 04/15/24 14:06 Family History (Updated 04/15/24 @ 18:[address] Thai Robert DO) Mother Diabetes Brother Cancer Surgical History History of bilateral cataract extraction Status post laser trabeculoplasty of eye Social History household members: none Smoking Status: Former smoker alcohol intake: never substance use type: does not use caffeine: No ROS ROS ED ROS Narrative Constitutional: Denies any fevers, chills, headaches, lightness, dizziness Eyes: Denies change in vision double vision blurry vision Cardiovascular: Denies chest pain or palpitations Respiratory: Denies coughing wheezing shortness of breath Abdomen: Left denies abdominal pain nausea vomiting complains of diarrhea : Denies any urinary symptoms Neurological: Complains of generalized weakness denies numbness or tingling Musculoskeletal: Denies back pain Skin: Denies any rashes or lesions EXAM Physical Exam Narrative Exam Narrative: General: Patient lying in bed rest comfortably did not appear to be acute distress Head: Atraumatic, normocephalic Eyes: PERRL bilaterally, EOMI bilaterally, no conjunctival injection noted Neck: Soft, supple, trachea midline Cardiovascular: Regular rate and rhythm no murmurs gallops rubs noted Respiratory: Clear to auscultation bilaterally Abdomen: Soft, nondistended, no tenderness palpation, bowel sounds present x 4 Extremities: +4/5 strength noted in the bilateral upper and lower extremities, no pedal edema on exam Neurological: Patient is following commands knew that he was at [facility] years 2023 Skin: Warm, dry, intact Const Vital Signs: 04/15/24 14:07 04/15/24 15:21 04/15/24 16:30 Temperature 97.3 F L Temperature Source Temporal Pulse Rate 73 64 Respiratory Rate 18 16 Respiratory Effort Short of Breath Respiratory Pattern Normal Blood Pressure 111/63 114/95 H Blood Pressure Mean 79 101 Pulse Ox 100 96 Oxygen Delivery Method Room Air Room Air 04/15/24 18:00 04/15/24 18:33 Temperature 97.9 F Temperature Source Pulse Rate 70 70 Respiratory Rate 16 16 Respiratory Effort Respiratory Pattern Blood Pressure 137/89 H 132/87 H Blood Pressure Mean 105 102 Pulse Ox 97 98 Oxygen Delivery Method Room Air MDM MDM MDM Narrative Medical decision making narrative: Patient is a 69-year-old male who presents to the emerged part with a chief complaint of generalized weakness. Patient will have a workup performed here on the differential diagnose includes Melamin to generalized weakness, ACS, pneumonia, electrolyte abnormality. Once workup is obtained reviewed he will be reevaluated. Patient be given IV fluids. Pulse waiting waiting patient CBC reviewed showed no evidence leukocytosis white blood count normal at 9.8, hemoglobin 11.7, platelet count normal at 285. Patient sodium normal 138, potassium was low at 3.8 indicating hypokalemia he was given 40 mill equivalents of oral supplementation here, creatinine normal at 0.98. Patient's AST and ALT were 3736 respectively, lipase was normal at 27. Patient's EKG reviewed and independently interpreted myself showed a sinus rhythm with a rate of 71 bpm. Patient urinalysis did not reveal any evidence infection. At this point time the patient will require admission to the hospital for generalized weakness and inability to care for himself at home when he lives alone. Discussed case with hospitalist Dr. Robert who accept patient for admission. Patient was notified is agreeable this plan all question concerns answered bedside. Lab Data Labs: Laboratory Results - last 24 hr 04/15/24 04/15/24 15:32 17:02 WBC 9.8 RBC 4.06 L Hgb 11.7 L Hct 35.0 L MCV 86.2 MCH 28.8 MCHC 33.4 RDW Std Deviation 41.9 RDW Coeff of Mariella 13.2 Plt Count 285 MPV 9.9 Immature Gran % (Auto) 0.900 Neut % (Auto) 73.2 H Lymph % (Auto) 13.7 L [place] % (Auto) 11.6 H Eos % (Auto) 0.3 Baso % (Auto) 0.3 Absolute Neuts (auto) 7.2 Absolute Lymphs (auto) 1.34 Nucleated RBC % 0 Sodium 138 Potassium 3.1 L Chloride 103 Carbon Dioxide 30.0 Anion Gap 5 BUN 26 H Creatinine 0.98 Estim Creat Clear Calc 74.70 Est GFR (MDRD) Af Amer 97 Est GFR (MDRD) Non-Af 81 BUN/Creatinine Ratio 26.5 H Glucose 105 Calcium 8.0 L Total Bilirubin 0.60 AST 37 ALT 36 Alkaline Phosphatase 87 Total Protein 6.4 Albumin 2.6 L Globulin 3.8 Albumin/Globulin Ratio 0.7 L Lipase 27 Urine Color Rebeka Urine Clarity Clear Urine pH 6.0 Ur Specific Temple 1.015 Urine Protein 30 H Urine Glucose (UA) Normal Urine Ketones Negative Urine Occult Blood Negative Urine Nitrite Negative Urine Bilirubin Negative Urine Urobilinogen 4 H Ur Leukocyte Esterase Negative Urine RBC 0 SEEN Urine WBC 0 SEEN Ur Squamous Epith Cells 5-10 SEEN Ur Transition Epith Cell 0-5 SEEN Urine Bacteria 0 SEEN Urine Mucus 0 SEEN Discharge Plan Triage Chief Complaint: Weakness ED Provider: Zackary Wilson Dx/Rx/DC Orders Prescriptions: No Action timolol maleate 0.5 % drops 1 drp ophthalmic (eye) BID losartan 50 mg tablet 25 mg PO DAILY Primary Care Provider: Carrie Broussard Referrals: Bobo,Carrie [facility], FINISH PHOTOGRAPHER-C [Primary Care Provider] - Print Language: Romansh
[2024-04-15 16:58] LABS: Absolute Lymphocyte Count 1.34 X10^3/uL (0.83-4.51); Absolute Neutrophil Count 7.2 X10^3/uL (2.0-7.7); Basophil# 0.03 X10^3/uL; Basophil% 0.3 % (0-1); Eosinophil# 0.03 X10^3/uL; Eosinophils% 0.3 % (0-5); Hemoglobin 11.7 g/dL (13.0-16.5); Lymphocyte # 1.34 X10^3/ul (0.83-4.51); Lymphocyte % 13.7 % (19-41); Mean Corp Hgb Conc 33.4 g/dL (32-36); Mean Corpuscular Hgb 28.8 pg (27.0-32.0); Mean Corpuscular Volume 86.2 fL (80-94); Mean Platelet Vol. 9.9 fl (6.2-12.0); Monocyte# 1.14 X10^3/uL; Monocyte% 11.6 % (0-10); NRBC Flagged by Analyzer 0 % (0-5); Neutrophil # 7.18 X10^3/uL (2.7-7.7); Neutrophil % 73.2 % (47-70); Platelet Count 285 K/mm3 (150-450); RBC Distribution Width CV 13.2 % (11.6-14.6); RBC Distribution Width SD 41.9 fl (35.1-43.9); Red Blood Count 4.06 M/mm3 (4.6-6.2); White Blood Count 9.8 K/mm3 (4.4-11.0)
[2024-04-15 17:08] LABS: Bacteria 0 SEEN /hpf (None Seen); Mucous, Urine 0 SEEN /hpf (<or=2+); Red Blood Cells-Urine 0 SEEN /hpf (0-5); White Blood Cells 0 SEEN /hpf (0-5)
[2024-04-15] MEDS: 0.9% Normal Saline (1000mL) 1,000 ML 999 ML IV (17:10)
[2024-04-15 17:14] LABS: ALB/GLOB Ratio 0.7 RATIO (0.9-2.4); AST(SGOT) 37 U/L (15-37); Alanine Aminotransfer ALT/SGPT 36 U/L (16-61); Albumin, Serum 2.6 g/dL (3.2-5.0); Alkaline Phosphatase 87 U/L (45-117); Anion Gap 5 (5-15); BUN 26 mg/dL (7-18); BUN/Creat Ratio 26.5 RATIO (10-20); Chloride 103 mmol/L (98-107); Creatinine, Serum 0.98 mg/dL (0.70-1.30); EST Glomerular Filtration Rate 81 mL/min (>60); Est Glom Filt Rate - Afr Amer 97 mL/min (>60); Globulin 3.8 g/dL (2.2-4.2); Glucose 105 mg/dL (74-106); Lipase 27 U/L (13-75); Potassium 3.1 mmol/L (3.5-5.1); Protein, Total 6.4 g/dL (6.4-8.2); Sodium Level 138 mmol/L (136-145)
[2024-04-15 17:17] LABS: Color, Urine Amber (Yellow); Glucose, Dipstick Normal (Normal); Ketone-Dipstick Negative (Negative); Leukocyte Esterase-Dipstick Negative /ul (Negative); Nitrite-Dipstick Negative (Negative); Occult Blood-Urine Negative /ul (Negative); Protein-Dipstick 30 mg/dl (Negative); Specific Gravity, Urine 1.015 (1.002-1.030); Urine Bilirubin Dipstick Negative (Negative); Urine Clarity Clear (Clear); Urine Urobilinogen 4 mg/dl (Normal)
[2024-04-15 17:35] LABS: Squamous Epithelial Cells - UA 5-10 SEEN /hpf (0-5); Transitional Epithelial - Ur 0-5 SEEN /hpf (0-5)
[2024-04-15 18:00] VITALS: BP 137/89; PULSE 70; RESP 16; O2SAT 97
[2024-04-15] MEDS: Potassium Chloride Oral Soln 20 MEQ/15 ML UDC 40 MEQ PO (18:12)
--- NOTE | 2024-04-15 18:14 | HP.PCM.HOS_ITS ---
[facility] - General General Date of Service: 04/15/24 Chief Complaint: weakness HPI Narrative KRYSTA BRUNSON, is a 69 M who presents with weakness. Patient was just admitted and discharged from the to the . Patient had hypovolemic shock due to prolonged profuse diarrhea. Patient underwent an infectious workup for his diarrhea that came back unremarkable. Since being home, patient is weak and unable to get out of his recliner. Lives by himself. Patient has a history of rectal adenocarcinoma that was diagnosed in December 2022 but he is elected not to proceed with treatment due to concerns for the chemotherapy. He has been having profuse diarrhea for months now. States has not been changed but he modifies his dietary consumption because whenever he eats the diarrhea gets worse. He states that he has not tried anything to help with his diarrhea. Patient was discharged to home. Patient declined home health care services though they were [place] at [place] [facility] facilities during that stay. Patient is here with his niece, Victorina, who is very concerned about the patient being by himself. [facility] Medical History GI bleed Wears glasses Diabetes Back pain Injury of head and neck Former smoker History of echocardiogram Hypertension Cardiology follow-up encounter Diarrhea Pre-op evaluation Abnormal electrocardiogram Type 2 diabetes mellitus Pure hypercholesterolemia Essential hypertension Home Medications ?Medication ?Instructions ?Recorded ?Last Taken ?Type timolol maleate 0.5 % eye drops 1 drp ophthalmic (eye) BID 04/08/24 04/14/24 History losartan 50 mg tablet 25 mg PO DAILY 04/15/24 04/14/24 History Allergy/AdvReac Type Severity Reaction Status Date / Time No Known Allergies Allergy Verified 04/15/24 14:06 Family History (Updated 04/15/24 @ 18:[address] Thai Robert DO) Mother Diabetes Brother Cancer Surgical History History of bilateral cataract extraction Status post laser trabeculoplasty of eye Social History household members: none Smoking Status: Former smoker alcohol intake: never substance use type: does not use caffeine: No ROS ROS Narrative No fever or chills. No dizziness nor lightheadedness. All review of systems were negative except as mentioned above in the history of present illness and the other review of systems. Vital Signs Vital Signs Vital Signs: 04/15/24 14:07 04/15/24 15:21 04/15/24 16:30 Temperature 36.3 C L Temperature Source Temporal Pulse Rate 73 64 Respiratory Rate 18 16 Respiratory Effort Short of Breath Respiratory Pattern Normal Blood Pressure 111/63 114/95 H Blood Pressure Mean 79 101 Pulse Ox 100 96 Oxygen Delivery Method Room Air Room Air 04/15/24 18:00 Temperature Temperature Source Pulse Rate 70 Respiratory Rate 16 Respiratory Effort Respiratory Pattern Blood Pressure 137/89 H Blood Pressure Mean 105 Pulse Ox 97 Oxygen Delivery Method Room Air Weight Weight: 83 kg Body Mass Index (BMI) 27.8 Physical Exam Const alert and no apparent distress Constitutional Narrative: Nontoxic. Afebrile. HEENT normocephalic, head/scalp atraumatic and moist oral mucous membranes HEENT Narrative: Edentulous. No thrush Eyes Eyes Narrative: Glasses. No icterus. Neck no lymphadenopathy and supple Resp normal respiratory effort, no retractions, no use of accessory muscles and clear to auscultation bilaterally Cardio regular rate, regular rhythm, S1 normal heart sound and S2 normal heart sound GI normal to inspection, nondistended, normoactive bowel sounds, soft to palpation, non-tender and non-distended GI Narrative: Superficial exam of his rectum showed no obvious masses. No ulcerations or sores. Extremity normal to inspection and no clubbing, cyanosis or edema Neuro moves all extremities and no focal motor deficits Sensorium / Orientation: awake and alert Psych Psych Narrative: Flat affect Results Lab / Micro Data Attestation: I reviewed the patient's lab results. 04/15/24 15:32 04/15/24 15:32 Labs: Laboratory Results - last 24 hr 04/15/24 15:32: WBC 9.8, RBC 4.06 L, Hgb 11.7 L, Hct 35.0 L, MCV 86.2, MCH 28.8, MCHC 33.4, RDW Std Deviation 41.9, RDW Coeff of Mariella 13.2, Plt Count 285, MPV 9.9, Immature Gran % (Auto) 0.900, Neut % (Auto) 73.2 H, Lymph % (Auto) 13.7 L, Scurry % (Auto) 11.6 H, Eos % (Auto) 0.3, Baso % (Auto) 0.3, Absolute Neuts (auto) 7.2, Absolute Lymphs (auto) 1.34, Nucleated RBC % 0, Sodium 138, Potassium 3.1 L , Chloride 103, Carbon Dioxide 30.0, Anion Gap 5, BUN 26 H, Creatinine 0.98, Estim Creat Clear Calc 74.70, Est GFR (MDRD) Af Amer 97, Est GFR (MDRD) Non-Af 81, BUN/Creatinine Ratio 26.5 H, Glucose 105, Calcium 8.0 L, Total Bilirubin 0.60, AST 37, ALT 36, Alkaline Phosphatase 87, Total Protein 6.4, Albumin 2.6 L, Globulin 3.8, Albumin/Globulin Ratio 0.7 L, Lipase 27 04/15/ 17:02: Urine Color Rebeka, Urine Clarity Clear, Urine pH 6.0, Ur Specific Laurel 1.015, Urine Protein 30 H, Urine Glucose (UA) Normal, Urine Ketones Negative, Urine Occult Blood Negative, Urine Nitrite Negative, Urine Bilirubin Negative, Urine Urobilinogen 4 H, Ur Leukocyte Esterase Negative, Urine RBC 0 SEEN, Urine WBC 0 SEEN, Ur Squamous Epith Cells 5-10 SEEN, Ur Transition Epith Cell 0-5 SEEN, Urine Bacteria 0 SEEN, Urine Mucus 0 SEEN Assessment & Plan Assessment/Plan (1) Weakness: PLAN: Patient has been weak for some time but patient is unable to care for himself at home unable to get out of his recliner chair. PT OT evaluate and treat. The patient's niece, Victorina, states that the patient has been accepted at the [facility] already. Informed her that we will need to get insurance authorization for him to go over there. She states that he has Medicare advantage plan with [employer]. She tells me that he is not straight Medicare. (2) Diarrhea: QUALIFIERS: Diarrhea type: unspecified type Qualified Code(s): R 19.7 - Diarrhea, unspecified PLAN: Chronic. Patient underwent an infectious workup last admission including C. difficile that was negative. His niece, Victorina, is a former nurse and who is familiar with C. difficile and says it does not have that odor. Seems less likely that his C. difficile being that status changed from last admission. I do not feel checking for C. difficile would be necessary at this time. Will start as needed loperamide to see if that helps. (3) Hypokalemia: PLAN: Secondary to diarrhea and poor dietary intake. Replaced in the emergency room. Follow-up in the morning and check a magnesium. PLAN: Plan Rectal adenocarcinoma: Diagnosed December 2022. Previously the patient has declined any treatment due to fear of the chemotherapy. The patient's brother had nasopharyngeal carcinoma and did not tolerate the therapy which I think is what is contributing to his apprehension about taking chemotherapy. The short course of the encounter the patient went from wanting no chemotherapy being open to the option of having that done. They did recommend an MRI of his pelvis during last admission. Told his niece that that would need to be done as outpatient. Patient has a follow-up appointment at [facility] on the . VTE prophylaxis with enoxaparin CODE STATUS: Addressed with the patient and his niece. Patient is to be full code. Charges/Coding Visit Charges Inpatient E&M: 18491 Init Hosp L2
--- NOTE | 2024-04-15 18:29 | CASEMGMT ---
Social Work SW introduced self to patient and explained role with [facility]. Patient was laying in bed, niece and sister were at bedside. Patient gave permission for niece and sister to participate in conversation. Patient had recent admission at [facility] 04/09/2024-04/12/2024, SW confirmed that all information from previous RN CM Assessment remains accurate. Since discharge home, patient has become increasingly weak, having trouble getting up from chair and getting to the bathroom in time resulting in incontinent episodes. Patient and family are interested in patient being admitted to [facility] for a rehabilitation stay after discharge from [facility] should patient qualify for SNF admission. Geneva Cowart, GAS PLANT OPERATOR, SHOE LINING FITTER
[2024-04-15 18:33] VITALS: BP 132/87; PULSE 70; RESP 16; TEMP 36.6; O2SAT 98
[2024-04-15 19:44] VITALS: BMI 27.1
[2024-04-15] MEDS: Timolol 0.5% 5ML OPTH.BTL 1 DRP OPHTHALMIC (20:57)
[2024-04-15] MEDS: Loperamide 2 MG Capsule 4 MG PO (20:57)
[2024-04-15 21:29] VITALS: BP 114/56; PULSE 64; RESP 16; TEMP 37; O2SAT 97
[2024-04-16] VITALS (7 sets, daily range): BP systolic 86–108; BP diastolic 36–57; PULSE 57–63; RESP 16–18; TEMP 36.8–36.9; O2SAT 94–99
[2024-04-16] MEDS: 0.9% Saline Lock 10 ML Syringe IV (04:21)
[2024-04-16] MEDS: 0.9% Normal Saline (1000mL) 1,000 ML 999 ML IV (04:22)
[2024-04-16] MEDS: 0.9% Normal Saline (1000mL) 1,000 ML 200 ML IV ×3 (04:24→14:59)
[2024-04-16 06:10] LABS: Anion Gap 2 (5-15); BUN 16 mg/dL (7-18); BUN/Creat Ratio 24.8 RATIO (10-20); Calcium,Total 7.5 mg/dL (8.5-10.1); Chloride 111 mmol/L (98-107); Creatinine, Serum 0.64 mg/dL (0.70-1.30); EST Glomerular Filtration Rate 131 mL/min (>60); Est Glom Filt Rate - Afr Amer 158 mL/min (>60); Estimated Creatinine Clearance 84.31 ml/min; Glucose 66 mg/dL (74-106); Magnesium 1.7 mg/dL (1.6-2.6); Potassium 3.1 mmol/L (3.5-5.1); Sodium Level 138 mmol/L (136-145)
--- NOTE | 2024-04-16 07:15 | PCM.PN.HOSP ---
Reason for Visit Reason for Visit: Diagnoses Hypokalemia (04/15/24) Diarrhea, unspecified (04/15/24) Weakness (04/15/24) Objective Data Objective Data Vital Signs: Vital Signs Temp Pulse Resp BP Pulse Ox O2 Del Method 98.5 F 61 16 106/43 L 96 Room Air 04/16/24 06:16 04/16/24 06:16 04/16/24 06:16 04/16/24 06:16 04/16/24 06:16 04/16/24 06:16 Oxygen Delivery Method Room Air Weight: 178 lb 3.2 oz Body Mass Index (BMI) 27.1 Intake & Output: Intake and Output for Last 24 Hours 04/14/24 04/15/24 04/16/24 23:59 23:59 23:59 Intake Total 1150 / 1150 1000 / 1000 Balance 1150 / 1150 1000 / 1000 Lab / Micro Data 04/15/24 15:32 04/16/24 05:31 Labs: Laboratory Results - last 24 hr 04/15/24 15:32: WBC 9.8, RBC 4.06 L, Hgb 11.7 L, Hct 35.0 L, MCV 86.2, MCH 28.8, MCHC 33.4, RDW Std Deviation 41.9, RDW Coeff of Mariella 13.2, Plt Count 285, MPV 9.9, Immature Gran % (Auto) 0.900, Neut % (Auto) 73.2 H, Lymph % (Auto) 13.7 L, [place] % (Auto) 11.6 H, Eos % (Auto) 0.3, Baso % (Auto) 0.3, Absolute Neuts (auto) 7.2, Absolute Lymphs (auto) 1.34, Nucleated RBC % 0, Sodium 138, Potassium 3.1 L, Chloride 103, Carbon Dioxide 30.0, Anion Gap 5, BUN 26 H, Creatinine 0.98, Estim Creat Clear Calc 74.70, Est GFR (MDRD) Af Amer 97, Est GFR (MDRD) Non-Af 81, BUN/Creatinine Ratio 26.5 H, Glucose 105, Calcium 8.0 L, Total Bilirubin 0.60, AST 37, ALT 36, Alkaline Phosphatase 87, Total Protein 6.4, Albumin 2.6 L, Globulin 3.8, Albumin/Globulin Ratio 0.7 L, Lipase 27 04/15/24 17:02: Urine Color Rebeka, Urine Clarity Clear, Urine pH 6.0, Ur Specific Knipp[place] 1.015, Urine Protein 30 H, Urine Glucose (UA) Normal, Urine Ketones Negative, Urine Occult Blood Negative, Urine Nitrite Negative, Urine Bilirubin Negative, Urine Urobilinogen 4 H, Ur Leukocyte Esterase Negative, Urine RBC 0 SEEN, Urine WBC 0 SEEN, Ur Squamous Epith Cells 5-10 SEEN, Ur Transition Epith Cell 0-5 SEEN, Urine Bacteria 0 SEEN, Urine Mucus 0 SEEN 04/16/24 05:31: Sodium 138, Potassium 3.1 L, Chloride 111 H, Carbon Dioxide 25.0, Anion Gap 2 L, BUN 16, Creatinine 0.64 L, Estim Creat Clear Calc 84.31, Est GFR (MDRD) Af Amer 158, Est GFR (MDRD) Non-Af 131, BUN/Creatinine Ratio 24.8 H, Glucose 66 L, Calcium 7.5 L, Magnesium 1.7 Micro: Microbiology 04/15/24 17:02 Stool Enteric Bacteriology - Final Norovirus Physical Exam Narrative Seen and examined. Patient was discharged as he did good on the physical therapy evaluation. Still has diarrhea. Stool sometimes mixed with the blood. No abdominal pain. Stool positive for norovirus. On contact isolation. Physical exam Physical exam General: Alert, Oriented x3, Cooperative. BMI 27.1 kg/m? HEENT: Atraumatic, PERRLA, EOMI, Normocephalic Oral: No Gingival or Mucosal Lesions/ Ulcerations Neck: Supple, No JVD, Negative Carotid Bruits Chest wall/Lungs: Air entry diminished in bilateral lung bases. No crepitation/rhonchi Cardiovascular: Regular rate, Regular Rhythm, Normal S1, Normal S2, No M/G/R Abdomen: Bowel Sounds sluggish, Soft, Non Tender, Non-Distended. : No dysuria. No renal angle tenderness. No suprapubic tenderness. Extremities: No edema, Capillary Refill Less than 3 Seconds Skin: No rashes, No breakdown Musculoskeletal: No Tenderness to Palpation of Joints or Extremities. Increased stiffness of knees and hip joints. Neurological: Cranial nerves II-XII grossly intact, DTR 2+/4.No acute focal neurological deficit. Psych/Mental Status: Normal Affect, Appropriate. Assessment & Plan Assessment/Plan (1) Weakness: PLAN: Patient has been weak for some time but patient is unable to care for himself at home unable to get out of his recliner chair. PT OT evaluate and treat. Authorization obtained. The patient's niece, Victorina, states that the [facility]. (2) Diarrhea: QUALIFIERS: Diarrhea type: unspecified type Qualified Code(s): R19.7 - Diarrhea, unspecified PLAN: Chronic. Probably from rectal adenocarcinoma. Enteric pathogen is positive for norovirus. Stool for lactoferrin, C. difficile and enteric pathogen panel were negative on 04/08. (3) Hypokalemia: PLAN: Secondary to diarrhea and poor dietary intake. Replaced in the emergency room. Repeat potassium still low 3.1. Magnesium 1.7. Electrolytes getting replaced PLAN: Plan Rectal adenocarcinoma: Diagnosed December 2022. Previously the patient has declined any treatment due to fear of the chemotherapy. The patient's brother had nasopharyngeal carcinoma and did not tolerate the therapy which I think is what is contributing to his apprehension about taking chemotherapy. The short course of the encounter the patient went from wanting no chemotherapy being open to the option of having that done. They did recommend an MRI of his pelvis during last admission. Told his niece that that would need to be done as outpatient. Patient has a follow-up appointment at [facility] on the . VTE prophylaxis with enoxaparin CODE STATUS: Addressed with the patient and his niece. Patient is to be full code. Charges/Coding Visit Charges Inpatient E&M: 54851 Subs Hosp L2
[2024-04-16] MEDS: Pantoprazole Sodium 40 MG Tablet PO (08:48)
[2024-04-16] MEDS: Enoxaparin 40 MG/0.4 ML Syringe SC (08:48)
[2024-04-16] MEDS: Timolol 0.5% 5ML OPTH.BTL 1 DRP OPHTHALMIC ×2 (08:48→19:55)
[2024-04-16] MEDS: Loperamide 2 MG Capsule PO ×2 (11:50→19:55)
--- NOTE | 2024-04-16 12:44 | CHAPLAIN ---
Type of Pastoral Visit _x__ Initial Visit ___ Follow-up Visit ___ On-call Visit ___ General Patient Visit ___ Spiritual Assessment ___ Family Conference ___ Bereavement ___ Rapid Response ___ Code Blue ___ Other (describe below) Pastoral Care Referral From _x__ Patient ___ Family ___ Nurse ___ Physician ___ Chief Medical Director ___ Automotive Services Manager ___ Other (describe below) Sacrament/Intervention _x__ Active listening ___ Anointing ___ Sabianist ___ Bereavement ___ Communion _x__ Harleen exploration ___ _x__ Life review _x__ Prayer ___ Reconciliation ___ Sacrament of Sick _x__ Supportive presence ___ Wedding ___ Other (describe below) Pastoral Comments patient is welcoming and identifies himself as a believer; pt states that he has not had health issues throughout his life so this is something new to deal with; pt also reveals that he has had a divorce and a of son and a brother in the last few months; pt is encouraged to remember what it is that has helped him deal with adversity and challenges in the past and how he has navigated those events; pt states that harleen is the most important part of his journey and coping; pt has some regret in not staying more connected to his children earlier; pt leads into more of a discussion about spiritual matters and life issues; reflection, affirmation, prayer, and presence offered and received; pt expresses appreciation for spiritual care support
--- NOTE | 2024-04-16 13:24 | CASEMGMT ---
Social Work- SW met with pt to discuss preferences at d/c. SW introduced self and role. Pt reports that he would like referral to [facility]. SW provided education on SNF process and guidelines for therapy needs. SW discussed home care supports if pt does not qualify for SNF. CHANDLER advised of referral request. [facility] remains available to follow. LINO Daley
--- NOTE | 2024-04-16 14:39 | CASEMGMT ---
Addendum entered by Indy Schmid 04/16/24 14:51: [facility] accepted and will submit for precert. SW updated. Indy Schmid DC Planning Asst. Original Note: Discharge Planning Referral sent to [facility] at [place]. Indy Schmid DC Planning Asst.
--- NOTE | 2024-04-16 15:21 | CASEMGMT ---
Discharge Planning [facility] has obtained auth to admit. SW and physician updated. Indy Schmid DC Planning Asst.
--- NOTE | 2024-04-16 16:10 | CASEMGMT ---
Plan for pt to dc tomorrow per hospitalist. Precert received per dc leasing assistant.
--- NOTE | 2024-04-16 16:13 | CASEMGMT ---
Discharge Planning [facility] notified that pt will likely be discharge 04/17/24. Green sheet completed and given to SW. Indy Schmid DC Planning Asst.
--- NOTE | 2024-04-16 16:35 | CASEMGMT ---
Met with patient to complete GABRIEL form. GABRIEL form explained to patient who voiced understanding and signed form. Original form placed in pt?s chart and copy provided to patient. Indy Schmid, Discharge Planning Asst
[2024-04-16] MEDS: Potassium Chloride Oral Tablet 20 MEQ 40 MEQ PO (16:36)
[2024-04-16] MEDS: Magnesium Chloride 64 MG Delay Rel.Tablet 128 MG PO ×2 (16:36→19:55)
--- NOTE | 2024-04-16 17:35 | CASEMGMT ---
Social Work- SW completed PASRR. SW placed PASRR, transport, and green sheet on chart in the event that pt d/c over the holiday. Pt has precert and can d/c when medically ready. Plan: [facility]; when medically ready LINO Daley
[2024-04-17 02:26] VITALS: BP 106/49; PULSE 65; RESP 16; TEMP 36.9; O2SAT 97
[2024-04-17 06:33] LABS: Absolute Lymphocyte Count 1.63 X10^3/uL (0.83-4.51); Absolute Neutrophil Count 4.3 X10^3/uL (2.0-7.7); Basophil# 0.03 X10^3/uL; Basophil% 0.4 % (0-1); Eosinophil# 0.08 X10^3/uL; Eosinophils% 1.2 % (0-5); Hemoglobin 9.5 g/dL (13.0-16.5); Lymphocyte # 1.63 X10^3/ul (0.83-4.51); Lymphocyte % 24.2 % (19-41); Mean Corp Hgb Conc 33.9 g/dL (32-36); Mean Corpuscular Hgb 29.2 pg (27.0-32.0); Mean Corpuscular Volume 86.2 fL (80-94); Mean Platelet Vol. 9.6 fl (6.2-12.0); Monocyte% 10.4 % (0-10); NRBC Flagged by Analyzer 0 % (0-5); Neutrophil # 4.27 X10^3/uL (2.7-7.7); Neutrophil % 63.4 % (47-70); Platelet Count 223 K/mm3 (150-450); RBC Distribution Width CV 13.5 % (11.6-14.6); RBC Distribution Width SD 42.5 fl (35.1-43.9); Red Blood Count 3.25 M/mm3 (4.6-6.2); White Blood Count 6.7 K/mm3 (4.4-11.0)
[2024-04-17 08:03] LABS: Anion Gap 5 (5-15); BUN 11 mg/dL (7-18); BUN/Creat Ratio 14.8 RATIO (10-20); Calcium,Total 7.7 mg/dL (8.5-10.1); Chloride 112 mmol/L (98-107); Creatinine, Serum 0.74 mg/dL (0.70-1.30); EST Glomerular Filtration Rate 111 mL/min (>60); Est Glom Filt Rate - Afr Amer 134 mL/min (>60); Estimated Creatinine Clearance 84.31 ml/min; Glucose 111 mg/dL (74-106); Magnesium 1.6 mg/dL (1.6-2.6); Phosphorus 1.9 mg/dL (2.5-4.9); Potassium 3.6 mmol/L (3.5-5.1); Sodium Level 140 mmol/L (136-145)
--- NOTE | 2024-04-17 09:12 | PCM.TXEXTCAR ---
Diet Diet Order/Speech Therapy: 04/15/24 19:55 Diet: Regular - General Food consistency:: Regular Liquid Consistency:: Regular/Thin Routine Orders/Code Status Code Status: Full Code DC O2, CPAP, BIPAP needs Home O2 Discharge instructions: No Therapies Physical Therapy: Eval and Treat Occupational Therapy: Eval and Treat Problem/Diagnosis (1) Weakness: Status: Acute Code(s): R53.1 - Weakness (2) Diarrhea: Status: Acute Code(s): R19.7 - Diarrhea, unspecified (3) Hypokalemia: Status: Acute Code(s): E87.6 - Hypokalemia Plan Patient is a 69-year-old gentleman diagnosed with rectal adenocarcinoma in December 2022 who was declined chemotherapy due to fear as a result of brothers experience presented to the emergency with progressive generalized weakness. 1. Physical deconditioning ? Requested for PT OT eval and social service worker to assist with discharge planning. Patient was discharged to senior living facility once insurance precertification was obtained 2. Rectal adenocarcinoma ? Patient was seen in consultation by oncology plan is for patient to follow-up 3. Shock ? Secondary to hypovolemic shock. Sepsis was ruled out 4. Acute nontraumatic rhabdomyolysis ? Improved with IV hydration 5. Acute diarrhea ? Infectious etiology ruled out patient treated symptomatically with loperamide 6. Essential hypertension ? Patient was on losartan held on admission resumed on discharge 7. DVT prophylaxis ? Treated with Lovenox 8. Acute kidney injury ? Secondary to nontraumatic rhabdomyolysis improved with IV hydration Allergies/Procedures Done in Hospital Allergies No Known Allergies Allergy (Verified 04/15/24 14:06) Type of Care/Length of Stay Estimated LOS: Convalescent Care Less Than 30 days Type of Care Needed: Skilled Rehab Potential: Good Prognosis: Good Additional Orders/Day of Discharge Day of Discharge: 04/17/24 Dietary and Speech Recommendations Dietitian Recommendations/Changes: Continue liberal regular diet and 120ml ensure plus high protein TID with medpass. If BG becomes consistently elevated, recommend adding a consistent carbohydrate diet. Will adjust ONS as needed. Reviewed and approved by Eli Liu RDN, LD. Discharge Plan Admission Admit Date/Time: 04/15/24 18:10 Attending Provider: Stephan Enciso Primary Care Provider: Carrie Broussard [facility] Consulting Providers: Thai Robert; Juan Willis Discharge Orders/Prescriptions Prescriptions: New potassium chloride 20 mEq Tablet,Er Particles/Crystals 40 meq PO DAILY Qty: 0 0RF pantoprazole 40 mg Tablet,Delayed Release (Dr/Ec) 40 mg PO DAILY Qty: 0 0RF magnesium chloride [Mag 64] 64 mg Tablet,Delayed Release (Dr/Ec) 128 mg PO BID Qty: 0 0RF acetaminophen 325 mg Tablet 650 mg PO Q6H PRN PRN (Reason: Pain 1-10 Or Fever >100.7) Qty: 0 0RF loperamide 2 mg Capsule 2 mg PO Q4H PRN PRN (Reason: DIARRHEA) Qty: 0 0RF Ensure Plus High Protein 0.08 gram-1.5 kcal/mL Liquid 120 ml PO TIDCM Qty: 0 0RF Continued timolol maleate 0.5 % drops 1 drp ophthalmic (eye) BID losartan 50 mg tablet 25 mg PO DAILY Referrals / Follow Up: Carrie Broussard [place], CHAIRMAN-C [Primary Care Provider] - Disposition Disposition (needs filled in before D/C Order can be placed): Long-Term Facility (2) Diarrhea Qualifiers: Diarrhea type: unspecified type Qualified Code(s): R19.7 - Diarrhea, unspecified
--- NOTE | 2024-04-17 09:15 | DS.PCM_ITS ---
Providers Date of Admission: 04/15/24 Date of Discharge: 04/17/24 Primary Care Physician: Carrie Broussard [facility], [employer] APPLICATION ANALYST-C Reason For Visit: WEAKNESS Diagnosis Discharge Diagnosis (1) Weakness: Status: Acute Code(s): R53.1 - Weakness (2) Diarrhea: Status: Acute Code(s): R19.7 - Diarrhea, unspecified Qualifiers: Diarrhea type: unspecified type Qualified Code(s): R19.7 - Diarrhea, unspecified (3) Hypokalemia: Status: Acute Code(s): E87.6 - Hypokalemia Plan Patient is a 69-year-old gentleman diagnosed with rectal adenocarcinoma in December 2022 who was declined chemotherapy due to fear as a result of brothers experience presented to the emergency with progressive generalized weakness. 1. Physical deconditioning ? Requested for PT OT eval and director of social work to assist with discharge planning. [facility] once insurance precertification was obtained 2. Rectal adenocarcinoma ? Patient was seen in consultation by oncology plan is for patient to follow-up 3. Shock ? Secondary to hypovolemic shock. Sepsis was ruled out 4. Acute nontraumatic rhabdomyolysis ? Improved with IV hydration 5. Acute diarrhea ? Infectious etiology ruled out patient treated symptomatically with loperamide 6. Essential hypertension ? Patient was on losartan held on admission resumed on discharge 7. DVT prophylaxis ? Treated with Lovenox 8. Acute kidney injury ? Secondary to nontraumatic rhabdomyolysis improved with IV hydration Medications at Discharge Home Medications timolol maleate 0.5 % eye drops 1 drp ophthalmic (eye) BID 04/08/24 losartan 50 mg tablet 25 mg PO DAILY 04/15/24 acetaminophen 325 mg tablet 650 mg (2 x 325 mg) PO Q6H PRN PRN Pain 1-10 Or Fever >100.7 #0 tabs 04/17/24 food supplemt, lactose-reduced 0.08 gram-1.5 kcal/mL oral liquid (Ensure Plus High Protein) 120 ml PO TIDCM #0 mL 04/17/24 loperamide 2 mg capsule 2 mg PO Q4H PRN PRN DIARRHEA #0 caps 04/17/24 magnesium chloride 64 mg (magnesium chloride) tablet,delayed release (Mag 64) 128 mg (2 x 64 mg) PO BID #0 tabs 04/17/24 pantoprazole 40 mg tablet,delayed release 40 mg PO DAILY #0 tabs 04/17/24 potassium chloride 20 mEq tablet,extended release(part/cryst) 40 meq (2 x 20 mEq) PO DAILY #0 tabs 04/17/24 Hospital Course Summary of Care Provided Minutes Spent on Discharge: 32 Physical Exam Narrative GENERAL: cooperative HEENT: Atraumatic; normocephalic EYES; Anicteric, Normal Conjunctiva NECK; supple, normal thyroid, RESPIRATORY: Diminished to auscultation CARDIOVASCULAR: Regular S1 S2, GI: soft, normoactive bowel sounds, : No Renal angle tenderness; EXTREMITIES: No edema, no clubbing, MUSCULOSKELETAL: no muscle wasting NEURO: Awake; no lateralizing signs. SKIN: No Rash PSYCH; Flat affect Weight / BMI Weight Weight: 80.83 kg Body Mass Index (BMI) 27.1 ABG / Lab / Microbiology Data 04/17/24 06:05 04/17/24 06:05 Laboratory: Laboratory Results - last 24 hr 04/17/24 06:05: WBC 6.7, RBC 3.25 L, Hgb 9.5 L, Hct 28.0 L, MCV 86.2, MCH 29.2, MCHC 33.9, RDW Std Deviation 42.5, RDW Coeff of Mariella 13.5, Plt Count 223, MPV 9.6, Immature Gran % (Auto) 0.400, Neut % (Auto) 63.4, Lymph % (Auto) 24.2, [place] % (Auto) 10.4 H, Eos % (Auto) 1.2, Baso % (Auto) 0.4, Absolute Neuts (auto) 4.3, Absolute Lymphs (auto) 1.63, Nucleated RBC % 0, Sodium 140, Potassium 3.6, C hloride 112 H, Carbon Dioxide 23.0, Anion Gap 5, BUN 11, Creatinine 0.74, Estim Creat Clear Calc 84.31, Est GFR (MDRD) Af Amer 134, Est GFR (MDRD) Non-Af 111, BUN/Creatinine Ratio 14.8, Glucose 111 H, Calcium 7.7 L, Phosphorus 1.9 L, Magnesium 1.6 Microbiology: Microbiology 04/15/24 17:02 Stool Enteric Bacteriology - Final Norovirus D/C Instructions Discharge Diet: No restrictions Discharge Activity: Return to Normal Activity Call your doctor if you observe: Fever of 101 or Higher, Shortness of breath, Fainting spells and Chest pain DC O2, CPAP, BIPAP Needs Home O2 Discharge instructions: No Meaningful Use Info Meaningful Use Meaningful Use Diagnoses (Choose all that apply): None applicable Ischemic Stroke Statin Dosing Therapy Reference: STATIN DOSE THERAPY REFERENCE: * Patients > 75 years receive moderate or high dose statin therapy. * Patients 75 years or YOUNGER should receive HIGH intensity statin dose unless contraindicated. You will be required to document reason for non-treatment if statin daily dose does not meet guidelines. HIGH DOSE STATIN THERAPY DAILY Atorvastatin > than or = to 40 mg Rosuvastatin > than or = to 20 mg Amlodipine + Atorvastatin > than or = to 2.5/40 mg Ezetimibe + Simvastatin 10/80 mg Simvastatin 80mg Discharge Plan Admission Admit Date/Time: 04/15/24 18:10 Attending Provider: Stephan Enciso Primary Care Provider: Carrie Broussard Consulting Providers: Thai Robert; Juan Willis Discharge Orders/Prescriptions Prescriptions: New potassium chloride 20 mEq Tablet,Er Particles/Crystals 40 meq PO DAILY Qty: 0 0RF pantoprazole 40 mg Tablet,Delayed Release (Dr/Ec) 40 mg PO DAILY Qty: 0 0RF magnesium chloride [Mag 64] 64 mg Tablet,Delayed Release (Dr/Ec) 128 mg PO BID Qty: 0 0RF acetaminophen 325 mg Tablet 650 mg PO Q6H PRN PRN (Reason: Pain 1-10 Or Fever >100.7) Qty: 0 0RF loperamide 2 mg Capsule 2 mg PO Q4H PRN PRN (Reason: DIARRHEA) Qty: 0 0RF Ensure Plus High Protein 0.08 gram-1.5 kcal/mL Liquid 120 ml PO TIDCM Qty: 0 0RF Continued timolol maleate 0.5 % drops 1 drp ophthalmic (eye) BID losartan 50 mg tablet 25 mg PO DAILY Referrals / Follow Up: Carrie Broussard, IN[employer] APPLICATION ANALYST-C [Primary Care Provider] - Within 2 Weeks Bill Biggs MD [Med Staff - Active Staff] - Within 2 Weeks Disposition Disposition (needs filled in before D/C Order can be placed): Senior Living Facility Charges/Coding Visit Charges Inpatient E&M: 36188 Disch Hosp >30min
[2024-04-17 09:49] VITALS: BP 136/79; PULSE 75; RESP 16; TEMP 36.8; O2SAT 97
[2024-04-17] MEDS: Magnesium Chloride 64 MG Delay Rel.Tablet 128 MG PO (10:02)
[2024-04-17] MEDS: Enoxaparin 40 MG/0.4 ML Syringe SC (10:02)
[2024-04-17] MEDS: Potassium Chloride Oral Tablet 20 MEQ 40 MEQ PO (10:03)
[2024-04-17] MEDS: Pantoprazole Sodium 40 MG Tablet PO (10:03)
[2024-04-17] MEDS: Timolol 0.5% 5ML OPTH.BTL 1 DRP OPHTHALMIC (10:06)
[2024-04-17] MEDS: Ensure Plus High Protein 120 ML LIQUID PO (12:59)
== END 2024-04-17 14:55 | disposition skilled nursing facility (03) ==
LOC: ED 18:43 → MS3 19:25
PROVIDERS: Internal Medicine; Emergency Provider Emergency Medicine; PCP Nurse Practitioner Family; Visit Provider Internal Medicine
DX: R53.1 Weakness (principal); R57.1 Hypovolemic shock; C20 Malignant neoplasm of rectum; E11.9 Type 2 diabetes mellitus without complications; E87.6 Hypokalemia; E78.00 Pure hypercholesterolemia, unspecified; A08.11 Acute gastroenteropathy due to Norwalk agent; Z87.891 Personal history of nicotine dependence; I10 Essential (primary) hypertension; Z79.899 Other long term (current) drug therapy; N17.9 Acute kidney failure, unspecified; M62.82 Rhabdomyolysis
CPT/HCPCS: 36415; 80048; 80053; 81001; 83690; 83735; 84100; 85025; 87506; 93005; 96360; 96361; 96372; 97162; 97166; 99221; 99285; A4216; G0378